=== PATIENT | female | born 1955 | race Two or more races ===

== ENCOUNTER 2020-04-17 11:26 | Outpatient (REF) | payer MEDICARE, MEDICAID, SELFPAY | END 2020-04-17 11:27 | disposition home or self-care (01) | LOC: HO.MAMMO 11:26 | PROVIDERS: Visit Provider Internal Medicine | DX: Z13.89 Encounter for screening for other disorder (principal) ==

== ENCOUNTER → 2020-05-15 08:37 | Outpatient (BNVA) | payer MEDICARE, MEDICAID, SELFPAY | PROVIDERS: PCP Internal Medicine; Referring Provider Internal Medicine; Visit Provider Surgery | DX: L73.9 Follicular disorder, unspecified (principal) | CPT/HCPCS: 99202 ==

== ENCOUNTER 2020-05-22 10:21 | Outpatient (REF) | payer MEDICARE, MEDICAID, SELFPAY ==
--- NOTE | 2020-05-22 10:26 | MM_ITS ---
EXAMINATION: BONE DENSITOMETRY CLINICAL INDICATION: Menopause. COMPARISON: Previous BD dated 04/29/2017 and baseline BD dated 04/17/2011. TECHNIQUE: Using a [employer] DXA System (software version: 13.1) manufactured by [employer], dual-energy x-ray absorptiometry was performed of the lumbar spine and left hip. The images are of good technical quality. Summary results are attached. FINDINGS: AP SPINE L1-L4: Current: BMD 1.033 g/cm2, Z-score -0.1, T-score -1.2, osteopenia, 2.9% increase from previous, 6.5% increase from baseline (<5% change is not significant). Prior: BMD 1.004 g/cm2. Baseline: BMD 0.970 g/cm2. LEFT FEMUR, NECK: Current: BMD 0.957 g/cm2, Z-score 0.7, T-score -0.6, normal. Prior: BMD 0.958 g/cm2. Baseline: BMD 0.979 g/cm2. LEFT FEMUR, TOTAL: Current: BMD 0.905 g/cm2, Z-score 0.2, T-score -0.8, normal, 1.0% decrease from previous, 0.9% increase from baseline (<5% change is not significant). Prior: BMD 0.914 g/cm2. Baseline: BMD 0.897 g/cm2. IDENTIFIED RISK FACTORS: Menopause, hysterectomy, bilateral oophorectomy. HISTORY OF FRACTURE: None listed. MEDICATIONS: Calcium, vitamin D. MM/XR DEXA axial skeleton IMPRESSION: 1. DIAGNOSIS: Osteopenia based on the lowest T-score value of -1.2 in the lumbar spine applying World Health Organization criteria. 2. 10-YEAR FRACTURE RISK PREDICTION, FRAX: Major osteoporotic fracture (clinical spine, forearm, hip or shoulder) 4.2%. Hip fracture 0.2%. 3. Treatment Recommendations: NOF guidelines recommend consideration for treatment in postmenopausal women and men age 50 and older presenting with the following: -A hip or vertebral (clinical or morphometric) fracture. -T-score less than or equal to -2.5 at the femoral neck or spine after appropriate evaluation to exclude secondary causes. -Low bone mass at the hip or spine and a 10-year fracture probability by FRAX of greater than or equal to 3% for hip fracture or greater than or equal to 20% for major osteoporotic fracture based on the [place] adapted WHO algorithm. 4. Other Recommendations: All treatment decisions require clinical judgment and consideration of individual patient factors, including patient preferences, comorbidities, previous drug use, risk factors not captured in the FRAX model (e.g. frailty, falls, vitamin D deficiency, increased bone turnover, interval significant decline in bone density) and possible under or overestimation of fracture risk by FRAX. Additional medical evaluation for secondary cause of low bone mineral density may be appropriate. FUTURE SCAN RECOMMENDATION: People with diagnosed cases of osteoporosis or at high risk for fracture should have regular bone mineral density tests. For patients eligible for Medicare, routine testing is allowed once every 2 years. The testing frequency can be increased to one year for patients who have rapidly progressing disease, those who are receiving or discontinuing medical therapy to restore bone mass, or have additional risk factors.
--- NOTE | 2020-05-22 10:49 | MM_ITS ---
EXAMINATION: MM SCREENING DIGITAL BREAST TOMOSYNTHESIS, BILATERAL CLINICAL INFORMATION: Screening. Asymptomatic. The lifetime risk of breast cancer based on the Tyrer-Cuzick Model is 6.9%. COMPARISON: Mammography: May 13, 2019 and studies dating back to April 27, 2016 TECHNIQUE: Digital breast tomosynthesis is performed in both the craniocaudal and mediolateral oblique views along with computer-aided detection (CAD). Synthesized 2D images are generated from the tomosynthesis. FINDINGS: The breasts are almost entirely fatty (ACR BI-RADS breast composition Category a). There are no significant masses, abnormal calcifications, or other abnormalities. Postsurgical changes are seen bilaterally with dystrophic calcification and fat necrosis. MM/MM tomosynthesis screening BI IMPRESSION: There are no significant changes from prior study. ASSESSMENT: BI-RADS 2: Benign RECOMMENDATION: Routine annual mammography screening. This patient's information was entered into a reminder system with a target due date for their next mammogram.
== END 2020-05-22 10:22 | disposition home or self-care (01) ==
LOC: HO.MAMMO 10:21
PROVIDERS: PCP Internal Medicine; Visit Provider Internal Medicine
DX: Z12.31 Encounter for screening mammogram for malignant neoplasm of breast (principal); Z13.820 Encounter for screening for osteoporosis; M85.89 Other specified disorders of bone density and structure, multiple sites; Z78.0 Asymptomatic menopausal state; Z90.710 Acquired absence of both cervix and uterus; Z90.722 Acquired absence of ovaries, bilateral
CPT/HCPCS: 77063; 77067; 77080

== ENCOUNTER → 2020-06-25 14:22 | Outpatient (BNVA) | payer MEDICARE, MEDICAID, SELFPAY | PROVIDERS: PCP Internal Medicine; Visit Provider Surgery | DX: L02.211 Cutaneous abscess of abdominal wall (principal); L73.9 Follicular disorder, unspecified | CPT/HCPCS: 99212 ==

== ENCOUNTER 2020-09-05 07:47 | Outpatient (REF) | payer MEDICARE, MEDICAID, SELFPAY ==
[2020-09-05 10:45] LABS: Alanine Aminotransferase 18 U/L (0-31); Albumin Level 4.1 g/dL (3.5-5.0); Alkaline Phosphatase 73 U/L (39-117); Anion Gap 15 (12-20); Aspartate Amino Transferase 19 U/L (5-31); Bilirubin Total 0.6 mg/dL (0.0-1.0); Blood Urea Nitrogen 11 mg/dL (9-16); Calcium 9.3 mg/dL (8.4-10.2); Carbon Dioxide 25 mmol/L (22-29); Chloride 105 mmol/L (96-108); Estimated Glomerular Filt Rate > 60; Glucose Random 84 mg/dL (60-115); Potassium 4.6 mmol/L (3.3-5.1); Sodium 140 mmol/L (135-145); Total Protein 6.9 g/dL (6.5-8.0)
== END 2020-09-05 07:48 | disposition home or self-care (01) ==
LOC: HO.LAB 07:47
PROVIDERS: PCP Internal Medicine; Visit Provider Student in an Organized Health Care Education/Training Program
DX: M1A.0720 Idiopathic chronic gout, left ankle and foot, without tophus (tophi) (principal); M89.49 Other hypertrophic osteoarthropathy, multiple sites; Z79.899 Other long term (current) drug therapy
CPT/HCPCS: 36415; 80053; 84550; 99212

== ENCOUNTER → 2020-09-16 12:33 | Outpatient (BNVA) | payer MEDICARE, MEDICAID, SELFPAY | PROVIDERS: PCP Internal Medicine; Visit Provider Internal Medicine Cardiovascular Disease | DX: I10 Essential (primary) hypertension (principal); R42 Dizziness and giddiness | CPT/HCPCS: 93005; 99212 ==

== ENCOUNTER 2020-10-01 13:30 | Outpatient (RCR) | payer MEDICARE, MEDICAID, SELFPAY ==
--- NOTE | 2020-09-19 15:25 | MHC.OT.OEV ---
[address] [phone] F: [phone] Occupational Therapy Evaluation Diagnosis: B/L HAND PAIN Date of Onset: 08/13/19 Attending Provider: Damian Zaman Prescribed Treatment: CHERYL LOMBARDI Follow Up Appointment: History of Current Condition: REPORTS PAIN IN L THUMB AND RIGHT ARM, INCREASE OVER THE PAST 1 YEAR. Significant Medical History: OSTEOPOROSIS, ARTHRITIS Precautions/Contraindications: UNIVERSAL Patient Goals: TO DECREASE PAIN AND INCREASE STRENGTH Hand Dominance: Right Observations: WRITHING MOVEMENTS NOTED QuickDASH Score: 70% Prior Level of Function and Occupation Self Care, Employment, Leisure: IND ADLs, IADLs HOBBIES INCLUDE: ENJOYS COOKING AND CLEANING, WATCHING TV Living Situation, Family and/or Social Support: LIVES WITH DAUGHTER Current Level of Function and Occupation Self Care, Employment, Leisure: DIFFICULTIES WITH WRINGING OUT MOP, PICKING UP OBJECTS WITH LEFT HAND; REPORTS SEVERE DIFFICULTY WITH OPENING TIGHT JAR, DOING 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 Sleep: SEVERE DIFFICULTY SLEEPING DUE TO PAIN IN LEFT THUMB Driving: DENIES DIFFICULTIES Pain Assessment Pain Score: 8 Pain Scale Used: Numeric (0 - 10) Pain Location and Description: LEFT THUMB, CMC Aggravating Factors: ACCIDENTALLY HITTING HAND ON SURFACES, GRIPPING/ HOLDING Alleviating Factors: TAKING PAIN MEDICATION; USES WARM WATER FOR COMFORT Skin and Soft Tissue Assessment Skin and Soft Tissue: Swelling Comments: ATROPHY TO THENAR REGION B/L HANDS, OA CHANGES; TENDER TO PALPATION Nerve assessment Ulnar Nerve: Median Nerve: WFL Radial Nerve: Comments: Edema Assessment Upper Extremity: Left Impaired Lower Extremity: Comments: MILD EDEMA TO LEFT HAND, DORSAL D2/D3 MCPs Dexterity Assessment Dexterity: Left Impaired Comments: FUNCTIONAL DEXTERITY TEST: LEFT 46 SECONDS (MINIMALLY FUNCTIONAL) , RIGHT 27 SECONDS Special Tests Comments: AROM(PROM) Strength Shoulder Flexion: Extension: Abduction: Internal Rotation: External Rotation: Comments: C/O R SHOULDER PAIN, CONTINUE TO ASSESS Flexion: Extension: Abduction: Internal Rotation: External Rotation: Comments: Elbow Flexion: Extension: Pronation: Supination: Comments: WFL Flexion: Extension: Pronation: Supination: Comments: Wrist Flexion: L 72, R 58 Extension: L 75, R 62 Ulnar Deviation: Radial Deviation: Comments: Flexion: Extension: Ulnar Deviation: Radial Deviation: Comments: Thumb Thumb CMC Flexion: Thumb MCP Flexion: L 52, R 60 Thumb IP Flexion: L 80, R 80 Radial Abduction: L 80, R 64 Palmar Abduction: Dorado (Kapandji 0-10): L 7/10 Comments: Digits Index MCP: PIP: DIP: Long MCP: PIP: DIP: Ring MCP: PIP: DIP: Small MCP: PIP: DIP: Comments: Gross Grasp: L 25, R 35 Lateral Pinch: L 7, R 8 Two-Point Pinch: L 4, R 5 Three-Jaw Mane: L 4, R 6 Comments: SUBMAX EFFORT ON LEFT Patient Education Primary Language: Operations Lead Required: Yes Current Knowledge: Understands information with skills for self-management Teaching Method: Demonstration Handouts Verbal Education Needs Identified on Evaluation: ADL's Disease Information Equipment Use Exercise Pain Safety How did patient/family demonstrate learning? Patient demonstrates Patient verbalizes Barriers to Learning: None Readiness for Learning: Accepting Who was educated? 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 SHE LIVES WITH HER DAUGHTER AND REQUIRES ASSIST WITH SOME IADLs YET DECLINES DIFFICULTIES WITH ADLs. SHE REPORTS A 70% LIMITATION PER THE QUICK DASH ASSESSMENT. ONGOING OT IS WARRANTED TO ADDRESS THE AREAS MENTIONED BELOW AND IMPROVE QOL. STG Duration: 4 WEEKS Short Term Goals: IND HEP IND USE OF HEAT, INCLUDING HOME PARAFFIN UNIT IND JOINT PROTECTION AND ACTIVITY MODIFICATION IND ORTHOSIS WEAR IMPROVE DEXTERITY TO L HAND TO FUNCTIONAL LEVEL PER FUNCTIONAL DEXTERITY TEST REPORT <4/10 PAIN WITH MODERATE IADLs AND WORK RELATED TASKS LTG Duration: Snf Goals: SEE ABOVE Frequency and Duration: The patient will be seen 2X/WEEK FOR 4 WEEKS Treatment Plan: Therapeutic Exercise Therapeutic Activity Home Exercise Program Splinting Neuro Re-ed Patient Education Desensitization/Sensory Re-ed Edema Control ADL Training Ultrasound NMES Iontophoresis Paraffin Fluidotherapy MHP Cold Packs Joint Mobilization Soft Tissue Mobilization Kinesiotaping Electronically Signed By: NISA SHOOK OTR/L Reviewed/agree with student documentation: N/A Therapist: Please sign and return to therapist, Thank you for your referral.
--- NOTE | 2020-10-03 14:39 | MHC.OT.DC ---
[address] [phone] F: [phone] Occupational Therapy Discharge Note Provider: Damian Zaman Diagnosis: B/L HAND PAIN Date of Evaluation: 09/19/20 Date of Discharge: 10/03/20 Treatments to Date: 5 Discharge Status: Achieved Goals Improved Function Independent with HEP Patient Elected to Stop Discharge Summary: Pt READY FOR TRANSITION TO HOME BASED PROGRAM. REPORTS GOOD UNDERSTANDING AND COMPLIANCE WITH THUMB OP SPLINT AND ACTIVITY MODIFICATION. LOW PAIN REPORTED. NO FURTHER OT WARRANTED AT THIS TIME. D/C OT SERVICES. Electronically Signed By: NISA SHOOK OTR/Liv Reviewed/agree with student documentation: N/A Therapist: Please Sign and return to therapist, thank you for your referral.
== END 2020-10-03 14:40 | disposition other institution (70) ==
LOC: HO.OT 13:30
PROVIDERS: Visit Provider Student in an Organized Health Care Education/Training Program
DX: M1A.0720 Idiopathic chronic gout, left ankle and foot, without tophus (tophi) (principal)
CPT/HCPCS: 97110; 97140; 97166; 97760

== ENCOUNTER 2020-10-16 11:06 | Emergency (ER) | payer MEDICARE, MEDICAID, SELFPAY ==
--- NOTE | ~2020-10-16 | CT_ITS ---
EXAMINATION: CT CERVICAL SPINE WITHOUT CONTRAST CLINICAL INFORMATION: Fall. COMPARISON: None TECHNIQUE: Axial images through the cervical spine without contrast. Sagittal and coronal reconstructions on the technologist workstation were performed. This CT examination was performed using dose optimization techniques as appropriate, variously including the following: *Automated exposure control *Adjustment of mA and/or kV according to patient size (this includes techniques or standardized protocols for targeted exams where dose is matched to indication/reason for exam; i.e. extremities or head) *Use of iterative reconstruction technique DLP: 381 mGy-cm FINDINGS: Bone alignment is normal. No fracture or dislocation is seen. There is multilevel degenerative disc disease and spondylosis from C3-C3-C4 to C7-T1. There are degenerative changes of the C1 dens articulation. Prevertebral soft tissues are normal. Visualized lung apices are clear. CT/CT cervical spine wo con IMPRESSION: Degenerative changes. No fracture or dislocation seen.
--- NOTE | ~2020-10-16 | XR_ITS ---
EXAMINATION: XR CHEST CLINICAL INFORMATION: Fall COMPARISON: Previous chest x-ray November 2019 TECHNIQUE: Frontal view of the chest was obtained. FINDINGS: The cardiac and mediastinal contours are stable. The lungs are clear. There is no pleural effusion or pneumothorax. Bony structures are unremarkable. XR/XR chest 1V IMPRESSION: No evidence for acute disease in the chest.
--- NOTE | ~2020-10-16 | CT_ITS ---
EXAMINATION: CT ORBIT WITHOUT CONTRAST CLINICAL INFORMATION: Left orbit injury. Evaluate for fracture. COMPARISON: None TECHNIQUE: Axial images through the orbits without contrast. Sagittal and coronal reconstructions on the technologist workstation were performed. This CT examination was performed using dose optimization techniques as appropriate, variously including the following: *Automated exposure control *Adjustment of mA and/or kV according to patient size (this includes techniques or standardized protocols for targeted exams where dose is matched to indication/reason for exam; i.e. extremities or head) *Use of iterative reconstruction technique DLP: 381 mGy-cm FINDINGS: There is preseptal soft tissue swelling overlying the left orbit. Post septal soft tissues are normal. The right orbit is normal. No fracture or dislocation is seen. Visualized paranasal sinuses, mastoid air cells and ureters are clear. The temporomandibular joints are normal. CT/CT orbit BI wo con IMPRESSION: No fracture or dislocation seen. Preseptal soft tissue swelling over the left orbit.
--- NOTE | ~2020-10-16 | CT_ITS ---
EXAMINATION: CT HEAD WITHOUT CONTRAST CLINICAL INFORMATION: Headache. Fall. COMPARISON: None TECHNIQUE: Contiguous axial imaging was performed from the skull base to vertex without intravenous administration of contrast. This CT examination was performed using dose optimization techniques as appropriate, variously including the following: *Automated exposure control *Adjustment of mA and/or kV according to patient size (this includes techniques or standardized protocols for targeted exams where dose is matched to indication/reason for exam; i.e. extremities or head) *Use of iterative reconstruction technique DLP: 623 mGy-cm FINDINGS: There is no evidence of acute intracranial hemorrhage or territorial infarction. No abnormal mass effect or midline shift is seen. Cummings to white matter differentiation is well preserved. No extra-axial fluid collections are identified. The ventricles are normal in size. There is no abnormal attenuation within the brain parenchyma. No skull fracture is seen. There is preseptal soft tissue swelling over the left orbit. There is soft tissue swelling over the left frontal bone. There is soft tissue swelling over the left posterior parietal bone near the vertex. CT/CT head/brain wo con IMPRESSION: No acute intracranial findings. Preseptal soft tissue swelling over the left orbit and left frontal bone. Post orbital soft tissues are normal. Question mild soft tissue swelling over the left posterior parietal bone near the vertex.
[2020-10-16 11:16] VITALS: BP 154/99; PULSE 90; RESP 18; TEMP 36.7; O2SAT 98; BMI 28.7
[2020-10-16 13:39] VITALS: BP 119/77; PULSE 80; RESP 16; TEMP 36.2; O2SAT 98
--- NOTE | 2020-10-16 13:55 | ED.FALL ---
HPI - Fall General Chief Complaint: Fall <ELLEN Tomas - Last Filed: 10/20/20 14:30> Stated Complaint: fall - face and chest injury <ELLEN Tomas Last Filed: 10/20/20 14:30> Time Seen by Provider: 10/16/20 12:33 <ELLEN Tomas - Last Filed: 10/20/20 14:30> History of Present Illness HPI Narrative: Patient complains of headache, left facial pain around the left orbit, neck pain and some right-sided chest wall pain after falling yesterday at home, she tripped and fell she did not faint, she has no vision changes she has no nausea or vomiting she has no retrograde amnesia, no numbness weakness or tingling no shortness of breath, no exertional pain, pain in the right side of the chest is produced when she touches it or with movement and is continuous, no palpitations no difficulty breathing no abdominal pain no nausea or vomiting <ELLEN Tomas Last Filed: 10/20/20 14:30> Related Data Home Medications: Home Medications Medication Instructions Recorded Confirmed amlodipine 5 mg tablet 5 mg PO QAM 05/15/20 09/05/20 aspirin 81 mg tablet,delayed 81 mg PO BEDTIME 05/15/20 09/05/20 release bacitracin 500 unit/gram topical TOPICAL DAILY 05/15/20 09/05/20 ointment calcium carbonate 500 mg(1,250 1 tab PO BID 05/15/20 09/05/20 mg)-vitamin D3 400 unit chewable tablet carvedilol 12.5 mg tablet 12.5 mg PO BID 05/15/20 09/05/20 lisinopril 40 mg tablet 40 mg PO DAILY 05/15/20 09/05/20 omeprazole 20 mg capsule,delayed 20 mg PO QAM 05/15/20 09/05/20 release peg [id number] 1 1 drp OPHTHALMIC (EYE) TID 05/15/20 09/05/20 %-0.2 %-0.2 % eye drops white petrolatum-mineral oil 83 OPHTHALMIC (EYE) BEDTIME 05/15/20 09/05/20 %-15 % eye ointment Previous Rx's Medication Instructions Recorded chlorhexidine gluconate 4 % 1 appl TOPICAL .3 times weekly 60 05/15/20 topical liquid Days #237 ml mupirocin 2 % topical ointment 1 appl TOPICAL BID #15 g 05/15/20 acetaminophen 650 mg 650 mg PO Q8H PRN #90 tab 09/05/20 tablet,extended release allopurinol 100 mg tablet 100 mg PO QAM #30 tab 10/09/20 acetaminophen 500 mg PO Q6H PRN #20 tab 10/16/20 oxycodone 5 mg PO Q6H PRN #10 tab 10/16/20 <ELLEN Tomas - Last Filed: 10/20/20 14:30> Allergies/Adverse Reactions: Allergies Allergy/AdvReac Type Severity Reaction Status Date / Time No Known Allergies Allergy Verified 10/16/20 11:21 <ELLEN Tomas - Last Filed: 10/20/20 14:30> Review of Systems Review of Systems: Positive for neck pain, head pain, facial pain, and right rib pain after fall Negatives are no fever no chills no dizziness no weakness no fainting no feeling faint no amnesia no confusion no vision change no numbness weakness or tingling no shortness of breath no palpitations no exertional symptoms no abdominal pain no nausea or vomiting no, no rash <ELLEN Tomas Last Filed: 10/20/20 14:30> Yes all other systems are reviewed and are negative <ELLEN Tomas - Last Filed: 10/20/20 14:30> [facility] Past Medical History Source: nursing notes reviewed <ELLEN Tomas - Last Filed: 10/20/20 14:30> Medical History: Medical History Gastritis Osteopenia Osteoporosis <ELLEN Tomas - Last Filed: 10/20/20 14:30> Surgical History: Surgical History History of delivery History of throat surgery Status post incision and drainage <ELLEN Tomas Last Filed: 10/20/20 14:30> Family History Family History: Family History Sister History of breast cancer <ELLEN Tomas Last Filed: 10/20/20 14:30> Social History Social History: Social History (Updated 09/05/20 @ 07:58 by Margarito Flaherty LPN) Alcohol intake: never <ELLEN Tomas - Last Filed: 10/20/20 14:30> Physical Exam Vital Signs: Vital Signs: Last Vital Signs Temp 97.1 F 10/16/20 13:39 Pulse 80 10/16/20 13:39 Resp 16 10/16/20 13:39 BP 119/77 10/16/20 13:39 Pulse Ox 98 10/16/20 13:39 Body Mass Index 28.7 <ELLEN Tomas - Last Filed: 10/20/20 14:30> Vital Signs: Last Vital Signs Temp 97.1 F 10/16/20 13:39 Pulse 80 10/16/20 13:39 Resp 16 10/16/20 13:39 BP 119/77 10/16/20 13:39 Pulse Ox 98 10/16/20 13:39 Body Mass Index 28.7 <Glen Reyes MD - Last Filed: 11/18/20 06:26> General appearance is no acute distress, calm comfortable and cooperative, A&O x3 There is a hematoma on the left forehead, there are some minor facial abrasions there is some tenderness to the left orbit, extraocular motions are full and intact Not there is tenderness to the back of the neck including the midline, there is tenderness to the right side lower chest wall, pain is reproduced with movement and deep breath, there is no ecchymosis or wounds on the skin The lungs are clear to auscultation with full symmetric equal breath sounds bilateral The heart no murmur auscultated The abdomen is soft nontender The extremities full range of motion x4 without tenderness swelling or deformity Neuro no focal motor or sensory deficit, gait and balance are normal, verbal interaction speech and comprehension are normal, cerebellar exam is normal, cranial nerves 2-12 intact as tested, pupils equal round reactive to light and extraocular motions are intact <ELLEN Tomas - Last Filed: 10/20/20 14:30> Course Course Course Narrative: There were no acute findings in CT exam of the head, the orbits, or the C-spine Chest x-ray was normal no pneumothorax or obvious rib fractures Patient remains comfortable throughout visit and is discharged home ambulating easily <ELLEN Tomas - Last Filed: 10/20/20 14:30> I have reviewed the chart <Glen Reyes MD - Last Filed: 11/18/20 06:26> Discharge Plan Discharge Clinical Impression: Abrasion of face, Neck strain, Multiple contusions <ELLEN Tomas - Last Filed: 10/20/20 14:30> Patient Disposition: Home, Self-Care <ELLEN Tomas - Last Filed: 10/20/20 14:30> Additional Instructions: CT scans of face neck and head did not show any dangerous or significant injury Chest x-ray did not show any injury Follow with primary doctor We gave you a tetanus shot <ELLEN Tomas - Last Filed: 10/20/20 14:30> Prescriptions: New oxycodone 5 mg tablet 5 mg PO Q6H PRN (Reason: pain) Qty: 10 RF: 0 acetaminophen 500 mg tablet 500 mg PO Q6H PRN (Reason: pain) Qty: 20 RF: 0 No Action allopurinol 100 mg tablet 100 mg PO QAM Qty: 30 RF: 3 bacitracin 500 unit/gram ointment topical DAILY RF: 0 calcium carbonate-vitamin D3 500 mg(1,250mg) -400 unit tablet,chewable 1 tab PO BID RF: 0 omeprazole 20 mg capsule,delayed release(DR/EC) 20 mg PO QAM RF: 0 carvedilol 12.5 mg tablet 12.5 mg PO BID RF: 0 amlodipine 5 mg tablet 5 mg PO QAM RF: 0 lisinopril 40 mg tablet 40 mg PO DAILY RF: 0 aspirin 81 mg tablet,delayed release (DR/EC) 81 mg PO BEDTIME RF: 0 Artificial Tears([id number]) 1-0.2-0.2 % drops 1 drp ophthalmic (eye) TID RF: 0 Artificial Tears (hemant/min) 83-15 % ointment ophthalmic (eye) BEDTIME RF: 0 mupirocin 2 % ointment 1 appl topical BID Qty: 15 RF: 0 chlorhexidine gluconate [Hibiclens] 4 % liquid 1 appl topical .3 times weekly 60 Days Qty: 237 RF: 1 acetaminophen [Tylenol Arthritis Pain] 650 mg tablet extended release 650 mg PO Q8H PRN (Reason: pain) Qty: 90 RF: 3 <ELLEN Tomas - Last Filed: 10/20/20 14:30> Interventions: ED Discharge Assessment Last Done: 10/16/20 14:08 <ELLEN Tomas - Last Filed: 10/20/20 14:30> Discharge Date/Time: 10/16/20 14:10 <ELLEN Tomas - Last Filed: 10/20/20 14:30>
[2020-10-16] MEDS: Diphth,Pertus(ACell),Tet Adult 0.5 ML SYRINGE IM (14:04)
== END 2020-10-16 14:10 | disposition home or self-care (01) ==
PROVIDERS: Emergency Provider Emergency Medicine; PCP Internal Medicine
DX: S00.81XA Abrasion of other part of head, initial encounter (principal); S16.1XXA Strain of muscle, fascia and tendon at neck level, initial encounter; S00.83XA Contusion of other part of head, initial encounter; W01.10XA Fall on same level from slipping, tripping and stumbling with subsequent striking against unspecified object, initial encounter; R07.89 Other chest pain; Y93.9 Activity, unspecified; Y92.019 Unspecified place in single-family (private) house as the place of occurrence of the external cause; Y99.9 Unspecified external cause status
CPT/HCPCS: 70450; 70480; 71045; 72125; 90471; 90715; 99284

== ENCOUNTER 2020-11-21 12:29 | Outpatient (REF) | payer MEDICARE, MEDICAID, SELFPAY ==
--- NOTE | ~2020-11-21 | US_ITS ---
EXAMINATION: US THYROID CLINICAL INFORMATION: 2 cm nodule found on CT 10/30/2020. COMPARISON: None TECHNIQUE: Linear transducer grayscale and color Doppler examination with attention to the region of the thyroid. FINDINGS: SIZE: Measurements of the thyroid lobes and nodules are given in sagittal, anteroposterior and transverse dimensions respectively. Right Thyroid Lobe: 3.6 x 1.3 x 1.41 cm, volume 3.4 mL. Parenchyma: The gland echotexture is homogeneous. Thyroid vascularity is increased. Left Thyroid Lobe: 4.3 x 1.8 x 2.0 cm, volume 8.2 mL. Parenchyma: The gland echotexture is homogeneous. Thyroid vascularity is normal. Isthmus: 0.14 cm in maximum AP dimension. Estimated total number of nodules greater than or equal to 1 cm: 1. Meter Inspector nodules are described as follows: 1. Location: Left lower. Size: 2.9 x 1.8 x 2.5 cm, volume 6.7 mL. Nodule characteristics: Composition: Solid/almost completely solid (2). Echogenicity: Isoechoic (1). Shape: Not taller than wide (0). Margins: Smooth (0). Echogenic Foci: None (0). None (0).None (0). ACR TI-RADS total points: 3 ACR TI-RADS category: 3 NODES: No lymphadenopathy is seen in the tissue surrounding the thyroid gland. US/US thyroid IMPRESSION: A large lower pole nodule seen based on ACR TI-RADS reference a short-term follow up in one year can be performed. ACR TI-RADS RECOMMENDATION REFERENCE: Ultrasound-guided fine-needle aspiration, followup ultrasound, no further follow up. * TR1 (0 point) and TR 2 (2 points): No FNA or follow up * TR3 (3 points): FNA if more than or equal to 2.5 cm in maximum dimension, follow up ultrasound in 1, 3 and 5 years if 1.5 to 2.4 cm in maximum dimension. * TR4 (4-6 points): FNA if more than or equal to 1.5 cm in maximum dimension, follow up ultrasound in 1, 2, 3 and 5 years if 1 to 1.4 cm in maximum dimension. * TR5 (more than or equal to 7 points): FNA if more than or equal to 1 cm in maximum dimension, follow up ultrasound every year for 5 years if 0.5 to 0.9 cm in maximum dimension. * TR3, TR4 or TR5 nodules that are below the size threshold for follow up receive no follow up.
== END 2020-11-21 12:30 | disposition home or self-care (01) ==
LOC: HO.US 12:29
PROVIDERS: Visit Provider Nurse Practitioner Family
DX: E04.1 Nontoxic single thyroid nodule (principal)
CPT/HCPCS: 76536

== ENCOUNTER → 2021-01-08 12:19 | Outpatient (BNVA) | payer MEDICARE, MEDICAID, SELFPAY | PROVIDERS: PCP Internal Medicine; Visit Provider Internal Medicine | DX: E04.1 Nontoxic single thyroid nodule (principal); E55.9 Vitamin D deficiency, unspecified | CPT/HCPCS: 99202 ==

== ENCOUNTER 2021-01-13 07:22 | Outpatient (REF) | payer MEDICARE, MEDICAID, SELFPAY ==
[2021-01-13 08:57] LABS: Alanine Aminotransferase 24 U/L (0-31); Alkaline Phosphatase 87 U/L (39-117); Anion Gap 15 (12-20); Aspartate Amino Transferase 21 U/L (5-31); Bilirubin Total 0.5 mg/dL (0.0-1.0); Blood Urea Nitrogen 16 mg/dL (9-16); Calcium 9.8 mg/dL (8.4-10.2); Carbon Dioxide 22 mmol/L (22-29); Chloride 108 mmol/L (96-108); Estimated Glomerular Filt Rate > 60; Glucose Random 93 mg/dL (60-115); Potassium 4.5 mmol/L (3.3-5.1); Sodium 140 mmol/L (135-145); Total Protein 6.9 g/dL (6.5-8.0)
[2021-01-13 09:21] LABS: Free T4 (Free Thyroxine) 0.93 ng/dL (0.71-1.85); Thyroid Stimulating Hormone 1.65 uIU/mL (0.32-4.0); Vitamin D 25-OH Total 19.1 ng/mL (>30)
[2021-01-15 11:32] LABS: Calcium (PTHI) 9.7 mg/dL (8.6-10.4); PTHI 60 pg/mL (14-64)
== END 2021-01-13 07:23 | disposition home or self-care (01) ==
LOC: HO.LAB 07:22
PROVIDERS: PCP Internal Medicine; Visit Provider Internal Medicine
DX: E55.9 Vitamin D deficiency, unspecified (principal); E04.1 Nontoxic single thyroid nodule
CPT/HCPCS: 36415; 80053; 82306; 83970; 84100; 84439; 84443

== ENCOUNTER 2021-01-24 08:28 | Outpatient (REF) | payer MEDICARE, MEDICAID, SELFPAY ==
--- NOTE | ~2021-01-24 | XR_ITS ---
EXAMINATION: XR KNEE STANDING, BILATERAL XR KNEE, RIGHT XR KNEE, LEFT CLINICAL INFORMATION: Pain. COMPARISON: Left knee radiographs dated 01/11/2020. TECHNIQUE: AP standing view of the right and left knee. Lateral and sunrise views of the right and left knee. FINDINGS: Right Knee: Mild medial compartment joint space narrowing. Tiny tricompartmental marginal osteophytes. No osseous erosion. No fracture or dislocation. No significant joint effusion. Ossified loose bodies at the lateral patellofemoral joint measuring up to 0.5 cm. Ossified loose body adjacent to the posterior femur measuring up to 0.8 cm. Left Knee: [id number] tricompartmental joint space narrowing with small tract compartmental marginal osteophytes. Ossified loose body in the lateral patellofemoral joint measuring 0.5 cm. No acute fracture or dislocation. No osseous erosion. No significant joint effusion. 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 LEFT KNEE: Tricompartmental osteoarthritis with a patellofemoral compartment as well as body. Findings are slightly progressed when compared to the prior examination.
--- NOTE | ~2021-01-24 | XR_ITS ---
EXAMINATION: XR KNEE STANDING, BILATERAL XR KNEE, RIGHT XR KNEE, LEFT CLINICAL INFORMATION: Pain. COMPARISON: Left knee radiographs dated 01/11/2020. TECHNIQUE: AP standing view of the right and left knee. Lateral and sunrise views of the right and left knee. FINDINGS: Right Knee: Mild medial compartment joint space narrowing. Tiny tricompartmental marginal osteophytes. No osseous erosion. No fracture or dislocation. No significant joint effusion. Ossified loose bodies at the lateral patellofemoral joint measuring up to 0.5 cm. Ossified loose body adjacent to the posterior femur measuring up to 0.8 cm. Left Knee: [id number] tricompartmental joint space narrowing with small tract compartmental marginal osteophytes. Ossified loose body in the lateral patellofemoral joint measuring 0.5 cm. No acute fracture or dislocation. No osseous erosion. No significant joint effusion. 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 LEFT KNEE: Tricompartmental osteoarthritis with a patellofemoral compartment as well as body. Findings are slightly progressed when compared to the prior examination.
--- NOTE | ~2021-01-24 | XR_ITS ---
EXAMINATION: XR KNEE STANDING, BILATERAL XR KNEE, RIGHT XR KNEE, LEFT CLINICAL INFORMATION: Pain. COMPARISON: Left knee radiographs dated 01/11/2020. TECHNIQUE: AP standing view of the right and left knee. Lateral and sunrise views of the right and left knee. FINDINGS: Right Knee: Mild medial compartment joint space narrowing. Tiny tricompartmental marginal osteophytes. No osseous erosion. No fracture or dislocation. No significant joint effusion. Ossified loose bodies at the lateral patellofemoral joint measuring up to 0.5 cm. Ossified loose body adjacent to the posterior femur measuring up to 0.8 cm. Left Knee: Fntk-go-gcbrpfwo tricompartmental joint space narrowing with small tract compartmental marginal osteophytes. Ossified loose body in the lateral patellofemoral joint measuring 0.5 cm. No acute fracture or dislocation. No osseous erosion. No significant joint effusion. 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 LEFT KNEE: Tricompartmental osteoarthritis with a patellofemoral compartment as well as body. Findings are slightly progressed when compared to the prior examination.
== END 2021-01-24 08:29 | disposition home or self-care (01) ==
LOC: HO.HOSX 08:28
PROVIDERS: PCP Internal Medicine; Visit Provider Physician Assistant
DX: M25.562 Pain in left knee (principal); M25.561 Pain in right knee; M17.0 Bilateral primary osteoarthritis of knee; M81.0 Age-related osteoporosis without current pathological fracture; E55.9 Vitamin D deficiency, unspecified; Z87.891 Personal history of nicotine dependence
CPT/HCPCS: 20610; 73560; 73565; 99202; J1040

== ENCOUNTER → 2021-02-12 12:58 | Outpatient (BNVA) | payer MEDICARE, MEDICAID, SELFPAY | PROVIDERS: Visit Provider Nurse Practitioner Family | DX: M1A.0720 Idiopathic chronic gout, left ankle and foot, without tophus (tophi) (principal); M89.49 Other hypertrophic osteoarthropathy, multiple sites | CPT/HCPCS: 99212 ==

== ENCOUNTER → 2021-02-19 13:13 | Outpatient (BNVA) | payer MEDICARE, MEDICAID, SELFPAY | PROVIDERS: PCP Internal Medicine; Visit Provider Nurse Practitioner Family | DX: I10 Essential (primary) hypertension (principal); R42 Dizziness and giddiness | CPT/HCPCS: 99212 ==

== ENCOUNTER 2021-02-27 08:35 | Outpatient (REF) | payer MEDICARE, MEDICAID, SELFPAY ==
--- NOTE | 2021-02-27 09:24 | PM.OP ---
Brief Operative Note Date of Service: 02/27/21 Pre-op diagnosis: Multinodular Thyroid Procedure: This is doctor Melony Schuster. This is an ultrasound-guided fine-needle aspiration report. Date of Examination: 02/27/2021 Indication: Multinodular Thyroid Porcedure: Procedure was explained to the patient. Alternatives, the risk and benefits were discussed. Written consent was obtained. A time-out was also obtained. After sterile preparation, fine-needle aspiration of a 2.9 cm left lower pole thyroid nodule was performed using direct ultrasound guidance to confirm accurate needle placement. Three aspirations were made using 27 gauge needles. Samples were submitted for cytology. 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 The patient tolerated the procedure well. Aftercare instructions were provided. Impression: Uncomplicated fine needle aspiration biopsy of a 2.9 cm left lower pole thyroid nodule under ultrasound guidance. Surgeon: Melony Schuster, DO Was an [employer] Developer used for this Procedure?: No Estimated blood loss (mL): 0
== END 2021-02-27 08:36 | disposition home or self-care (01) ==
LOC: HO.US 08:35
PROVIDERS: Visit Provider Internal Medicine
DX: E04.1 Nontoxic single thyroid nodule (principal)
CPT/HCPCS: 10005; 88172; 88173

== ENCOUNTER → 2021-03-13 10:08 | Outpatient (BNVA) | payer MEDICARE, MEDICAID, SELFPAY | PROVIDERS: PCP Internal Medicine; Visit Provider Internal Medicine | DX: Z13.89 Encounter for screening for other disorder (principal) | CPT/HCPCS: Q3014 ==

== ENCOUNTER 2021-05-23 14:28 | Outpatient (REF) | payer MEDICARE, MEDICAID, SELFPAY ==
--- NOTE | ~2021-05-23 | MM_ITS ---
EXAMINATION: MM SCREENING DIGITAL BREAST TOMOSYNTHESIS, BILATERAL CLINICAL INFORMATION: Screening. Asymptomatic. Remote history reduction mammoplasty, 2008. The lifetime risk of breast cancer based on the Tyrer-Cuzick Model is 7%. COMPARISON: Mammography: 02/21/2020, 05/13/2019, 05/11/2018, 04/29/2017 TECHNIQUE: Digital breast tomosynthesis is performed in both the craniocaudal and mediolateral oblique views along with computer-aided detection (CAD). Synthesized 2D images are generated from the tomosynthesis. FINDINGS: There are scattered areas of fibroglandular density (ACR BI-RADS breast composition Category b). There is old stable scarring, scattered oil cysts, and scattered benign isolated and grouped coarse calcifications consistent with the prior reduction mammoplasty. Left breast shows no interval changes from prior study. Right breast has 4 x 5 mm focal asymmetric density upper outer quadrant, or approximately 6 cm from nipple. Tiny benign oil cyst near this area noted is no longer demonstrated. Patient will be recalled to further characterize. MM/MM tomosynthesis screening BI IMPRESSION: 1. Right: Small focal asymmetric density upper outer quadrant, or approximately 5 x 4 mm. Left: No significant changes from prior exams. ASSESSMENT: BI-RADS 0: Incomplete - Need Additional Imaging Evaluation RECOMMENDATION: 1. Additional views of the right breast (spot CC, spot ML). 2. Targeted ultrasound if warranted after review of the additional views. 3. Radiology department staff will contact the patient for additional imaging. This patient's information was entered into a reminder system with a target due date for their next mammogram.
== END 2021-05-23 14:29 | disposition home or self-care (01) ==
LOC: HO.MAMMO 14:28
PROVIDERS: Visit Provider Internal Medicine
DX: Z12.31 Encounter for screening mammogram for malignant neoplasm of breast (principal)
CPT/HCPCS: 77063; 77067

== ENCOUNTER 2021-05-28 10:07 | Outpatient (REF) | payer MEDICARE, MEDICAID, SELFPAY ==
--- NOTE | ~2021-05-28 | MM_ITS ---
EXAMINATION: MM DIAGNOSTIC DIGITAL BREAST TOMOSYNTHESIS, RIGHT US DIAGNOSTIC ULTRASOUND BREAST, RIGHT CLINICAL INFORMATION: Recall from screening for focal asymmetric density upper outer right breast, possibly related to sequela from remote reduction mammoplasty. COMPARISON: Mammography: 05/23/2021, 02/21/2020, 05/13/2019, 05/11/2018, 04/29/2017, 04/27/1960 TECHNIQUE: Digital breast tomosynthesis is performed. 2D images are generated from the tomosynthesis. The following views are obtained: Spot CC, spot MLO, spot ML x2. Ultrasound right breast is targeted to the outer breast. Grayscale imaging and color Doppler are performed without and with harmonics. FINDINGS: There are scattered areas of fibroglandular density (ACR BI-RADS breast composition Category b). Additional views show small asymmetric density mid outer breast on the spot CC view. Finding is poorly visualized on the MLO or ML views. There are scattered oil cysts and stable stromal markings. In retrospect, the finding for recall resides at the site of a small oil cyst of similar size on prior mammograms dating back to 2016. The oil cyst is no longer demonstrated, apparently replaced by the recently noted finding. Ultrasound right breast shows of focal fat necrosis mid outer breast 9:00 position 7 cm from nipple. This appears as an oval hyperechoic area measuring 7 x 4 mm with an internal small circumscribed hypoechoic focus measuring under 3 mm. There is no architectural abnormality or suspicious finding on ultrasound. Results are discussed with the patient at time of visit. Finding on recent mammography is suspected to represent fat necrosis at site of an oil cyst. Ultrasound also confirms small focus fat necrosis. Management options discussed with patient including short interval follow-up as well as stereotactic sampling. Patient is in agreement to follow-up right breast in 6 months. MM/MM tomosynthesis added views R IMPRESSION: Finding on recent mammography is suspected to represent fat necrosis at site of a prior oil cyst of similar size. ASSESSMENT: BI-RADS 3: Probably Benign RECOMMENDATION: Diagnostic right mammography in 6 months. This patient's information was entered into a reminder system with a target due date for their next mammogram.
== END 2021-05-28 10:08 | disposition home or self-care (01) ==
LOC: HO.MAMMO 10:07
PROVIDERS: Visit Provider Internal Medicine
DX: R92.2 Inconclusive mammogram (principal)
CPT/HCPCS: 76642; 77061; 77065

== ENCOUNTER 2021-06-11 10:21 | Outpatient (REF) | payer MEDICARE, MEDICAID, SELFPAY | END 2021-06-11 10:22 | disposition home or self-care (01) | LOC: HO.LAB 10:21 | PROVIDERS: Visit Provider Internal Medicine | DX: Z20.822 Contact with and (suspected) exposure to COVID-19 (principal) | CPT/HCPCS: C9803; U0003; U0005 ==

== ENCOUNTER 2021-06-25 13:02 | Outpatient (REF) | payer MEDICARE, MEDICAID, SELFPAY ==
[2021-06-25 15:22] LABS: Binax Internal Control QC Valid; Binax Now Covid-19 Ag Negative (Negative)
== END 2021-06-25 13:03 | disposition home or self-care (01) ==
LOC: HO.LAB 13:02
PROVIDERS: Visit Provider Internal Medicine
DX: Z20.822 Contact with and (suspected) exposure to COVID-19 (principal)
CPT/HCPCS: C9803

== ENCOUNTER 2021-07-17 09:34 | Outpatient (REF) | payer MEDICARE, MEDICAID, SELFPAY ==
[2021-07-17 11:55] LABS: Alanine Aminotransferase 22 U/L (0-31); Albumin Level 3.9 g/dL (3.5-5.0); Alkaline Phosphatase 81 U/L (39-117); Anion Gap 12 (12-20); Aspartate Amino Transferase 20 U/L (5-31); Bilirubin Total 0.5 mg/dL (0.0-1.0); Blood Urea Nitrogen 11 mg/dL (9-16); Calcium 9.9 mg/dL (8.4-10.2); Carbon Dioxide 26 mmol/L (22-29); Chloride 108 mmol/L (96-108); Estimated Glomerular Filt Rate > 60; Glucose Random 93 mg/dL (60-115); Potassium 4.6 mmol/L (3.3-5.1); Sodium 141 mmol/L (135-145); Total Protein 6.9 g/dL (6.5-8.0)
== END 2021-07-17 09:35 | disposition home or self-care (01) ==
LOC: HO.LAB 09:34
PROVIDERS: Visit Provider Nurse Practitioner Family
DX: M10.9 Gout, unspecified (principal)
CPT/HCPCS: 36415; 80053; 84550

== ENCOUNTER 2021-08-20 05:43 | Emergency (ER) | payer MEDICARE, MEDICAID, SELFPAY ==
[2021-08-20 05:51] VITALS: BP 168/103; PULSE 78; RESP 16; TEMP 37; O2SAT 97; BMI 28.8
--- NOTE | 2021-08-20 06:24 | ECG_ITS ---
Test Reason : HYPERTENSION Blood Pressure : / mmHG Vent. Rate : 070 BPM Atrial Rate : 070 BPM P-R Int : 186 ms QRS Dur : 074 ms QT Int : 390 ms P-R-T Axes : 000 -21 -04 degrees QTc Int : 421 ms Normal sinus rhythm Normal ECG When compared with ECG of 22-NOV-2019 12:25, Inverted T waves have replaced nonspecific T wave abnormality in Inferior leads Referred By: Briana Souza Electronically Signed By:SUSIE DONG MD
--- NOTE | 2021-08-20 06:51 | ED.GENADULT ---
HPI - General Adult General Chief complaint: General Medical Stated complaint: diarrhea/nausea? Time Seen by Provider: 08/20/21 06:24 Source: patient Mode of arrival: ambulatory Limitations: no limitations History of Present Illness HPI narrative: Patient comes to the emergency room complaining of high blood pressure. Patient states that she feels that the front of her head feels very hot. Patient takes her blood pressure at home, states it has been approximately 190 systolic for approximately 2-3 days. Patient states that on August 11, patient had a thyroidectomy done. Patient states that her fine-needle biopsy was suspicious for papillary thyroid cancer. However, patient states that approximately 3 days ago, she received news, her pathology report is back, patient did not have cancer. Patient states that she is very upset that she had a thyroidectomy done , and since she received dose news, patient states that her blood pressure has been elevated. Related Data Home Medications Medication Instructions Recorded Confirmed amlodipine 5 mg tablet 5 mg PO QAM 05/15/20 03/13/21 aspirin 81 mg tablet,delayed 81 mg PO BEDTIME 05/15/20 03/13/21 release calcium carbonate 500 mg-vitamin 1 tab PO BID 05/15/20 03/13/21 D3 10 mcg (400 unit) chewable tablet carvedilol 12.5 mg tablet 12.5 mg PO BID 05/15/20 03/13/21 lisinopril 40 mg tablet 40 mg PO DAILY 05/15/20 03/13/21 omeprazole 20 mg capsule,delayed 20 mg PO QAM 05/15/20 03/13/21 release peg [id number] 1 1 drp OPHTHALMIC (EYE) TID 05/15/20 03/13/21 %-0.2 %-0.2 % eye drops white petrolatum-mineral oil 83 OPHTHALMIC (EYE) BEDTIME 05/15/20 03/13/21 %-15 % eye ointment Previous Rx's Medication Instructions Recorded chlorhexidine gluconate 4 % 1 appl TOPICAL .3 times weekly 60 05/15/20 topical liquid (Hibiclens) Days #237 ml mupirocin 2 % topical ointment 1 appl TOPICAL BID #15 g 05/15/20 acetaminophen 650 mg 650 mg PO Q8H PRN #90 tab 09/05/20 tablet,extended release (Tylenol Arthritis Pain) acetaminophen 500 mg tablet 500 mg PO Q6H PRN #20 tab 10/16/20 cholecalciferol (vitamin D3) 1,250 1,250 mcg PO QWEEK 56 Days #8 cap 03/13/21 mcg (50,000 unit) capsule cholecalciferol (vitamin D3) 50 50 mcg PO DAILY 30 Days #30 cap 03/13/21 mcg (2,000 unit) capsule allopurinol 100 mg tablet 100 mg PO QAM #30 tab 08/15/21 amlodipine 5 mg tablet 5 mg PO DAILY #30 tab 08/20/21 Allergies Allergy/AdvReac Type Severity Reaction Status Date / Time No Known Allergies Allergy Verified 03/13/21 13:09 Review of Systems Review of Systems: Constitutional : No Weight loss, No Fever, No Chills, No Night Sweats, No Fatigue, No Malaise ENT/Mouth : No Hearing loss, No Ear Pain, No Nasal Congestion, No Sinus Pain, No Hoarseness, No sore throat, No Rhinorrhea, No Swallowing Difficulty Eyes: No Eye Pain, No Swelling, No Redness, No Foreign Body, No Discharge, No Vision Changes Cardiovascular : No Chest Pain, No SOB, No Dyspnea on Exertion, No Orthopnea, No Edema, No Palpitations, complaining of high blood pressure of 190 systolic Respiratory : No Cough, No Sputum, No Wheezing, No Smoke Exposure, No Dyspnea Gastrointestinal : No Nausea, No Vomiting, No Diarrhea, No Constipation, No abdominal Pain, No Hematochezia, No Melena Genitourinary : no irregular bleeding, No Dysuria, No Urinary Frequency, No Hematuria, No Urinary Incontinence, No Urgency, No Flank Pain, No Urinary Flow Changes, No Hesitancy Musculoskeletal : No joint pain, No Myalgias, No Joint Swelling Skin : No Skin Lesions, No rash Neuro : No Weakness, No Numbness, No Paresthesias, No Loss of Consciousness, No Dizziness, complaining of head pressure, sensation of head warmth in the forehead Psych : No Anxiety/Panic, No Depression, No SI/HI/AH/VH, No Social Issues, Heme/Lymph: No Bruising, No Bleeding,No Lymphadenopathy Endocrine : No Polyuria, No Polydipsia, No Temperature Intolerance PMFSH Past Medical History Medical History Essential hypertension Gastritis Osteopenia Osteoporosis Thyroid nodule Vitamin D deficiency Surgical History History of delivery History of throat surgery Status post incision and drainage Family History Family History Sister History of breast cancer Father Automobile collision Mother Heart attack Social History Social History Alcohol intake: never Patient Tobacco Use Status: Former Tobacco user Tobacco use type: Cigarette Cigarettes Per Day: 5 Years Smoked: 10 Use of substances other than those prescribed or required for medical reasons: No Advance Directives: No Advance Directives Information Provided: Yes Current occupational status: employed 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 Oriented X3. No acute distress. Eyes: Pupils equal, round and reactive to light. ENT: Pharynx normal. Neck: Healing horizontal incision in the neck, no signs of infection CVS: Normal heart rate and rhythm. Pulses normal. Normal S1 and S2 Respiratory: No respiratory distress. Breath sounds normal. No Wheezing. No rales Abdomen: Soft and nontender. No rigidity. No distention. Skin: Skin warm and dry. Normal skin color. Normal skin turgor. Extremities: No lower extremity edema. No Lacerations. No Rash Neuro: Oriented X 3. No motor deficit. No sensory deficit. Moving all extermities. No slurred speech. Course Course Course Narrative: Labs pending, the TSH and EKG. Patient was Haven her home medications lisinopril 40 mg, carvedilol 12.5 mg, and her amlodipine instead of 5 mg, she was given 10 mg. Patient's TSH is slightly decreased, free T4 within normal limits. At this time, patient has been only on her medication for a week. Patient instructed to continue taking the current dose. Patient's blood pressure improved to 131/81 after taking her home medications +5 additional mg of amlodipine. Patient asymptomatic. Medical Decision Making Lab Data Result diagrams: 08/20/21 07:15 08/20/21 07:02 Labs: Lab Results 08/20/21 08/20/21 08/20/21 Range/Units 07:02 07:15 07:15 WBC 6.6 (4.8-10.8) X10*3/uL RBC 4.42 (4.20-5.50) X10*6/uL Hgb 12.8 (12.0-16.0) g/dl Hct 39.6 (37.0-47.0) % MCV 89.6 (80.0-98.0) fL MCH 29.0 (27.0-33.0) pg MCHC 32.3 (31.0-35.0) g/dl RDW 13.3 (11.0-16.0) % Plt Count 303 (160-400) X10*3/uL MPV 10.3 (9.4-12.3) fL Immature Gran % (Auto) 0.3 (0.0-0.4) % Neut % (Auto) 45.4 (45-73) % Lymph % (Auto) 38.2 (20-40) % [place] % (Auto) 11.7 H (2-11) % Eos % (Auto) 3.2 (0-4) % Baso % (Auto) 1.2 (0-2) % Lymph # (Auto) 2.5 (1.2-4.9) X10*3/uL [place] # (Auto) 0.8 (0.1-1.2) X10*3/uL Eos # (Auto) 0.2 (0.0-0.4) X10*3/uL Baso # (Auto) 0.1 (0.0-0.2) X10*3/uL Abs Immat Gran (auto) 0.02 (0.00-0.03) X10*3/uL Absolute Neuts (auto) 3.0 (2.0-8.3) x10*3/uL Absolute Nucleated RBC 0.000 (0.0-0.012) X10*3/uL Nucleated RBC % (auto) 0.0 (0.0-0.2) /100WBC Sodium 140 (135-145) mmol/L Potassium 4.6 (3.3-5.1) mmol/L Chloride 107 (96-108) mmol/L Carbon Dioxide 25 (22-29) mmol/L Anion Gap 13 (12-20) BUN 13 (9-16) mg/dL Creatinine 0.75 (0.5-1.4) mg/dL Estim Creat Clear Calc 77.1 Estimated GFR > 60 Random Glucose 95 (60-115) mg/dL Calcium 9.7 (8.4-10.2) mg/dL Total Bilirubin 0.6 (0.0-1.0) mg/dL Direct Bilirubin 0.2 (0.0-0.5) mg/dL AST 19 (5-31) U/L ALT 24 (0-31) U/L Alkaline Phosphatase 76 (39-117) U/L Troponin I High Sens < 3.5 (<3.5-17.0) ng/L B-Natriuretic Peptide 42 (<100) pg/mL Total Protein 6.8 (6.5-8.0) g/dL Albumin 3.8 (3.5-5.0) g/dL TSH 0.21 L (0.32-4.0) uIU/mL Free T4 1.55 (0.71-1.85) ng/dL Discharge Plan Discharge Clinical Impression: Hypertension Patient Disposition: Home, Self-Care Instructions: Hypertension (ED) Additional Instructions: Please follow-up with your primary care physician tomorrow. If you have any worsening or new symptoms, please return to the emergency room or call 911 Prescriptions: New amlodipine 5 mg tablet 5 mg PO DAILY Qty: 30 0RF Rx Instructions: Add this tablet of amlodipine 5 mg to your current medication regimen. Take 10 mg of amlodipine per day No Action allopurinol 100 mg tablet 100 mg PO QAM Qty: 30 4RF acetaminophen 500 mg tablet 500 mg PO Q6H PRN (Reason: pain) Qty: 20 0RF calcium carbonate-vitamin D3 500 mg(1,250mg) -400 unit tablet,chewable 1 tab PO BID 0RF omeprazole 20 mg capsule,delayed release(DR/EC) 20 mg PO QAM 0RF carvedilol 12.5 mg tablet 12.5 mg PO BID 0RF amlodipine 5 mg tablet 5 mg PO QAM 0RF lisinopril 40 mg tablet 40 mg PO DAILY 0RF aspirin 81 mg tablet,delayed release (DR/EC) 81 mg PO BEDTIME 0RF Artificial Tears([id number]) 1-0.2-0.2 % drops 1 drp ophthalmic (eye) TID 0RF Artificial Tears (hemant/min) 83-15 % ointment ophthalmic (eye) BEDTIME 0RF mupirocin 2 % ointment 1 appl topical BID Qty: 15 0RF chlorhexidine gluconate [Hibiclens] 4 % liquid 1 appl topical .3 times weekly 60 Days Qty: 237 1RF acetaminophen [Tylenol Arthritis Pain] 650 mg tablet extended release 650 mg PO Q8H PRN (Reason: pain) Qty: 90 3RF cholecalciferol (vitamin D3) 50 mcg (2,000 unit) capsule 50 mcg PO DAILY 30 Days Qty: 30 11RF cholecalciferol (vitamin D3) 1,250 mcg (50,000 unit) capsule 1,250 mcg PO QWEEK 56 Days Qty: 8 0RF
[2021-08-20 07:06] VITALS: BP 129/82; PULSE 67; RESP 18; O2SAT 95
[2021-08-20 07:19] LABS: MANUAL DIFF FLAG NO
[2021-08-20 07:22] LABS: Basophils Absolute Auto 0.1 X10*3/uL (0.0-0.2); Basophils Percent Auto 1.2 % (0-2); Eosinophils Absolute Auto 0.2 X10*3/uL (0.0-0.4); Eosinophils Percent Auto 3.2 % (0-4); Hematocrit 39.6 % (37.0-47.0); Hemoglobin 12.8 g/dl (12.0-16.0); Imm Gran Abs Auto 0.02 X10*3/uL (0.00-0.03); Imm Gran Pct Auto 0.3 % (0.0-0.4); Lymphocytes Absolute Auto 2.5 X10*3/uL (1.2-4.9); Lymphocytes Percent Auto 38.2 % (20-40); Mean Corpuscular HGB Conc 32.3 g/dl (31.0-35.0); Mean Corpuscular Volume 89.6 fL (80.0-98.0); Mean Platelet Volume 10.3 fL (9.4-12.3); Monocytes Absolute Auto 0.8 X10*3/uL (0.1-1.2); Monocytes Percent Auto 11.7 % (2-11); Neutrophils Percent Auto 45.4 % (45-73); Platelet Count 303 X10*3/uL (160-400); Red Blood Count 4.42 X10*6/uL (4.20-5.50); Red Cell Distribution Width 13.3 % (11.0-16.0); White Blood Count 6.6 X10*3/uL (4.8-10.8)
[2021-08-20 07:28] LABS: Alanine Aminotransferase 24 U/L (0-31); Albumin Level 3.8 g/dL (3.5-5.0); Alkaline Phosphatase 76 U/L (39-117); Anion Gap 13 (12-20); Aspartate Amino Transferase 19 U/L (5-31); Bilirubin Direct 0.2 mg/dL (0.0-0.5); Bilirubin Total 0.6 mg/dL (0.0-1.0); Blood Urea Nitrogen 13 mg/dL (9-16); Calcium 9.7 mg/dL (8.4-10.2); Carbon Dioxide 25 mmol/L (22-29); Chloride 107 mmol/L (96-108); Creatinine Clr Calc Pharmacy 77.1; Estimated Glomerular Filt Rate > 60; Glucose Random 95 mg/dL (60-115); Potassium 4.6 mmol/L (3.3-5.1); Sodium 140 mmol/L (135-145); Total Protein 6.8 g/dL (6.5-8.0)
[2021-08-20] MEDS: lisinopriL 40 MG TABLET PO (07:31)
[2021-08-20] MEDS: amLODIPine Besylate 10 MG TABLET PO (07:31)
[2021-08-20] MEDS: carvediloL 12.5 MG TABLET PO (07:32)
[2021-08-20 07:43] LABS: B Type Natriuretic Peptide 42 pg/mL (<100); Troponin-I High Sensitivity < 3.5 ng/L (<3.5-17.0)
[2021-08-20 08:32] VITALS: BP 131/81; PULSE 66; RESP 18; O2SAT 98
[2021-08-20 08:44] LABS: TSH reflex Free T4 0.21 uIU/mL (0.32-4.0)
[2021-08-20 09:42] LABS: Free T4 (Free Thyroxine) 1.55 ng/dL (0.71-1.85)
[2021-08-20 10:21] VITALS: BP 105/77; PULSE 74; RESP 18; O2SAT 98
== END 2021-08-20 10:31 | disposition home or self-care (01) ==
PROVIDERS: Emergency Provider Emergency Medicine
DX: I10 Essential (primary) hypertension (principal); R06.02 Shortness of breath; Z79.899 Other long term (current) drug therapy; Z79.82 Long term (current) use of aspirin; Z87.891 Personal history of nicotine dependence
CPT/HCPCS: 36415; 80048; 80076; 83880; 84439; 84443; 84484; 85025; 93005; 99283; 99284

== ENCOUNTER → 2021-08-28 14:34 | Outpatient (BNVA) | payer MEDICARE, MEDICAID, SELFPAY | PROVIDERS: Referring Provider Internal Medicine; Visit Provider Nurse Practitioner | DX: Z13.89 Encounter for screening for other disorder (principal) ==

== ENCOUNTER 2021-09-15 11:19 | Outpatient (REF) | payer MEDICARE, MEDICAID, SELFPAY ==
[2021-09-15 12:41] LABS: Alanine Aminotransferase 31 U/L (0-31); Albumin Level 3.7 g/dL (3.5-5.0); Alkaline Phosphatase 75 U/L (39-117); Anion Gap 11 (12-20); Aspartate Amino Transferase 22 U/L (5-31); Bilirubin Total 0.4 mg/dL (0.0-1.0); Blood Urea Nitrogen 11 mg/dL (9-16); Calcium 9.5 mg/dL (8.4-10.2); Carbon Dioxide 22 mmol/L (22-29); Chloride 109 mmol/L (96-108); Estimated Glomerular Filt Rate > 60; Glucose Random 102 mg/dL (60-115); Phosphorus 3.7 mg/dL (2.7-4.5); Potassium 4.5 mmol/L (3.3-5.1); Sodium 137 mmol/L (135-145); Total Protein 6.5 g/dL (6.5-8.0)
[2021-09-15 12:47] LABS: Free T4 (Free Thyroxine) 1.73 ng/dL (0.71-1.85); Thyroid Stimulating Hormone 0.03 uIU/mL (0.32-4.0); Vitamin D 25-OH Total 41.9 ng/mL (>30)
[2021-09-16 13:27] LABS: Calcium (PTHI) 9.3 mg/dL (8.6-10.4); PTHI 95 pg/mL (16-77)
== END 2021-09-15 11:20 | disposition home or self-care (01) ==
LOC: HO.LAB 11:19
PROVIDERS: PCP Internal Medicine; Visit Provider Internal Medicine
DX: M1A.0720 Idiopathic chronic gout, left ankle and foot, without tophus (tophi) (principal); E04.1 Nontoxic single thyroid nodule; E55.9 Vitamin D deficiency, unspecified
CPT/HCPCS: 36415; 80053; 82306; 83970; 84100; 84439; 84443

== ENCOUNTER → 2021-09-16 13:47 | Outpatient (BNVA) | payer MEDICARE, MEDICAID, SELFPAY | PROVIDERS: PCP Internal Medicine; Referring Provider Internal Medicine; Visit Provider Nurse Practitioner Family | DX: I10 Essential (primary) hypertension (principal) | CPT/HCPCS: 99212 ==

== ENCOUNTER 2021-10-27 10:48 | Outpatient (REF) | payer MEDICARE, MEDICAID, SELFPAY ==
[2021-10-27 12:34] LABS: Free T4 (Free Thyroxine) 1.44 ng/dL (0.71-1.85); Thyroid Stimulating Hormone 0.27 uIU/mL (0.32-4.0)
== END 2021-10-27 10:49 | disposition home or self-care (01) ==
LOC: HO.LAB 10:48
PROVIDERS: Nurse Practitioner Gerontology; PCP Internal Medicine; Visit Provider Internal Medicine
DX: E03.9 Hypothyroidism, unspecified (principal)
CPT/HCPCS: 36415; 84439; 84443

== ENCOUNTER → 2021-11-06 09:21 | Outpatient (BNVA) | payer MEDICARE, MEDICAID, SELFPAY | PROVIDERS: PCP Internal Medicine; Visit Provider Internal Medicine | DX: E55.9 Vitamin D deficiency, unspecified (principal); E89.0 Postprocedural hypothyroidism | CPT/HCPCS: Q3014 ==

== ENCOUNTER 2021-11-21 13:08 | Outpatient (REF) | payer MEDICARE, MEDICAID, SELFPAY ==
--- NOTE | ~2021-11-21 | MM_ITS ---
EXAMINATION: MM DIAGNOSTIC DIGITAL BREAST TOMOSYNTHESIS, RIGHT CLINICAL INFORMATION: Six-month follow up density. Previous breast reduction surgery. The lifetime risk of breast cancer based on the Tyrer-Cuzick Model is 6.5%. COMPARISON: Mammography: 05/28/2021 and studies dating back to 03/30/2012. TECHNIQUE: Digital breast tomosynthesis is performed in both the craniocaudal and mediolateral oblique views along with computer-aided detection (CAD). Synthesized 2D images are generated from the tomosynthesis. FINDINGS: The breasts are almost entirely fatty (ACR BI-RADS breast composition Category a). There are no new significant masses, abnormal calcifications, or other abnormalities. Previously noted density about the upper outer aspect of the right breast is not identified on today's study. Results are provided to the patient at time of visit by the technologist. MM/MM tomosynthesis diagnostic RT IMPRESSION: Previously noted right breast density no longer evident. No new suspicious right breast findings. ASSESSMENT: BI-RADS 1: Negative RECOMMENDATION: Routine annual mammography screening, due in 6 months. This patient's information was entered into a reminder system with a target due date for their next mammogram.
== END 2021-11-21 13:09 | disposition home or self-care (01) ==
LOC: HO.MAMMO 13:08
PROVIDERS: Visit Provider Internal Medicine
DX: R92.2 Inconclusive mammogram (principal)
CPT/HCPCS: 77061; 77065

== ENCOUNTER 2022-01-02 10:24 | Outpatient (REF) | payer MEDICARE, MEDICAID, SELFPAY ==
[2022-01-02 11:40] LABS: Free T4 (Free Thyroxine) 1.29 ng/dL (0.71-1.85)
== END 2022-01-02 10:25 | disposition home or self-care (01) ==
LOC: HO.LAB 10:24
PROVIDERS: PCP Internal Medicine; Visit Provider Internal Medicine
DX: E03.9 Hypothyroidism, unspecified (principal)
CPT/HCPCS: 36415; 84439; 84443

== ENCOUNTER → 2022-01-06 10:29 | Outpatient (BNVA) | payer MEDICARE, MEDICAID, SELFPAY | PROVIDERS: PCP Internal Medicine; Visit Provider Nurse Practitioner Family | DX: M1A.0720 Idiopathic chronic gout, left ankle and foot, without tophus (tophi) (principal); M17.0 Bilateral primary osteoarthritis of knee | CPT/HCPCS: Q3014 ==

== ENCOUNTER → 2022-01-07 07:57 | Outpatient (BNVA) | payer MEDICARE, MEDICAID, SELFPAY | PROVIDERS: PCP Internal Medicine; Visit Provider Internal Medicine | DX: E89.0 Postprocedural hypothyroidism (principal); E55.9 Vitamin D deficiency, unspecified; Z79.899 Other long term (current) drug therapy | CPT/HCPCS: 99212 ==

== ENCOUNTER → 2022-02-23 12:33 | Outpatient (BNVA) | payer MEDICARE, MEDICAID, SELFPAY | PROVIDERS: PCP Internal Medicine; Referring Provider Internal Medicine; Visit Provider Internal Medicine Cardiovascular Disease | DX: I10 Essential (primary) hypertension (principal); R42 Dizziness and giddiness; Z79.899 Other long term (current) drug therapy | CPT/HCPCS: 93005; 99212 ==

== ENCOUNTER 2022-05-26 13:11 | Outpatient (REF) | payer MEDICARE, MEDICAID, SELFPAY ==
--- NOTE | ~2022-05-26 | MM_ITS ---
EXAMINATION: MM SCREENING DIGITAL BREAST TOMOSYNTHESIS, BILATERAL CLINICAL INFORMATION: Screening. Asymptomatic. The lifetime risk of breast cancer based on the Tyrer-Cuzick Model is 7%. COMPARISON: Mammography: November 21, 2021 and studies dating back to April 27, 2016 TECHNIQUE: Digital breast tomosynthesis is performed in both the craniocaudal and mediolateral oblique views along with computer-aided detection (CAD). Synthesized 2D images are generated from the tomosynthesis. FINDINGS: The breasts are almost entirely fatty (ACR BI-RADS breast composition Category a). There are no new significant masses, abnormal calcifications, or other abnormalities. MM/MM tomosynthesis screening BI IMPRESSION: No significant changes from prior exam. ASSESSMENT: BI-RADS 1: Negative RECOMMENDATION: Routine annual mammography screening. This patient's information was entered into a reminder system with a target due date for their next mammogram.
[2022-05-26 16:46] LABS: Albumin Level 3.9 g/dL (3.5-5.0); Free T4 (Free Thyroxine) 1.32 ng/dL (0.71-1.85); Phosphorus 4.4 mg/dL (2.7-4.5); Vitamin D 25-OH Total 46.4 ng/mL (>30)
[2022-05-27 11:52] LABS: Calcium (PTHI) 9.9 mg/dL (8.6-10.4); PTHI 47 pg/mL (16-77)
== END 2022-05-26 13:12 | disposition home or self-care (01) ==
LOC: HO.MAMMO 13:11
PROVIDERS: Absent Provider Internal Medicine; PCP Internal Medicine; Visit Provider Internal Medicine
DX: Z12.31 Encounter for screening mammogram for malignant neoplasm of breast (principal); E89.0 Postprocedural hypothyroidism; E55.9 Vitamin D deficiency, unspecified
CPT/HCPCS: 36415; 77063; 77067; 82040; 82306; 83970; 84100; 84439; 84443

== ENCOUNTER 2022-06-13 01:17 | Emergency (ER) | payer MEDICARE, MEDICAID, SELFPAY ==
--- NOTE | 2022-06-13 | ECG_ITS ---
Test Reason : fall Blood Pressure : / mmHG Vent. Rate : 076 BPM Atrial Rate : 076 BPM P-R Int : 166 ms QRS Dur : 072 ms QT Int : 418 ms P-R-T Axes : -02 -18 -18 degrees QTc Int : 470 ms Normal sinus rhythm Minimal voltage criteria for LVH, may be normal variant ( R in aVL ) Nonspecific ST and T wave abnormality Borderline ECG When compared with ECG of 20-AUG-2021 06:57, QT has lengthened Referred By: Generic ED Physician Electronically Signed By:EV GIRON
--- NOTE | ~2022-06-13 | XR_ITS ---
EXAMINATION: XR CHEST CLINICAL INFORMATION: Status post fall COMPARISON: 10/16/2020 and 11/22/2019 TECHNIQUE: Frontal view of the chest was obtained. FINDINGS: Left basilar subsegmental atelectasis. Nodular opacity objects over the right midlung, not evident previously. No pleural effusion or pneumothorax. Normal heart size. Aorta is tortuous and atherosclerotic. No acute osseous abnormalities. XR/XR chest 1V IMPRESSION: * No acute findings. * Nodular opacity projecting over the right midlung, not evident previously. This could represent a pulmonary nodule. Recommend nonemergent CT chest.
[2022-06-13 01:38] VITALS: BP 110/76; PULSE 81; RESP 18; TEMP 36.9; O2SAT 98; BMI 27.4
[2022-06-13 02:53] LABS: MANUAL DIFF FLAG NO
[2022-06-13 02:54] LABS: Basophils Percent Auto 0.5 % (0-2); Eosinophils Percent Auto 0.2 % (0-4); Hematocrit 40.4 % (37.0-47.0); Hemoglobin 13.8 g/dl (12.0-16.0); Imm Gran Abs Auto 0.02 X10*3/uL (0.00-0.03); Imm Gran Pct Auto 0.3 % (0.0-0.4); Lymphocytes Absolute Auto 1.8 X10*3/uL (1.2-4.9); Lymphocytes Percent Auto 29.3 % (20-40); Mean Corpuscular HGB Conc 34.2 g/dl (31.0-35.0); Mean Corpuscular Hemoglobin 29.4 pg (27.0-33.0); Mean Corpuscular Volume 86.1 fL (80.0-98.0); Mean Platelet Volume 10.3 fL (9.4-12.3); Monocytes Absolute Auto 0.7 X10*3/uL (0.1-1.2); Monocytes Percent Auto 10.9 % (2-11); Neutrophils Absolute Auto 3.5 x10*3/uL (2.0-8.3); Neutrophils Percent Auto 58.8 % (45-73); Platelet Count 261 X10*3/uL (160-400); Red Blood Count 4.69 X10*6/uL (4.20-5.50); Red Cell Distribution Width 14.6 % (11.0-16.0)
[2022-06-13 03:00] LABS: COVID-19 Test Positive (Negative); IDNOW Serial# 16C4AD1C
[2022-06-13 03:10] LABS: IDNOW Serial# BCCEAD1C; Influenza A Negative (Negative); Influenza B2 Negative (Negative)
[2022-06-13 03:14] LABS: Anion Gap 12 (12-20); Blood Urea Nitrogen 12 mg/dL (9-16); Calcium 8.9 mg/dL (8.4-10.2); Carbon Dioxide 22 mmol/L (22-29); Chloride 104 mmol/L (96-108); Creatinine Clr Calc Pharmacy 67.8; Estimated Glomerular Filt Rate > 60; Glucose Random 135 mg/dL (60-115); Potassium 4.1 mmol/L (3.3-5.1); Sodium 134 mmol/L (135-145)
[2022-06-13 03:50] VITALS: BP 144/99; PULSE 65; RESP 16; TEMP 36.8; O2SAT 98
--- NOTE | 2022-06-13 03:50 | MHC.EDTECH ---
this pct assumed care of pt at this time ,vitals sign taken and warm blanket given .
--- OUTSIDE RECORDS SUMMARY | 2022-06-13 04:15 | XMS_ITS | Continuity of Care Document ---
:1955 Author Organization [facility] Address [address] [place] [address]- Care Team Providers Name Role Phone Tj Strong MD Primary Care Physician Encounter [facility] Date(s): 12/31/21 - 01/30/22 [facility] [address], [place] [address] Attending Physician: Karissa Howard Admitting Physician: Admtr, Karissa Referring Physician: Admtr, Ar8 Allergies, Adverse Reactions, Alerts No Known Medication Allergies Immunizations Given and Recorded Vaccine Date Status Refusal Reason influenza virus vaccine, inactivated 04/17/21 Recorded influenza virus vaccine, inactivated 03/11/20 Recorded influenza virus vaccine, inactivated 06/19/19 Recorded influenza virus vaccine, inactivated 04/14/18 Recorded SARS-CoV-2 (COVID-19) mRNA BNT-162b2 vac 03/18/21 Recorde d SARS-CoV-2 (COVID-19) mRNA BNT-162b2 vac 08/20/20 Recorde d SARS-CoV-2 (COVID-19) mRNA BNT-162b2 vac 07/30/20 Recorde d tetanus/diphtheria/pertussis, acel(Tdap) 10/16/20 Recorde d tetanus/diphtheria/pertussis, acel(Tdap) 11/22/12 Recorde d pneumococcal 23-valent vaccine 06/19/19 Recorded Zoster Vaccine Live 04/14/18 Recorded pneumococcal 13-valent vaccine 04/14/18 Recorded hepatitis B adult vaccine 09/11/13 Recorded hepatitis B adult vaccine 06/27/13 Recorded hepatitis B adult vaccine 02/10/13 Recorded hepatitis B adult vaccine 12/20/12 Recorded Measles/Mumps/Rubella Virus Vaccine 03/08/09 Recorded Hepatitis A Adult Vaccine 03/05/09 Recorded tetanus-diphtheria toxoids (Td) 06/14/07 Recorded Medications allopurinol 100 mg oral tablet 100 mg, 1, tablet, By Mouth, Daily, # 30 tablet, Refills 0, Maintenance, 04/23/21 11:12:00 EST, Partial fill upon patient request if the prescription is for a schedule II opioid drug. Start Date: 04/23/21 Status: OrderedAmlodipine = 10 mg, By Mouth, Daily, 0 Refills, Maintenance, 03/20/21 12:26:00 EDT, Partial fill upon patient request if the prescription is for a schedule II opioid drug. Start Date: 03/20/21 Status: Orderedaspirin 81 mg oral capsule 4 capsule = 324 mg, By Mouth, Every 4 hours, 0 Refills, Maintenance, 04/23/21 11:13:00 EST, Partial fill upon patient request if the prescription is for a schedule II opioid drug. Start Date: 04/23/21 Status: Orderedcarvedilol 12.5 mg oral tablet 12.5 mg, 1, tablet, By Mouth, 2 times a day, # 180 tablet, Refills 0, Maintenance, 04/23/21 11:12:00EST, Partial fill upon patient request if the prescription is for a schedule II opioid drug. Start Date: 04/23/21 Status: Orderedlevothyroxine 125 mcg (0.125 mg) oral tablet 1 tablet = 125 mcg, By Mouth, Daily, # 30 tablet, 2 Refills, Maintenance, 08/11/21 15:33:00 EST, Tablet, [facility], Partial fill upon patient request if the prescription is for a schedule II opioid drug., 168, cm, 08/11/21 13:13:0... Start Date: 08/11/21 Status: OrderedLisinopril = 40 mg, By Mouth, Daily, 0 Refills, Maintenance, 03/20/21 12:26:00 EDT, Partial fill upon patient request if the prescription is for a schedule II opioid drug. Start Date: 03/20/21 Status: Orderedomeprazole 20 mg oral delayed release tablet 1 tablet = 20 mg, By Mouth, Daily, 0 Refills, Maintenance, 07/28/21 9:49:00 EST, Partial fill upon patient request if the prescription is for a schedule II opioid drug. Start Date: 07/28/21 Status: OrderedoxyCODONE 5 mg oral tablet 5 mg, 1, tablet, By Mouth, Every 4 hours, PRN, # 8 tablet, Refills 0, Tot. Refills 0, Maintenance, Pain , Moderate, 01/14/22 14:55:00 EDT, Route to Pharmacy Electronically, [facility], Partial fill upon patient request if the prescriptio... Start Date: 01/14/22 Status: OrderedTylenol 8 Hour 650 mg oral tablet, extended release 2 tablet = 1,300 mg, By Mouth, Every 8 hours, PRN as needed for fever, # 50 tablet, 0 Refills, Maintenance, 01/12/22 11:03:00 EDT, ER Tablet, Partial fill upon patient request if the prescription is for a schedule II opioid drug. Start Date: 01/12/22 Status: OrderedVitamin D3 1000 intl units oral tablet 1 tablet = 25 mcg, By Mouth, Daily, 0 Refills, Maintenance, 07/28/21 9:48:00 EST, Partial fill upon patient request if the prescription is for a schedule II opioid drug. Start Date: 07/28/21 Status: Ordered Problem List Condition Effective Dates Status Health Status Informant HTN (hypertension)(Confirmed) Active Hypothyroid(Confirmed) Active Social History Social History Type Response Smoking Status Former smoker, quit more manjinder n 30 days ago entered on: 09/08/21 Sex
--- OUTSIDE RECORDS SUMMARY | 2022-06-13 04:15 | XMS_ITS | Continuity of Care Document ---
:1955 Author Organization [facility] Address [address] [place] [address]- Care Team Providers Name Role Phone Tj Strong MD Primary Care Phys[id number] Date(s): 08/11/21 - 08/12/[address] [address]- Discharge Disposition: A-D/C Home Attending Physician: Carlos Vallejo MD Admitting Physician: Carlos Vallejo MD Referring Physician: Carlos Vallejo MD Allergies, Adverse Reactions, Alerts No Known Medication Allergies Medications allopurinol 100 mg oral tablet 100 mg, 1, tablet, By Mouth, Daily, # 30 tablet, Refills 0, Maintenance, 04/23/21 11:12:00 EST, Partial fill upon patient request if the prescription is for a schedule II opioid drug. Start Date: 04/23/21 Status: OrderedAmlodipine = 5 mg, By Mouth, Daily, 0 Refills, Maintenance, [...] 2 Refills, Maintenance, 08/11/21 15:33:00 EST, Tablet, [facility], Partial fill upon patient request [...] OrderedoxyCODONE 5 mg oral tablet 5 mg, Tablet, By Mouth, Every 6 hours, PRN for Pain , Severe, Routine, 08/11/21 16:01:00 EST Start Date: 08/11/21 Stop Date: 08/12/21 Status: DiscontinuedoxyCODONE 5 mg oral tablet 5 mg, 1, tablet, By Mouth, Every 6 hours, PRN, # 12 tablet, Refills 0, Tot. Refills 0, Maintenance, Pain , Severe, 08/11/21 15:51:00 EST, Route to Pharmacy Electronically, [facility], Partial fill upon patient request if the prescription... Start Date: 08/11/21 Status: OrderedVitamin D3 1000 intl units oral tablet 1 tablet = 25 mcg, By Mouth, Daily, 0 Refills, Maintenance, 07/28/21 9:48:00 EST, Partial fill upon patient request if the prescription is for a schedule II opioid drug. Start Date: 07/28/21 Status: Ordered Procedures Procedure Date Related Diagnosis Body Site Status Total Thyroidectomy 08/11/21 Complete d Vital Signs Most recent to oldest 1 2 3 [Reference Range]: Height 168 cm 168 cm (08/11/21 12:37 PM) (07/28/21 10:21 AM) Weight 81 kg 81 kg (08/11/21 12:37 PM) (07/28/21 10:21 AM) Oxygen Saturation [94-100 %] 99 % 99 % 96 % (08/12/21 12:00 PM) (08/12/21 8:00 AM) (08/12/21 3:00 AM) Pulse Rate [55-90 bpm] 71 bpm 73 bpm 66 bpm (08/12/21 12:00 PM) (08/12/21 8:00 AM) (08/12/21 3:00 AM) Body Mass Index [18.5-24.99] 28.7 28.7 *H* *H* (08/11/21 12:37 PM) (07/28/21 10:21 AM) Blood Pressure [90-138/55-84 120/74 mm Hg 122/80 mm Hg 132 /73 mm Hg mm Hg] (08/12/21 12:00 PM) (08/12/21 8:00 AM) (08/12/21 3:00 AM) Respiratory Rate [16-30 18 br/min 18 br/min 18 br/mi n br/min] (08/12/21 12:16 PM) (08/12/21 8:00 AM) (08/12/21 5:45 AM) Temperature [96.8-100.4 DegF] 98.3 DegF 98.1 DegF 97 .3 DegF (08/12/21 12:00 PM) (08/12/21 8:00 AM) (08/12/21 3:00 AM) Liters per Minute 3 L/min 3 L/min 7 L/min (08/11/21 5:45 PM) (08/11/21 4:45 PM) (08/11/21 3:4 5 PM) Mode of Delivery (Oxygen) Room air Room air Room a ir (08/12/21 12:00 PM) (08/12/21 8:00 AM) (08/12/21 3:00 AM) Blood pressure sites Arm, right Arm, right Arm, right (08/12/21 12:00 PM) (08/12/21 8:00 AM) (08/12/21 3:00 AM) Temperature Route Oral Oral Oral (08/12/21 12:00 PM) (08/12/21 8:00 AM) (08/12/21 3:00 AM) Dry Weight 81.6 kg 81 kg (08/11/21 12:37 PM) (07/28/21 10:21 AM) Dry Weight Obtained Via Standing scale (08/11/21 12:37 PM)
--- OUTSIDE RECORDS SUMMARY | 2022-06-13 04:15 | XMS_ITS | Continuity of Care Document ---
:1955 Author Organization [facility] Address Unavailable , Care Team Providers Name Role Phone Tae LOMBARDI, Tj Primary Care Physician [place] [facility] [place] Date(s): 09/19/21 - 10/19/21 [facility] Allergies, Adverse Reactions, Alerts No Known Medication [...] 2 Refills, Maintenance, 08/11/21 15:33:00 EST, Tablet, [facility], Partial fill upon patient request [...] 08/11/21 15:51:00 EST, Route to Pharmacy Electronically, [facility], Partial fill upon patient request if the prescription... Start Date: 08/11/21 Status: OrderedVitamin D3 1000 intl units oral tablet 1 tablet = 25 mcg, By Mouth, Daily, 0 Refills, Maintenance, 07/28/21 9:48:00 EST, Partial fill upon patient request if the prescription is for a schedule II opioid drug. Start Date: 07/28/21 Status: Ordered Social History Social History Type Response Smoking Status Former smoker, quit more manjinder n 30 days ago entered on: 09/08/21 Sex
--- OUTSIDE RECORDS SUMMARY | 2022-06-13 04:15 | XMS_ITS | Continuity of Care Document ---
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, Partial fill upon patient request if the prescription... Start Date: 08/11/21 Status: OrderedVitamin D3 1000 intl units oral tablet 1 tablet = 25 mcg, By Mouth, Daily, 0 Refills, Maintenance, 07/28/21 9:48:00 EST, Partial fill upon patient request if the prescription is for a schedule II opioid drug. Start Date: 07/28/21 Status: Ordered Problem List Diagnosis Diagnosis Type Effective Dates [facility] Clinical Infor mant Status Service Noninvasive Discharge 08/27/21 follicular Diagnosis neoplasm of thyroid with papillary-like nuclear features Postop check Discharge 08/27/21 Diagnosis Vital Signs Most recent to oldest [Reference Range]: 1 Height 168 cm (08/26/21 2:07 PM) Weight 82.5 kg (08/26/21 2:07 PM) Pulse Rate [55-90 bpm] 78 bpm (08/26/21 2:07 PM) Body Mass Index [18.5-24.99] 29.23 *H* (08/26/21 2:07 PM) Blood Pressure [90-138/55-84 mm Hg] 127/84 mm Hg (08/26/21 2:07 PM) Temperature [96.8-100.4 DegF] 97.0 DegF (08/26/21 2:07 PM) Blood pressure sites Arm, left (08/26/21 2:07 PM) Temperature Route Temporal (08/26/21 2:07 PM) Weight Obtained Via Standing scale (08/26/21 2:07 PM)
--- OUTSIDE RECORDS SUMMARY | 2022-06-13 04:15 | XMS_ITS | Continuity of Care Document ---
:1955 Author Organization [facility] Address Unavailable , Care Team Providers Name Role Phone Tj Strong MD Primary [id number] Date(s): 03/18/21 - 06/19/21 [facility] Attending Physician: Yoni LOMBARDI, Carlos Referring Physician: Melony Schuster DO Allergies, Adverse Reactions, Alerts No Known Medication [...] II opioid drug. Start Date: 04/23/21 Status: OrderedLisinopril By Mouth, Daily, 0 Refills, Maintenance, 03/20/21 12:26:00 EDT, Partial fill upon patient request ifthe prescription is for a schedule II opioid drug. Start Date: 03/20/21 Status: Ordered
--- OUTSIDE RECORDS SUMMARY | 2022-06-13 04:15 | XMS_ITS | Continuity of Care Document ---
:1955 Author Organization [facility] Address [address] [place] [address]- Care Team Providers Name Role Phone Tj Strong MD Primary Care Physician Encounter [facility] [place] Date(s): 01/13/22 - 01/14/[address] [address] Discharge Disposition: A-D/C Home Attending Physician: Wicho Martinez MD Admitting Physician: Wicho Martinez MD Referring Physician: Wicho Martinez MD Allergies, Adverse Reactions, Alerts No Known [...] II opioid drug. Start Date: 03/20/21 Status: OrderedamLODIPine 10 mg oral tablet 10 mg, Tablet, By Mouth, 01/14/22 9:00:00 EDT Start Date: 01/14/22 Stop Date: 01/14/22 Status: Completedaspirin 81 mg oral capsule 4 capsule = [...] Orderedcarvedilol 12.5 mg oral tablet 12.5 mg, Tablet, By Mouth, 01/14/22 9:00:00 EDT Start Date: 01/14/22 Stop Date: 01/14/22 Status: CompletedColace sodium 100 mg oral capsule 100 mg, 1, capsule, By Mouth, 2 times a day, with plenty of water, # 20 capsule, Refills 0, Tot. Refills 0, Maintenance, 01/14/22 14:55:00 EDT, Route to Pharmacy Electronically, [facility], Partial fill upon patient request if the prescr... Start Date: 01/14/22 Status: Orderedlevothyroxine 125 mcg (0.125 mg) oral tablet 1 tablet = 125 mcg, By Mouth, Daily, # 30 tablet, 2 Refills, Maintenance, 08/11/21 15:33:00 EST, Tablet, [facility], Partial fill upon patient request [...] 01/14/22 14:55:00 EDT, Route to Pharmacy Electronically, [facility], Partial fill upon patient request if the prescriptio... Start Date: 01/14/22 Status: OrderedToradol Inj 15 mg, Injection, IV Push Slowly, 01/14/22 9:00:00 EDT, Stop date 01/14/22 9:00:00 EDT Start Date: 01/14/22 Stop Date: 01/14/22 Status: CompletedTylenol 325 mg oral tablet 650 mg, Tablet, By Mouth, 01/14/22 7:00:00 EDT Start Date: 01/14/22 Stop Date: 01/14/22 Status: CompletedTylenol 8 Hour 650 mg oral tablet, extended [...] Status Informant HTN (hypertension)(Confirmed) Active Hypothyroid(Confirmed) Active Procedures Procedure Date Related Diagnosis Body Site Status Laparoscopy, surgical, repair of Completed paraesophageal hernia, includes fundoplasty, when performed; without implantation of mesh Results Radiology Reports Exam Date Time Procedure Performing Provider Status 01/13/22 12:42 PM Chest Portable Luana Harkins; Dara (Renetta munoz) Notes:(Chest Portable) Reason For Exam: PostopRESULT: Chest Portable Chest Portable Reason: Postop; Clinical Question(s): Other: COMPARISON: None. FINDINGS: LINES AND TUBES: None. LUNGS AND PLEURA: Low lung volumes. Lungs are clear with normal vascularity. No pleural effusion. No pneumothorax. HEART, MEDIASTINUM AND AMANDO: Heart is normal in size. Normal upper mediastinal and hilar contour. BONES AND SOFT TISSUES: No acute abnormality. IMPRESSION: No acute abnormality. WSN: [id number] Ordering Physician: Tye Couch Dictated By: Carlos Manuel Galarza MD Dictated Date/Time: 01/13/22 4:36 pm Reviewed By: Carlos Manuel Galarza MD Signed By: Carlos Manuel Galarza MD Signed Date/Time: 01/13/22 4:36 pm Transcribed By: JORGE Transcribed Date/Time: 01/13/22 4:35 pm Vital Signs Most recent to oldest 1 2 3 [Reference Range]: Height 168 cm 168 cm 168 cm (01/14/22 5:25 AM) (01/14/22 12:41 AM) (01/13/22 8:44 PM) Weight 82 kg 82 kg (01/13/22 7:05 AM) (01/12/22 11:00 AM) Oxygen Saturation [94-100 94 % 95 % 93 % %] (01/14/22 11:00 AM) (01/14/22 7:00 AM) *L* (01/14/22 5:25 AM) Pulse Rate [55-90 bpm] 58 bpm 57 bpm 57 bpm (01/14/22 11:00 AM) (01/14/22 8:12 AM) (01/14/22 7:00 AM) Body Mass Index 29.05 29.05 [18.5-24.99] *H* *H* (01/13/22 7:05 AM) (01/12/22 11:00 AM) Blood Pressure 112/67 mm Hg 120/70 mm Hg 120/70 mm Hg [90-138/55-84 mm Hg] (01/14/22 11:00 AM) (01/14/22 8:12 AM) (01/14/22 8:12 AM) Respiratory Rate [16-30 17 br/min 18 br/min 18 br/mi n br/min] (01/14/22 11:00 AM) (01/14/22 9:12 AM) (01/14/22 8:43 AM) Temperature [96.8-100.4 97.8 DegF 98.4 DegF 98.6 Deg F DegF] (01/14/22 11:00 AM) (01/14/22 7:00 AM) (01/14/22 5:25 AM) Liters per Minute 3 L/min 3 L/min 3 L/min (01/14/22 7:00 AM) (01/14/22 5:25 AM) (01/14/22 12:41 AM) Mode of Delivery (Oxygen) Room air Nasal cannula Nasal cannula (01/14/22 11:00 AM) (01/14/22 7:00 AM) (01/14/22 5:25 AM) Blood pressure sites Arm, left Arm, left Arm, left (01/14/22 11:00 AM) (01/14/22 7:00 AM) (01/14/22 5:25 AM) Temperature Route Oral Oral Oral (01/14/22 11:00 AM) (01/14/22 7:00 AM) (01/14/22 5:25 AM) Dry Weight 82 kg (01/12/22 11:00 AM) Weight Obtained Via Patient/family stated (01/12/22 11:00 AM) Dry Weight Obtained Via Patient/family stated (01/12/22 11:00 AM) Social History Social History Type Response Smoking Status Former smoker, quit more manjinder n 30 days ago entered on: 09/08/21 Sex
--- OUTSIDE RECORDS SUMMARY | 2022-06-13 04:15 | XMS_ITS | Continuity of Care Document ---
:1955 Author Organization [facility] Address [address] [place] [address]- Care Team Providers Name Role Phone Tj Strong MD Primary Care Physician [place] [facility] [place] 01/29/22 [facility] [address] [place] [address]- Attending Physician: Karissa Howard Admitting Physician: Karissa Howard Referring Physician: Karissa Howard Allergies, Adverse Reactions, Alerts No Known Medication [...] 2 Refills, Maintenance, 08/11/21 15:33:00 EST, Tablet, [facility], Partial fill upon patient request if [...] 01/14/22 14:55:00 EDT, Route to Pharmacy Electronically, [facility], Partial fill upon patient [...]
--- OUTSIDE RECORDS SUMMARY | 2022-06-13 04:15 | XMS_ITS | Continuity of Care Document ---
:1955 Author Organization [address] [place] [address]- Care Team Providers Name Role Phone Tj Strong MD Primary Care Physician [place] [facility] [place] - 03/09/[address] [place] [id number] Encounter Diagnosis Constipation (Discharge Diagnosis) - 03/02/22 Fatigue (Discharge Diagnosis) - 03/02/22 Attending Physician: Wicho Martinez MD Referring Physician: Tj Strong MD Allergies, Adverse [...] 2 Refills, Maintenance, 08/11/21 15:33:00 EST, Tablet, [facility], Partial fill upon patient request if the prescription is for a schedule II opioid drug., 168, cm, 08/11/21 13:13:0... Start Date: 08/11/21 Status: OrderedLisinopril = 40 mg, By Mouth, Daily, 0 Refills, Maintenance, 03/20/21 12:26:00 EDT, Partial fill upon patient request if the prescription is for a schedule II opioid drug. Start Date: 03/20/21 Status: OrderedoxyCODONE 5 mg oral tablet 5 mg, 1, tablet, By Mouth, Every 4 hours, PRN, # 8 tablet, Refills 0, Tot. Refills 0, Maintenance, Pain , Moderate, 01/14/22 14:55:00 EDT, Route to Pharmacy Electronically, [facility], Partial fill upon patient request [...] Status Informant HTN (hypertension)(Confirmed) Active Hypothyroid(Confirmed) Active Diagnosis Diagnosis Type Effective Dates Health Status Clinical In formant Service Constipation Discharge 03/02/22 Diagnosis Fatigue Discharge 03/02/22 Diagnosis Vital Signs Most recent to oldest [Reference Range]: 1 Height 168 cm (03/02/22 4:28 PM) Weight 78 kg (03/02/22 4:28 PM) Pulse Rate [55-90 bpm] 71 bpm (03/02/22 4:28 PM) Body Mass Index [18.5-24.99] 27.64 *H* (03/02/22 4:28 PM) Blood Pressure [90-138/55-84 mm Hg] 144/85 mm Hg *H* (03/02/22 4:28 PM) Respiratory Rate [16-30 br/min] 16 br/min (03/02/22 4:28 PM) Temperature [96.8-100.4 DegF] 97 DegF (03/02/22 4:28 PM) Blood pressure sites Arm, right (03/02/22 4:28 PM) Temperature Route Temporal (03/02/22 4:28 PM) Weight Obtained Via Standing scale (03/02/22 4:28 PM) Social History Social History Type Response Smoking Status Former smoker, quit more manjinder n 30 days ago entered on: 09/08/21 Sex Care Team PersonnelName: Tae LOMBARDI, Tj Address: [address] [place] [id number]
--- OUTSIDE RECORDS SUMMARY | 2022-06-13 04:15 | XMS_ITS | Continuity of Care Document ---
:1955 Author Organization [address] [place] [address]- Care Team Providers Name Role Phone Tj Strong MD Primary Care Physician Encounter [facility] Date(s): 03/02/22 - 04/01/[address] [place], [place] [address] Attending Physician: AdmKarissa fletcher Admitting Physician: AdmtrKarissa Referring Physician: Admtr, Ar8 Allergies, Adverse Reactions, [...] 2 Refills, Maintenance, 08/11/21 15:33:00 EST, Tablet, [facility], Partial fill upon patient request [...] 01/14/22 14:55:00 EDT, Route to Pharmacy Electronically, [facility], Partial fill upon patient [...] Date: 07/28/21 Status: Ordered Problem List Condition Confirmation Course Effective Dates Status Health Stat us Informant HTN (hypertension) Confirmed Active Hypothyroid Confirmed Active Social History Social History Type Response Smoking Status Former smoker, quit more manjinder n 30 days ago entered on: 09/08/21 Sex Patient Care team information PersonnelName: Tj Strong MD Address: Address: [address], [place] [address]
--- OUTSIDE RECORDS SUMMARY | 2022-06-13 04:16 | XMS_ITS | Continuity of Care Document ---
:1955 Author Organization [facility] Address Unavailable , Care Team Providers Name Role Phone Tj Strong MD Primary Care Physician En[facility] [place] Date(s): 09/08/21 - 09/15/21 [facility] Encounter Diagnosis Paraesophageal hernia (Discharge Diagnosis) - 09/08/21 Attending Physician: Wicho Martinez MD Referring Physician: [...] 2 Refills, Maintenance, 08/11/21 15:33:00 EST, Tablet, [facility], Partial fill upon patient [...] 08/11/21 15:51:00 EST, Route to Pharmacy Electronically, [facility], Partial fill upon patient request if the prescription... Start Date: 08/11/21 Status: OrderedVitamin D3 1000 intl units oral tablet 1 tablet = 25 mcg, By Mouth, Daily, 0 Refills, Maintenance, 07/28/21 9:48:00 EST, Partial fill upon patient request if the prescription is for a schedule II opioid drug. Start Date: 07/28/21 Status: Ordered Problem List Diagnosis Diagnosis Type Effective Dates Health Clinical Infor [facility] Status Service Paraesophageal Discharge 09/08/21 hernia Diagnosis Vital Signs Most recent to oldest [Reference Range]: 1 Height 168 cm (09/08/21 12:49 PM) Weight 81.5 kg (09/08/21 12:49 PM) Pulse Rate [55-90 bpm] 72 bpm (09/08/21 12:49 PM) Body Mass Index [18.5-24.99] 28.88 *H* (09/08/21 12:49 PM) Blood Pressure [90-138/55-84 mm Hg] 112/76 mm Hg (09/08/21 12:49 PM) Respiratory Rate [16-30 br/min] 16 br/min (09/08/21 12:49 PM) Temperature [96.8-100.4 DegF] 97.3 DegF (09/08/21 12:49 PM) Blood pressure sites Arm, right (09/08/21 12:49 PM) Temperature Route Temporal (09/08/21 12:49 PM) Weight Obtained Via Standing scale (09/08/21 12:49 PM) Social History Social History Type Response Smoking Status Former smoker, quit more manjinder n 30 days ago entered on: 09/08/21 Sex
--- OUTSIDE RECORDS SUMMARY | 2022-06-13 04:16 | XMS_ITS | Continuity of Care Document ---
:1955 Author Organization [facility] Address Unavailable , Care Team Providers Name Role Phone Tj Strong MD Primary Care Physician Encounter [facility] Date(s): 01/26/22 - 02/02/22 [facility] Attending Physician: Wicho Martinez MD Referring Physician: [...] 2 Refills, Maintenance, 08/11/21 15:33:00 EST, Tablet, [facility], Partial fill upon patient request [...] 01/14/22 14:55:00 EDT, Route to Pharmacy Electronically, [facility], Partial fill upon patient [...] Status Informant HTN (hypertension)(Confirmed) Active Hypothyroid(Confirmed) Active Vital Signs Most recent to oldest [Reference Range]: 1 Height 168 cm (01/26/22 9:33 AM) Weight 79.3 kg (01/26/22 9:33 AM) Pulse Rate [55-90 bpm] 69 bpm (01/26/22 9:33 AM) Body Mass Index [18.5-24.99] 28.1 *H* (01/26/22 9:33 AM) Blood Pressure [90-138/55-84 mm Hg] 113/74 mm Hg (01/26/22 9:33 AM) Respiratory Rate [16-30 br/min] 16 br/min (01/26/22 9:33 AM) Temperature [96.8-100.4 DegF] 97.6 DegF (01/26/22 9:33 AM) Blood pressure sites Arm, left (01/26/22 9:33 AM) Temperature Route Temporal (01/26/22 9:33 AM) Weight Obtained Via Standing scale (01/26/22 9:33 AM) Social History Social History Type Response Smoking Status Former smoker, quit more manjinder n 30 days ago entered on: 09/08/21 Sex
--- OUTSIDE RECORDS SUMMARY | 2022-06-13 04:16 | XMS_ITS | Continuity of Care Document ---
:1955 Author Organization [facility] Address Unavailable , Care Team Providers Name Role Phone Tj Strong MD Primary Care Phys[id number] Date(s): 04/21/21 - 05/21/21 [facility] Allergies, Adverse Reactions, Alerts No Known Medication [...]
--- OUTSIDE RECORDS SUMMARY | 2022-06-13 04:16 | XMS_ITS | Continuity of Care Document ---
:1955 Author Organization [facility] Address Unavailable , Care Team Providers Name Role Phone Tj Strong MD Primary Care Physician [id number] Date(s): 09/22/21 - 10/22/21 [facility] Allergies, Adverse Reactions, Alerts No Known [...] Refills, Maintenance, 08/11/21 15:33:00 EST, Tablet, [facility], Partial fill upon patient [...] 08/11/21 15:51:00 EST, Route to Pharmacy Electronically, [facility], Partial fill upon patient request [...]
--- OUTSIDE RECORDS SUMMARY | 2022-06-13 04:16 | XMS_ITS | Continuity of Care Document ---
:1955 Author Organization [facility] Address [address] [place] [address]- Care Team Providers Name Role Phone Not on Staff, PCP Primary Care Physician Unavailable Encounter [facility] Date(s): 07/01/20 - 07/02/[address] [address]- Encounter Diagnosis Chest pain (Final) - 07/01/20 Chest pain (Final) - 07/02/20 Discharge Disposition: A-D/C Home Attending Physician: Monica Craft DO Admitting Physician: Monica Craft DO Referring Physician: Not on Staff, Referring MD Allergies, Adverse Reactions, Alerts Substance Reaction Severity Status NKA Active Results Radiology Reports Exam Date Time Procedure Performing Provider Status 07/01/20 6:28 PM Chest 2 Views Frontal and Lat Steven, Nelta; Au th (Verified) Notes:(Chest 2 Views Frontal and Lat) Reason For Exam: AnginaRESULT: Chest 2 Views Frontal and Lat Chest 2 Views Frontal and Lat Hx of Present Illness: Chest pain. COMPARISON: None. FINDINGS: LINES AND TUBES: None. LUNGS AND PLEURA: Clear lungs. Normal pulmonary vascularity. No pleural effusion. No pneumothorax. HEART, MEDIASTINUM AND AMANDO: Heart is normal in size. Normal upper mediastinal and hilar contour. BONES AND SOFT TISSUES: No acute abnormality. IMPRESSION: No acute abnormality. WSN: [id number] Ordering Physician: Shiv Dodson Dictated By: George Matta MD Dictated Date/Time: 07/01/20 6:31 pm Reviewed By: George Matta MD Signed By: George Matta MD Signed Date/Time: 07/01/20 6:31 pm Transcribed By: JORGE Transcribed Date/Time: 07/01/20 6:30 pm Vital Signs Most recent to oldest 1 2 3 [Reference Range]: Height 159 cm 159 cm 159 cm (07/01/20 11:51 PM) (07/01/20 10:06 PM) (07/01/20 5 :52 PM) Weight 77.2 kg 77.2 kg 77.2 kg (07/01/20 11:51 PM) (07/01/20 10:06 PM) (07/01/20 5 :52 PM) Oxygen Saturation [94-100 100 % 97 % 100 % %] (07/01/20 11:51 PM) (07/01/20 10:06 PM) (07/01/20 5 :12 PM) Pulse Rate [55-90 bpm] 72 bpm 74 bpm 89 bpm (07/01/20 11:51 PM) (07/01/20 10:06 PM) (07/01/20 5 :12 PM) Body Mass Index 30.54 30.54 30.54 [18.5-24.99] *>HHI* *>HHI* *>HHI* (07/01/20 11:51 PM) (07/01/20 10:06 PM) (07/01/20 5 :12 PM) Blood Pressure 139/81 mm Hg 144/81 mm Hg 126/86 mm Hg [90-138/55-84 mm Hg] *H* *H* (07/01/20 5: 12 PM) (07/01/20 11:51 PM) (07/01/20 10:06 PM) Respiratory Rate [16-30 14 br/min 20 br/min 16 br/mi n br/min] *L* (07/01/20 10:06 PM) (07/01/20 5:12 PM) (07/01/20 11:51 PM) Temperature [96.8-100.4 97.9 DegF 98.5 DegF 98.5 Deg F DegF] (07/01/20 11:51 PM) (07/01/20 10:06 PM) (07/01/20 5 :12 PM) Mode of Delivery (Oxygen) Room air Room air Room a ir (07/01/20 11:51 PM) (07/01/20 10:06 PM) (07/01/20 5 :12 PM) Blood pressure sites Arm, right Arm, right Arm, right (07/01/20 11:51 PM) (07/01/20 10:06 PM) (07/01/20 5 :12 PM) Temperature Route Oral Oral Oral (07/01/20 11:51 PM) (07/01/20 10:06 PM) (07/01/20 5 :12 PM) Dry Weight 77.2 kg 77.2 kg 77.2 kg (07/01/20 11:51 PM) (07/01/20 10:06 PM) (07/01/20 5 :52 PM) Weight Obtained Via Patient/family stated (07/01/20 5:12 PM) Dry Weight Obtained Via Patient/family stated (07/01/20 5:12 PM)
--- OUTSIDE RECORDS SUMMARY | 2022-06-13 04:16 | XMS_ITS | Continuity of Care Document ---
:1955 Author Organization [facility] Address Unavailable , Care Team Providers Name Role Phone Tj Strong MD Primary Care Physician [facility] [id number] Date(s): 05/19/21 - 05/26/21 [facility] Encounter Diagnosis Paraesophageal hernia (Discharge Diagnosis) - 05/19/21 GERD (gastroesophageal reflux disease) (Discharge Diagnosis) - 05/19/21 Gastric ulcer (Discharge Diagnosis) - 05/19/21 Attending Physician: Wicho Martinez MD Referring Physician: [...] opioid drug. Start Date: 03/20/21 Status: Ordered Problem List Diagnosis Diagnosis Type Effective Dates Health Clinical Infor [facility] Status Service Paraesophageal Discharge 05/19/21 hernia Diagnosis GERD Discharge 05/19/21 (gastroesophageal Diagnosis reflux disease) Gastric ulcer Discharge 05/19/21 Diagnosis Vital Signs Most recent to oldest [Reference Range]: 1 Height 167 cm (05/19/21 8:44 AM) Weight 81.3 kg (05/19/21 8:44 AM) Pulse Rate [55-90 bpm] 82 bpm (05/19/21 8:44 AM) Body Mass Index [18.5-24.99] 29.15 *H* (05/19/21 8:44 AM) Blood Pressure [90-138/55-84 mm Hg] 136/95 mm Hg (05/19/21 8:44 AM) Respiratory Rate [16-30 br/min] 16 br/min (05/19/21 8:44 AM) Temperature [96.8-100.4 DegF] 97.9 DegF (05/19/21 8:44 AM) Blood pressure sites Arm, right (05/19/21 8:44 AM) Temperature Route Temporal (05/19/21 8:44 AM) Weight Obtained Via Standing scale (05/19/21 8:44 AM)
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
--- OUTSIDE RECORDS SUMMARY | 2022-06-13 04:16 | XMS_ITS | Continuity of Care Document ---
:1955 Author Organization [facility] Address Unavailable , Care Team Providers Name Role Phone Tj Strong MD Primary [id number] Date(s): 03/20/21 - 03/27/21 [facility] Attending Physician: Yoni LOMBARDI, Carlos Referring Physician: Melony Schuster DO Allergies, Adverse Reactions, Alerts No Known Medication Allergies Medications Amlodipine By Mouth, Daily, 0 Refills, Maintenance, 03/20/21 12:26:00 EDT, Partial fill upon patient request ifthe prescription is for a schedule II opioid drug. Start Date: 03/20/21 Status: OrderedLisinopril By Mouth, Daily, 0 Refills, Maintenance, 03/20/21 12:26:00 EDT, Partial fill upon patient request ifthe prescription is for a schedule II opioid drug. Start Date: 03/20/21 Status: Ordered Vital Signs Most recent to oldest [Reference Range]: 1 Height 168 cm (03/20/21 12:22 PM) Weight 81.1 kg (03/20/21 12:22 PM) Pulse Rate [55-90 bpm] 73 bpm (03/20/21 12:22 PM) Body Mass Index [18.5-24.99] 28.73 *H* (03/20/21 12:22 PM) Blood Pressure [90-138/55-84 mm Hg] 133/88 mm Hg (03/20/21 12:22 PM) Respiratory Rate [16-30 br/min] 20 br/min (03/20/21 12:22 PM) Temperature [96.8-100.4 DegF] 97.1 DegF (03/20/21 12:22 PM) Blood pressure sites Arm, left (03/20/21 12:22 PM) Temperature Route Temporal (03/20/21 12:22 PM) Weight Obtained Via Standing scale (03/20/21 12:22 PM)
--- NOTE | 2022-06-13 05:04 | ED_ITS ---
HPI - General Adult General Chief complaint: Weakness Stated complaint: fall, covid + Time Seen by Provider: 06/13/22 05:04 Source: patient Mode of arrival: ambulatory Limitations: no limitations History of Present Illness HPI narrative: Patient feeling weak for last 3 -4 days did a COVID test yesterday at home which was positive patient is not eating much or drinking much no shortness of breath no significant cough today patient felt lightheaded lost her balance and fell down on the right breast complaining of pain in the right breast area with no ecchymosis Related Data Home Medications Medication Instructions Recorded Confirmed aspirin 81 mg tablet,delayed 81 mg PO BEDTIME 05/15/20 02/23/22 release calcium carbonate 500 mg-vitamin 1 tab PO BID 05/15/20 02/23/22 D3 10 mcg (400 unit) chewable tablet carvedilol 12.5 mg tablet 12.5 mg PO BID 05/15/20 02/23/22 lisinopril 40 mg tablet 40 mg PO DAILY 05/15/20 02/23/22 peg [id number] 1 1 drp ophthalmic (eye) TID 05/15/20 02/23/22 %-0.2 %-0.2 % eye drops white petrolatum-mineral oil 83 ophthalmic (eye) BEDTIME 05/15/20 02/23/22 %-15 % eye ointment amlodipine 5 mg tablet 5 mg PO DAILY 02/23/22 02/23/22 Previous Rx's Medication Instructions Recorded acetaminophen 650 mg 650 mg PO Q8H PRN pain #90 tabs 01/06/22 tablet,extended release (Tylenol Arthritis Pain) cholecalciferol (vitamin D3) 50 50 mcg PO DAILY 30 days #30 caps 01/08/22 mcg (2,000 unit) capsule allopurinol 100 mg tablet 100 mg PO QAM #30 tabs 01/21/22 levothyroxine 88 mcg tablet 88 mcg PO DAILY 30 days #30 tabs 05/28/22 tramadol 50 mg tablet 50 mg PO Q6H PRN pain #20 tabs 06/13/22 Allergies Allergy/AdvReac Type Severity Reaction Status Date / Time No Known Allergies Allergy Verified 02/23/22 12:40 Review of Systems Review of Systems: Yes all other systems are reviewed and are negative [facility] Past Medical History Medical History Essential hypertension Gastritis Hiatal hernia Hypothyroidism Osteopenia Osteoporosis Postoperative hypothyroidism Thyroid nodule Vitamin D deficiency Surgical History History of delivery History of endoscopy History of partial hysterectomy History of throat surgery Hx of thyroidectomy Hx of tonsillectomy Status post incision and drainage Status post removal of thyroid nodule Family History Family History Sister History of breast cancer Father Automobile collision Mother Heart attack Social History Social History Alcohol intake: never Patient Tobacco Use Status: Former Tobacco user Quit Date: 1997 Tobacco use type: Cigarette Cigarettes Per Day: 5 Years Smoked: 10 Advance Directives: No Advance Directives Information Provided: Yes Current occupational status: employed 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 Oriented X3. No acute distress. Eyes: PERRLA, No Nystagmus ENT: Pharynx normal. Oral Mucosa moist Neck: Normal inspection. Neck supple. CVS: Normal heart rate and rhythm. Pulses normal. Respiratory: No respiratory distress. Right chest wall tenderness Equal air entry bilateral, no wheezing/rales/rhonchi Abdomen: Soft and nontender. Bowel sounds are present, no mass palpable, no CVA tenderness Skin: Skin warm and dry. Normal skin color. Normal skin turgor. Extremities: No lower extremity edema. No calf tenderness Neuro: Oriented X 3. No motor deficit. Medications Administered Discontinued Medications Generic Name Dose Route Start Last Admin Trade Name Freq PRN Reason Stop Dose Admin Oxycodone HCl 10 mg 06/13/22 05:11 06/13/22 05:29 Oxycodone Hcl Immed Release 5 Mg Tablet PO 06/13/22 05:12 10 mg ONCE ONE Administration Medical Decision Making Medical Decision Making [facility] Narrative: Patient was COVID positive chest x-ray negative her symptoms are likely from poor oral intake. Will give normal saline, patient is saturating more than 98% patient ambulated to the bathroom Lab Data [facility] Lab Attestation statement: I reviewed the patient's lab results. Result Diagrams: 06/13/22 02:36 06/13/22 02:36 Labs: Lab Results 06/13/22 06/13/22 06/13/22 Range/Units 02:36 02:36 02:36 WBC 6.0 (4.8-10.8) X10*3/uL RBC 4.69 (4.20-5.50) X10*6/uL Hgb 13.8 (12.0-16.0) g/dl Hct 40.4 (37.0-47.0) % MCV 86.1 (80.0-98.0) fL MCH 29.4 (27.0-33.0) pg MCHC 34.2 (31.0-35.0) g/dl RDW 14.6 (11.0-16.0) % Plt Count 261 (160-400) X10*3/uL MPV 10.3 (9.4-12.3) fL Immature Gran % (Auto) 0.3 (0.0-0.4) % Neut % (Auto) 58.8 (45-73) % Lymph % (Auto) 29.3 (20-40) % [place] % (Auto) 10.9 (2-11) % Eos % (Auto) 0.2 (0-4) % Baso % (Auto) 0.5 (0-2) % Lymph # (Auto) 1.8 (1.2-4.9) X10*3/uL [place] # (Auto) 0.7 (0.1-1.2) X10*3/uL Eos # (Auto) 0.0 (0.0-0.4) X10*3/uL Baso # (Auto) 0.0 (0.0-0.2) X10*3/uL Abs Immat Gran (auto) 0.02 (0.00-0.03) X10*3/uL Absolute Neuts (auto) 3.5 (2.0-8.3) x10*3/uL Absolute Nucleated RBC 0.000 (0.0-0.012) X10*3/uL Nucleated RBC % (auto) 0.0 (0.0-0.2) /100WBC Sodium (135-145) mmol/L Potassium (3.3-5.1) mmol/L Chloride (96-108) mmol/L Carbon Dioxide (22-29) mmol/L Anion Gap (12-20) BUN (9-16) mg/dL Creatinine (0.5-1.4) mg/dL Estim Creat Clear Calc Estimated GFR Random Glucose (60-115) mg/dL Calcium (8.4-10.2) mg/dL COVID-19 (REY) Positive A (Negative) COVID-19 Clin Com See Note Influenza Type A (ANDRES) Negative (Negative) Influenza Type B (ANDRES) Negative (Negative) Influenza A & B Note See Note 06/13/22 Range/Units 02:36 WBC (4.8-10.8) X10*3/uL RBC (4.20-5.50) X10*6/uL Hgb (12.0-16.0) g/dl Hct (37.0-47.0) % MCV (80.0-98.0) fL MCH (27.0-33.0) pg MCHC (31.0-35.0) g/dl RDW (11.0-16.0) % Plt Count (160-400) X10*3/uL MPV (9.4-12.3) fL Immature Gran % (Auto) (0.0-0.4) % Neut % (Auto) (45-73) % Lymph % (Auto) (20-40) % [place] % (Auto) (2-11) % Eos % (Auto) (0-4) % Baso % (Auto) (0-2) % Lymph # (Auto) (1.2-4.9) X10*3/uL [place] # (Auto) (0.1-1.2) X10*3/uL Eos # (Auto) (0.0-0.4) X10*3/uL Baso # (Auto) (0.0-0.2) X10*3/uL Abs Immat Gran (auto) (0.00-0.03) X10*3/uL Absolute Neuts (auto) (2.0-8.3) x10*3/uL Absolute Nucleated RBC (0.0-0.012) X10*3/uL Nucleated RBC % (auto) (0.0-0.2) /100WBC Sodium 134 L (135-145) mmol/L Potassium 4.1 (3.3-5.1) mmol/L Chloride 104 (96-108) mmol/L Carbon Dioxide 22 (22-29) mmol/L Anion Gap 12 (12-20) BUN 12 (9-16) mg/dL Creatinine 0.82 (0.5-1.4) mg/dL Estim Creat Clear Calc 67.8 Estimated GFR > 60 Random Glucose 135 H (60-115) mg/dL Calcium 8.9 D (8.4-10.2) mg/dL COVID-19 (REY) (Negative) COVID-19 Clin Com Influenza Type A (ANDRES) (Negative) Influenza Type B (ANDRES) (Negative) Influenza A & B Note Discharge Plan Discharge Clinical Impression: COVID-19 Patient Disposition: Home, Self-Care Instructions: Contusion in Adults (ED), COVID-19 (Coronavirus Disease 2019) (ED) Additional Instructions: Drink plenty of fluids Pain medication as prescribed Report to the ER if increased shortness of breath Follow with PCP Bealbaro mucho l?quido [facility] para el dolor seg?n lo prescrito Informe a la noam de emergencias si aumenta la dificultad para respirar Seguir con PCP Prescriptions: New tramadol 50 mg tablet 50 mg PO Q6H PRN (Reason: pain) Qty: 20 0RF No Action cholecalciferol (vitamin D3) 50 mcg (2,000 unit) capsule 50 mcg PO DAILY 30 Days Qty: 30 11RF allopurinol 100 mg tablet 100 mg PO QAM Qty: 30 8RF levothyroxine 88 mcg tablet 88 mcg PO DAILY 30 Days Qty: 30 3RF calcium carbonate-vitamin D3 500 mg(1,250mg) -400 unit tablet,chewable 1 tab PO BID carvedilol 12.5 mg tablet 12.5 mg PO BID lisinopril 40 mg tablet 40 mg PO DAILY aspirin 81 mg tablet,delayed release (DR/EC) 81 mg PO BEDTIME Artificial Tears(iz-dnhx-hisd) 1-0.2-0.2 % drops 1 drp ophthalmic (eye) TID Artificial Tears (hemant/min) 83-15 % ointment ophthalmic (eye) BEDTIME acetaminophen [Tylenol Arthritis Pain] 650 mg tablet extended release 650 mg PO Q8H PRN (Reason: pain) Qty: 90 3RF amlodipine 5 mg tablet 5 mg PO DAILY Print Language: Chinese
[2022-06-13] MEDS: oxyCODONE HCl Immed Release 5 MG TABLET 10 MG PO (05:29)
[2022-06-13 06:00] VITALS: BP 137/95; PULSE 69; RESP 16; TEMP 36.7; O2SAT 97
== END 2022-06-13 07:02 | disposition home or self-care (01) ==
PROVIDERS: Emergency Provider Internal Medicine; PCP Internal Medicine Geriatric Medicine
DX: U07.1 COVID-19 (principal); I10 Essential (primary) hypertension; Z79.899 Other long term (current) drug therapy
CPT/HCPCS: 36415; 71045; 80048; 85025; 87502; 87635; 93005; 99283; 99284

== ENCOUNTER 2022-07-06 08:29 | Outpatient (REF) | payer MEDICARE, MEDICAID, SELFPAY | END 2022-07-06 08:30 | disposition home or self-care (01) | LOC: HO.LAB 08:29 | PROVIDERS: PCP Internal Medicine Geriatric Medicine; Visit Provider Internal Medicine | DX: E89.0 Postprocedural hypothyroidism (principal); Z79.899 Other long term (current) drug therapy | CPT/HCPCS: 36415; 84439; 84443; 99212 ==

== ENCOUNTER 2022-08-03 07:57 | Outpatient (REF) | payer MEDICARE, MEDICAID, SELFPAY ==
[2022-08-03 08:07] LABS: MANUAL DIFF FLAG NO
[2022-08-03 08:25] LABS: Basophils Absolute Auto 0.1 X10*3/uL (0.0-0.2); Eosinophils Absolute Auto 0.3 X10*3/uL (0.0-0.4); Eosinophils Percent Auto 3.8 % (0-4); Hematocrit 40.7 % (37.0-47.0); Hemoglobin 13.7 g/dl (12.0-16.0); Imm Gran Abs Auto 0.01 X10*3/uL (0.00-0.03); Imm Gran Pct Auto 0.1 % (0.0-0.4); Lymphocytes Absolute Auto 2.4 X10*3/uL (1.2-4.9); Lymphocytes Percent Auto 34.7 % (20-40); Mean Corpuscular HGB Conc 33.7 g/dl (31.0-35.0); Mean Corpuscular Hemoglobin 30.3 pg (27.0-33.0); Mean Platelet Volume 10.6 fL (9.4-12.3); Monocytes Absolute Auto 0.8 X10*3/uL (0.1-1.2); Monocytes Percent Auto 11.8 % (2-11); Neutrophils Absolute Auto 3.3 x10*3/uL (2.0-8.3); Neutrophils Percent Auto 48.6 % (45-73); Platelet Count 265 X10*3/uL (160-400); Red Blood Count 4.52 X10*6/uL (4.20-5.50); Red Cell Distribution Width 14.6 % (11.0-16.0); White Blood Count 6.9 X10*3/uL (4.8-10.8)
[2022-08-03 08:55] LABS: Alanine Aminotransferase 19 U/L (0-31); Albumin Level 3.8 g/dL (3.5-5.0); Alkaline Phosphatase 91 U/L (39-117); Anion Gap 13 (12-20); Aspartate Amino Transferase 18 U/L (5-31); Bilirubin Total 0.6 mg/dL (0.0-1.0); Blood Urea Nitrogen 14 mg/dL (9-16); Calcium 9.3 mg/dL (8.4-10.2); Carbon Dioxide 25 mmol/L (22-29); Chloride 106 mmol/L (96-108); Cholesterol 165 mg/dL; Estimated Glomerular Filt Rate > 60; Glucose Random 86 mg/dL (60-115); HDL Cholesterol 37 mg/dL; LDL Cholesterol Calculated 109 mg/dl; Potassium 4.4 mmol/L (3.3-5.1); Sodium 140 mmol/L (135-145); Total Protein 6.6 g/dL (6.5-8.0); Triglycerides 99 mg/dL; Uric Acid 5.2 mg/dL (2.4-5.7)
[2022-08-03 09:11] LABS: Thyroid Stimulating Hormone 0.69 uIU/mL (0.32-4.0)
== END 2022-08-03 07:58 | disposition home or self-care (01) ==
LOC: HO.LAB 07:57
PROVIDERS: PCP Internal Medicine; Visit Provider Internal Medicine
DX: E89.0 Postprocedural hypothyroidism (principal); F32.2 Major depressive disorder, single episode, severe without psychotic features; I10 Essential (primary) hypertension; M10.9 Gout, unspecified
CPT/HCPCS: 36415; 80053; 80061; 84443; 84550; 85025

== ENCOUNTER 2022-08-10 11:55 | Outpatient (REF) | payer MEDICARE, MEDICAID, SELFPAY ==
--- NOTE | ~2022-08-10 | XR_ITS ---
EXAMINATION: XR HIP, RIGHT CLINICAL INFORMATION: Osteoarthritis. COMPARISON: None TECHNIQUE: AP and frog-leg lateral views of the right hip. FINDINGS: Bony alignment and mineralization are normal. No fracture or dislocation is seen. Alignment is anatomic. Hip joint space is maintained. The right sacroiliac joint and the pubic symphysis. There are calcified buttock granulomas noted. XR/XR hip RT min 2V IMPRESSION: Unremarkable right hip. EXAMINATION: XR KNEE, RIGHT CLINICAL INFORMATION: Osteoarthritis. COMPARISON: None TECHNIQUE: AP, lateral, tunnel, and sunrise views of the right knee. FINDINGS: Bony alignment and mineralization are normal. The lateral joint space is well-maintained. There is mild asymmetric narrowing of the medial joint space compartment, with peripheral osteophyte formation. There is moderate to marked narrowing of the patellofemoral compartment, with peripheral osteophyte formation. No fracture, dislocation or significant joint effusion is seen. There is no foreign body. IMPRESSION: 1. There is moderately severe osteoarthritic change of the right patellofemoral compartment, and mild narrowing is seen of the medial joint space compartment of the right knee. 2. No fracture, dislocation or joint effusion is seen.
--- NOTE | ~2022-08-10 | XR_ITS ---
EXAMINATION: XR HIP, RIGHT CLINICAL INFORMATION: Osteoarthritis. COMPARISON: None TECHNIQUE: AP and frog-leg lateral views of the right hip. FINDINGS: Bony alignment and mineralization are normal. No fracture or dislocation is seen. Alignment is anatomic. Hip joint space is maintained. The right sacroiliac joint and the pubic symphysis. There are calcified buttock granulomas noted. XR/XR knee RT 4V IMPRESSION: Unremarkable right hip. EXAMINATION: XR KNEE, RIGHT CLINICAL INFORMATION: Osteoarthritis. COMPARISON: None TECHNIQUE: AP, lateral, tunnel, and sunrise views of the right knee. FINDINGS: Bony alignment and mineralization are normal. The lateral joint space is well-maintained. There is mild asymmetric narrowing of the medial joint space compartment, with peripheral osteophyte formation. There is moderate to marked narrowing of the patellofemoral compartment, with peripheral osteophyte formation. No fracture, dislocation or significant joint effusion is seen. There is no foreign body. IMPRESSION: 1. There is moderately severe osteoarthritic change of the right patellofemoral compartment, and mild narrowing is seen of the medial joint space compartment of the right knee. 2. No fracture, dislocation or joint effusion is seen.
== END 2022-08-10 11:56 | disposition home or self-care (01) ==
LOC: HO.XRAY 11:55
PROVIDERS: PCP Internal Medicine; Visit Provider Internal Medicine
DX: M17.11 Unilateral primary osteoarthritis, right knee (principal); M16.11 Unilateral primary osteoarthritis, right hip
CPT/HCPCS: 73502; 73564

== ENCOUNTER → 2022-08-13 10:36 | Outpatient (BNVA) | payer MEDICARE, MEDICAID, SELFPAY | PROVIDERS: PCP Internal Medicine; Visit Provider Surgery | DX: Z12.11 Encounter for screening for malignant neoplasm of colon (principal) | CPT/HCPCS: 99202 ==

== ENCOUNTER → 2022-09-14 10:56 | Outpatient (BNVA) | payer MEDICARE, MEDICAID, SELFPAY | PROVIDERS: PCP Internal Medicine; Visit Provider Physician Assistant | DX: M17.11 Unilateral primary osteoarthritis, right knee (principal); M17.12 Unilateral primary osteoarthritis, left knee | CPT/HCPCS: 20610; 99212; J1040 ==

== ENCOUNTER 2022-09-25 05:50 | Day surgery (SDC) | payer MEDICARE, MEDICAID, SELFPAY ==
[2022-09-22 14:44] VITALS: BMI 26.4
--- NOTE | 2022-09-24 11:43 | P.CONAN_ITS ---
Documented by User: Zuri Thompson NP 09/24/22 11:44 HPI - Anesthesia Eval Consult details Narrative: 67yo F for Colonoscopy PMFSH Active Problems Active Problems: All Active Problems (Updated 09/22/22 @ 14:04 by Debby Pinto, RN) Abdominal wall abscess (Acute) Folliculitis (Acute) Gout (Acute) Primary osteoarthritis involving multiple joints (Acute) Dizziness (Acute) Bilateral primary osteoarthritis of knee (Acute) Hx MRSA infection (Acute) GERD (gastroesophageal reflux disease) (Acute) Constipation (Acute) COVID-19 (Acute) Osteoarthritis of right knee (Acute) Osteoarthritis of left knee (Acute) Colon cancer screening (Acute) Postoperative hypothyroidism (Acute) Hypothyroidism (Acute) Essential hypertension (Acute) Vitamin D deficiency (Acute) Thyroid nodule (Acute) Past Medical History Medical History (Updated 09/22/22 @ 14:04 by Debby Pinto, RN) Colon cancer screening Essential hypertension Gastritis GERD (gastroesophageal reflux disease) Hiatal hernia Hypothyroidism Osteopenia Osteoporosis Postoperative hypothyroidism Thyroid nodule Vitamin D deficiency Family History Family History Sister History of breast cancer Father Automobile collision Mother Heart attack Surgical History Surgical History (Updated 09/22/22 @ 14:04 by Debby Pinto RN) History of delivery History of endoscopy History of partial hysterectomy History of throat surgery Hx of colonoscopy Hx of esophageal hernia repair Hx of thyroidectomy Hx of tonsillectomy Status post incision and drainage Status post removal of thyroid nodule Social History Social History Alcohol intake: never Patient Tobacco Use Status: Former Tobacco user Quit Date: 1997 Tobacco use type: Cigarette Cigarettes Per Day: 5 Years Smoked: 10 Current occupational status: employed 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 Meds Allergies Allergy/AdvReac Type Severity Reaction Status Date / Time No Known Allergies Allergy Verified 09/14/22 11:25 Home Medications Medication Instructions Recorded Confirmed Last Taken Type aspirin 81 mg tablet,delayed 81 mg PO BEDTIME 05/15/20 09/22/22 Unknown History release calcium carbonate 500 mg-vitamin 1 tab PO BID 05/15/20 09/22/22 Unknown History D3 10 mcg (400 unit) chewable tablet carvedilol 12.5 mg tablet 12.5 mg PO BID 05/15/20 09/22/22 Unknown History lisinopril 40 mg tablet 40 mg PO DAILY 05/15/20 09/22/22 Unknown History peg [id number] 1 1 drp ophthalmic (eye) TID 05/15/20 08/13/22 Unknown History %-0.2 %-0.2 % eye drops white petrolatum-mineral oil 83 ophthalmic (eye) BEDTIME 05/15/20 08/13/22 Unknown History %-15 % eye ointment amlodipine 5 mg tablet 5 mg PO DAILY 02/23/22 09/22/22 Unknown History Exam Exam Date and Time: September 24, 2022 1143 Height,Weight and Vital Signs: Height 5 ft 6 in Weight 74.389 kg Pertinent Lab Results Pertinent Lab Results: Laboratory Tests 08/03/22 08/03/22 08:06 08:06 WBC 6.9 Hgb 13.7 Hct 40.7 Plt Count 265 Sodium 140 Potassium 4.4 Chloride 106 Carbon Dioxide 25 BUN 14 Creatinine 0.75 Narrative Narrative: EKG 05/2022 Vent. Rate : 076 BPM ? ? Atrial Rate : 076 BPM ?? P-R Int : 166 ms? QRS Dur : 072 ms ? ? QT Int : 418 ms ? ? ? P-R-T Axes : -02 -18 -18 degrees ?? QTc Int : 470 ms ? Normal sinus rhythm Minimal voltage criteria for LVH, may be normal variant ( R in aVL ) Nonspecific ST and T wave abnormality Borderline ECG When compared with ECG of 20-AUG-2021 06:57, QT has lengthened Assessment and Plan Assessment Anesthesia Assessment: Chart Reviewed Documented by User: Paul Garcia MD 09/25/22 05:51 [facility] Past Medical History Medical History (Updated 09/22/22 @ 14:04 by Debby Pinto RN) Colon cancer screening Essential hypertension Gastritis GERD (gastroesophageal reflux disease) Hiatal hernia Hypothyroidism Osteopenia Osteoporosis Postoperative hypothyroidism Thyroid nodule Vitamin D deficiency Family History Family History Sister History of breast cancer Father Automobile collision Mother Heart attack Family history of problems with anesthesia: No Surgical History Surgical History (Updated 09/22/22 @ 14:04 by Debby Pinto RN) History of delivery History of endoscopy History of partial hysterectomy History of throat surgery Hx of colonoscopy Hx of esophageal hernia repair Hx of thyroidectomy Hx of tonsillectomy Status post incision and drainage Status post removal of thyroid nodule History of Problems with Anesthesia: No Social History Social History Alcohol intake: never Patient Tobacco Use Status: Former Tobacco user Quit Date: 1997 Tobacco use type: Cigarette Cigarettes Per Day: 5 Years Smoked: 10 Current occupational status: employed 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 Meds Allergies Allergy/AdvReac Type Severity Reaction Status Date / Time No Known Allergies Allergy Verified 09/14/22 11:25 Home Medications Medication Instructions Recorded Confirmed Last Taken Type aspirin 81 mg tablet,delayed 81 mg PO BEDTIME 05/15/20 09/22/22 Unknown History release calcium carbonate 500 mg-vitamin 1 tab PO BID 05/15/20 09/22/22 Unknown History D3 10 mcg (400 unit) chewable tablet carvedilol 12.5 mg tablet 12.5 mg PO BID 05/15/20 09/22/22 Unknown History lisinopril 40 mg tablet 40 mg PO DAILY 05/15/20 09/22/22 Unknown History peg [id number] 1 1 drp ophthalmic (eye) TID 05/15/20 08/13/22 Unknown History %-0.2 %-0.2 % eye drops white petrolatum-mineral oil 83 ophthalmic (eye) BEDTIME 05/15/20 08/13/22 Unknown History %-15 % eye ointment amlodipine 5 mg tablet 5 mg PO DAILY 02/23/22 09/22/22 Unknown History Exam Airway Mallampati Class: II TM Dist: >3cm Neck ROM: Limited Heart: rrr Lungs: cta Assessment and Plan Assessment Anesthesia Assessment: Anesthesia Plan Discussed Final Anesthetic Review Family History of Problems with Anesthesia: No History of Problems with Anesthesia: No NPO: Yes ASA Class: III Final Preanesthetic Review: No Changes in Pt Med Stat, Meds/Allgs Chart Reviewed, Consent Obtained/Reviewed and Anes Risks/Benef Reviewed Patient Risk: Intermediate Procedure Risk: Low Anesthetic Plan Anesthetic Plan: MAC: Disposition: Standard PACU
[2022-09-25 06:24] VITALS: BP 170/112; PULSE 83; RESP 16; TEMP 36.6; O2SAT 98
[2022-09-25 06:31] VITALS: BMI 26.1
[2022-09-25] MEDS: Lactated Ringers 1,000 ML 100 ML IVCONT (06:45)
[2022-09-25 07:00] VITALS: BP 147/102
--- NOTE | 2022-09-25 07:39 | P.HPSUR_ITS ---
Pre-Procedural Eval Section A Date of Service: 09/25/22 Section B Chief Complaint: screening Details of Present Illness: for colon ca screen Relevant Family History (Specify if Yes): No Relevant Social History: None Present Medications: see Short Stay Collaborative assessment Medical History: Significant History (gout, GERD, HTN) History of Previous Operations: Relevant previous surgery/procedure and date(s) Allergies: Allergies Allergy/AdvReac Type Severity Reaction Status Date / Time No Known Allergies Allergy Verified 09/25/22 06:39 Review of Systems Sugical H&P ROS: Negative: Constitution, Cardiovascular, Respiratory, Neuro logical, Psychiatric, Hem-Onc, Allergic/Immunologic, Gastrointestinal, Genitourinary, Musculoskeletal, Integumentary, Endocrine and Eyes/Ears/Nose/Throat Exam Surgical H&P Exam: Normal: HEENT, Normal: Heart, Normal: Lungs, Normal: Extremities, Normal: Abdomen, Normal: Skin and Normal: Neurological Plan Diagnosis/Plan: Unchanged I have reviewed the history and physical and performed a pertinent physical examination on my patient. No changes have occurred unless specified. Time Spent With Patient Time: Total time managing care of this patient today ____ minutes.
--- NOTE | 2022-09-25 08:03 | W.PM.OPN ---
Operative Note Operative Note Date of Service: 09/25/22 Narrative: Preop diagnosis: Colon cancer screening Postop diagnosis: Normal colonoscopy findings Procedure: Colonoscopy Surgeon: Alfonso Flanagan MD The patient is a 67-year-old female referred for a colon cancer screening. She understood the technique of colonoscopy and was aware of the risks, benefits, and alternatives. She was brought to the operating room and placed in left lateral decubitus position under monitored anesthesia care. A surgical time-out was done. A full digital rectal exam was done and this did not reveal any significant anal lesions. The tip of the Olympus colonoscope was gently introduced through the anal orifice advanced with insufflation all the way to the cecum. The cecum was intubated. The cecum was identified by visualization of the ileocecal valve as well as the appendiceal orifice. The cecal mucosa was unremarkable. The scope was gradually withdrawn with careful examination of the entire colonic mucosa being done with scope withdrawal. The patient had adequate bowel prep so it was unlikely that any lesion may have been missed. The rectum was reached and there were no lesions seen. The anal canal was unremarkable. The scope was then withdrawn completely with desufflation. The patient tolerated Theprocedure well. There were no immediate complications. She seems to be at average risk for colon cancer. Her next colonoscopy for screening may be in the next [10] years.
[2022-09-25 08:17] VITALS: BP 115/77; PULSE 65; RESP 16; TEMP 36.1; O2SAT 100
[2022-09-25 08:24] VITALS: BP 107/75; PULSE 66; RESP 18; O2SAT 97
[2022-09-25 08:37] VITALS: BP 114/77; PULSE 67; RESP 18; TEMP 36.4; O2SAT 98
== END 2022-09-25 09:00 | disposition home or self-care (01) ==
PROVIDERS: PCP Internal Medicine; Visit Provider Surgery
PROC: 0DJD8ZZ Inspection of Lower Intestinal Tract, Via Natural or Artificial Opening Endoscopic (ICD-10-PCS; CPT 45378; principal; 2022-09-25 07:30)
DX: Z12.11 Encounter for screening for malignant neoplasm of colon (principal); I10 Essential (primary) hypertension; K21.9 Gastro-esophageal reflux disease without esophagitis; M10.9 Gout, unspecified; M81.0 Age-related osteoporosis without current pathological fracture; K59.00 Constipation, unspecified; E89.0 Postprocedural hypothyroidism; E55.9 Vitamin D deficiency, unspecified; Z80.3 Family history of malignant neoplasm of breast; Z79.82 Long term (current) use of aspirin; Z79.899 Other long term (current) drug therapy; Z87.891 Personal history of nicotine dependence
CPT/HCPCS: G0121

== ENCOUNTER 2023-02-01 13:18 | Outpatient (REF) | payer MEDICARE, MEDICAID, SELFPAY ==
[2023-02-01 14:41] LABS: Alanine Aminotransferase 21 U/L (0-31); Alkaline Phosphatase 82 U/L (39-117); Anion Gap 11 (12-20); Aspartate Amino Transferase 22 U/L (5-31); Bilirubin Total 0.5 mg/dL (0.0-1.0); Blood Urea Nitrogen 14 mg/dL (9-16); Calcium 10.1 mg/dL (8.4-10.2); Carbon Dioxide 26 mmol/L (22-29); Chloride 108 mmol/L (96-108); Estimated Glomerular Filt Rate > 60; Glucose Random 106 mg/dL (60-115); Potassium 4.2 mmol/L (3.3-5.1); Sodium 141 mmol/L (135-145); Total Protein 7.3 g/dL (6.5-8.0)
[2023-02-01 14:59] LABS: Thyroid Stimulating Hormone 0.29 uIU/mL (0.32-4.0)
== END 2023-02-01 13:19 | disposition home or self-care (01) ==
LOC: HO.LAB 13:18
PROVIDERS: PCP Internal Medicine; Visit Provider Internal Medicine
DX: E89.0 Postprocedural hypothyroidism (principal); F32.2 Major depressive disorder, single episode, severe without psychotic features; I10 Essential (primary) hypertension; M25.562 Pain in left knee
CPT/HCPCS: 36415; 80053; 84443

== ENCOUNTER 2023-02-24 12:25 | Outpatient (AMB) | payer MEDICARE, MEDICAID, SELFPAY ==
[2023-02-24 12:36] VITALS: BP 120/72; PULSE 55; BMI 12.4
--- NOTE | 2023-02-24 12:36 | A.OFFVIS_ITS ---
Intake Vital Signs 02/24/23 12:36 Height 5 ft 6 in Weight 77 lb BMI 12.4 BP 120/72 Pulse 55 Intake Visit Reasons: 1 year follow up Intake Note: 1 year f/u Crisis Clinician Required: Yes Crisis Clinician Name: yareli [id number] Allergies No Known Allergies Allergy (Verified 02/24/23 12:58) Medication List - Last Reconciled 02/24/23 by Leon Rocha MD acetaminophen ER (Tylenol Arthritis Pain) 650 mg PO Q8H PRN allopurinol 100 mg PO QAM amlodipine 5 mg PO DAILY aspirin 81 mg PO BEDTIME calcium carbonate-vitamin D3 500 mg-10 mcg (400 unit) 1 tab PO BID carvedilol 12.5 mg PO BID cholecalciferol (vitamin D3) 50 mcg PO DAILY 30 days levothyroxine 88 mcg PO DAILY 30 days lisinopril 40 mg PO DAILY peg [id number] 1-0.2-0.2 % 1 drp ophthalmic (eye) TID white petrolatum-mineral oil 83-15 % 1 ea ophthalmic (eye) BEDTIME HPI HPI Comments History of Present Illness Details Pleasant 68-year-old female here for follow-up. She was seen primarily in the past for hypertension and chest pain. Chest pain was pleuritic in nature. This was thought to be noncardiac in origin. She returns for follow-up and has no more chest pains. Her blood pressure control is good. She is compliant with medications. 02/24/23: She returns for follow-up. Theo yanez is saying that she has been getting dizzy when she gets up in the morning after taking her blood pressure medications. She is describing lightheadedness. No vertigo. Otherwise stable and denying any other symptoms. [facility] Medical History (Updated 09/22/22 @ 14:04 by Debby Pinto RN) GERD (gastroesophageal reflux disease) Colon cancer screening Hiatal hernia Postoperative hypothyroidism Hypothyroidism Vitamin D deficiency Thyroid nodule Essential hypertension Gastritis Osteoporosis Osteopenia Surgical History Hx of colonoscopy Hx of esophageal hernia repair Hx of thyroidectomy History of endoscopy Status post removal of thyroid nodule Hx of tonsillectomy History of partial hysterectomy History of throat surgery History of delivery Status post incision and drainage Family History Sister History of breast cancer Father Automobile collision Mother Heart attack Social History Alcohol intake: never Patient Tobacco Use Status: Former Tobacco user Quit Date: 1997 Tobacco use type: Cigarette Cigarettes Per Day: 5 Years Smoked: 10 Current occupational status: employed 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 Review of Systems ENT Reports dizziness Card Denies chest pain, Denies chest pain at rest, Denies chest pain with activity, Denies rapid heart rate, Denies pedal edema, Denies edema, Denies leg edema, Denies lightheadedness, Denies palpitations, Denies dyspnea, Denies dyspnea on exertion and Denies orthopnea Resp Denies cough, Denies dyspnea and Denies dyspnea on exertion GI Denies hematochezia and Denies change in stool character Musc Denies abnormal gait, Reports limited range of motion, Reports muscle cramps, Denies muscle weakness, Denies numbness, Denies radiating pain into limb, Denies stiffness and Denies tingling Neuro Denies abnormal gait, Reports dizziness, Denies numbness and Denies tingling Endo Denies palpitations Physical Exam Vital Signs: Last Vital Signs Pulse 55 02/24/23 12:36 BP 120/72 02/24/23 12:36 BMI result Body Mass Index 12.4 GENERAL APPEARANCE: in no acute distress, well developed, well nourished. NECK/THYROID: no carotid bruit, no jugular venous distention. SKIN: no suspicious lesions, warm and dry. HEART: no murmurs, regular rate and rhythm, S1, S2 normal. LUNGS: clear to auscultation bilaterally. ABDOMEN: normal, bowel sounds present, soft, nontender, nondistended. EXTREMITIES: no clubbing, cyanosis, or edema. PERIPHERAL PULSES: equal. NEUROLOGIC: nonfocal, alert and oriented. PSYCH: mood/affect full range. Office Procedures EKG Details: Sinus bradycardia 55 beats per minute, normal axis, nonspecific T-wave changes, QTC 424 milliseconds. [id number], Complete Assessment & Plan Assessment & Plan (1) Essential hypertension: Code(s): I10 - Essential (primary) hypertension (2) Dizziness: Code(s): R42 - Dizziness and giddiness Plan Pleasant 68-year-old female who is here for follow-up. She has background history of hypertension. She is currently taking lisinopril 40 mg, carvedilol 12.5 mg twice a day amlodipine 5 mg daily. Blood pressure readings are good. She is complaining of lightheadedness specially when she stands up in the morning. She is saying this is a consistent symptom and happens after taking medications. I think we should decrease her lisinopril to 20 mg daily. She will see us back in few months. Thank you for allowing me to participate in the care of your patient. Please feel free to contact me if you have any questions. Medications: New lisinopril 20 mg PO DAILY 60 tabs 3RF I10 - Essential (primary) hypertension Coding Level of Care Code Est Pt Level 3 (80204) Diagnoses Essential hypertension I10 Dizziness R42 CPT Codes EKG - CPT: 58917-[id number], Complete ([id number])
== END 2023-02-24 13:20 | disposition home or self-care (01) ==
PROVIDERS: PCP Internal Medicine; Referring Provider Internal Medicine; Visit Provider Internal Medicine Cardiovascular Disease
DX: I10 Essential (primary) hypertension (principal); R42 Dizziness and giddiness
CPT/HCPCS: 93010; 99213

== ENCOUNTER → 2023-02-24 12:25 | Outpatient (BNVA) | payer MEDICARE, MEDICAID, SELFPAY | PROVIDERS: PCP Internal Medicine; Referring Provider Internal Medicine; Visit Provider Internal Medicine Cardiovascular Disease | DX: I10 Essential (primary) hypertension (principal); R42 Dizziness and giddiness | CPT/HCPCS: 93005; 99212 ==

== ENCOUNTER 2023-03-03 07:58 | Outpatient (REF) | payer MEDICARE, MEDICAID, SELFPAY | END 2023-03-03 07:59 | disposition home or self-care (01) | LOC: HO.LAB 07:58 | PROVIDERS: PCP Internal Medicine; Visit Provider Internal Medicine Rheumatology | DX: M17.0 Bilateral primary osteoarthritis of knee (principal); M19.041 Primary osteoarthritis, right hand; M19.042 Primary osteoarthritis, left hand; M1A.0720 Idiopathic chronic gout, left ankle and foot, without tophus (tophi) | CPT/HCPCS: 36415; 82565; 84550; 99212 ==

== ENCOUNTER 2023-03-03 07:58 | Outpatient (AMB) | payer MEDICARE, MEDICAID, SELFPAY ==
--- NOTE | 2023-03-03 08:02 | MHC.OFFVIS ---
Intake Vital Signs 03/03/23 08:12 Height 5 ft 6 in Weight 171 lb 11.841 oz BMI 27.7 BP 142/70 H Blood Pressure Location Lt brachial Position Sitting Pulse 64 Pulse Source Pulse Oximeter Temp 97.5 F Temp Source Skin Pulse Oximetry (%) 98 Oxygen Delivery Method Room Air Intake Visit Reasons: OA Intake Note: Patient here to follow up on OA. Solar Hot Water Installer Required: Yes Solar Hot Water Installer Language: Knockdown Worker Name: Angelina [id number] Accompanied by: Self / Same As Patient Allergies No Known Allergies Allergy (Verified 03/03/23 08:02) Medication List - Last Reconciled 03/03/23 by Luciano Romero MD acetaminophen ER (Tylenol Arthritis Pain) 650 mg PO Q8H PRN allopurinol 100 mg PO QAM amlodipine 5 mg PO DAILY aspirin 81 mg PO BEDTIME calcium carbonate-vitamin D3 500 mg-10 mcg (400 unit) (Oyster Shell Calcium-Vitamin D3) 1 tab PO carvedilol 12.5 mg PO BID cholecalciferol (vitamin D3) 50 mcg PO DAILY 30 days levothyroxine 75 mcg PO DAILY lisinopril 20 mg PO DAILY white petrolatum-mineral oil 57.3-42.5 % (Lubricant Eye) ophthalmic (eye) BEDTIME HPI HPI Comments History of Present Illness Details The patient returns for evaluation of her gout and osteoarthritis. We used the [employer] translating service to facilitate the visit. She remains on allopurinol 100 mg daily but wants to stop it. She says she is worried about potential side effects with the allopurinol and thinks it could damage her kidneys. She has some osteoarthritis in the hands, knees and LS spine and those areas are more painful with more physical activity. [facility] Medical History (Updated 03/03/23 @ 16:20 by Luciano Romero MD) GERD (gastroesophageal reflux disease) Colon cancer screening Hiatal hernia Postoperative hypothyroidism Hypothyroidism Vitamin D deficiency Thyroid nodule Essential hypertension Gastritis Osteoporosis Osteopenia Surgical History Hx of colonoscopy Hx of esophageal hernia repair Hx of thyroidectomy History of endoscopy Status post removal of thyroid nodule Hx of tonsillectomy History of partial hysterectomy History of throat surgery History of delivery Status post incision and drainage Family History Sister History of breast cancer Father Automobile collision Mother Heart attack Social History Alcohol intake: never Patient Tobacco Use Status: Former Tobacco user Quit Date: 1997 Tobacco use type: Cigarette Cigarettes Per Day: 5 Years Smoked: 10 Current occupational status: employed 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 Skin/Breast Details: Negative for itching, rash, hives, Raynaud's symptoms, sun sensitivity, and skin cancer Joe/Lymph Details: Negative for excessive bruising or bleeding. Physical Exam Vital Signs: Last Vital Signs Temp 97.5 F 03/03/23 08:12 Pulse 64 03/03/23 08:12 BP 142/70 H 03/03/23 08:12 Pulse Ox 98 03/03/23 08:12 Oxygen Delivery Method Room Air 03/03/23 08:12 BMI result Body Mass Index 27.7 APPEARANCE: Patient in no acute distress EXTREMITIES: No edema, no calf tenderness, normal peripheral pulses. NEURO: Oriented and alert x3. No focal weakness. Reflexes symmetric. Gait normal. SKIN: No inflammatory or neoplastic lesions. Normal color and turgor JOINT EXAM:.?? Cervical Spine:.? Full range of motion without pain; no tenderness. Thoracic Spine:.? No scoliosis.? No tenderness on palpation. Lumbar Spine:.? Alignment normal.? Mild pain with flexion at 60 degrees. Mild paraspinal muscle tenderness Chest Wall:.? No tenderness, swelling, increased warmth or erythema. Hands:.? Normal pain-free range of motion with mild tenderness and slight katy prominence at the thumb CMC joints in both hands. Elsewhere no tenderness, swelling, increased warmth or erythema. No thenar atrophy or sensory loss Wrists:.? Normal pain-free range of motion without tenderness, swelling, increased warmth or erythema. Elbows:. Normal pain-free range of motion without tenderness, swelling, increased warmth or erythema. Shoulders:.?? Full range of motion without pain. No tenderness, weakness, swelling, increased warmth or erythema. Hips:.? Full range of motion with mild lumbar pains at the extremes of external rotation or abduction. No groin pain with motion. Hip bursa:.? No tenderness. Knees: Right slight pain with the extremes of flexion. Mild patellofemoral crepitus and medial tendernss. No effusion, swelling, increased warmth or erythema.? Left:pain free range of motion and mild patellofermoral crepitus. There is slight medial tenderness but no effusion, swelling, redness or warmth. Ankles:.? Normal pain-free range of motion without tenderness, swelling, increased warmth or erythema. Feet:.? Normal pain-free range of motion without tenderness, swelling, increased warmth or erythema. Tender points:.? No tenderness to digital palpation at the occiput, trapezius, second rib, lateral epicondyle, knees, greater trochanter and gluteal area bilaterally. ? Results Reviewed Results Reviewed: Laboratory Tests 08/03/22 02/01/23 08:06 13:39 Creatinine 0.76 Uric Acid 5.2 Assessment & Plan Assessment & Plan (1) Bilateral primary osteoarthritis of knee: Code(s): M17.0 - Bilateral primary osteoarthritis of knee (2) Osteoarthritis of hands, bilateral: Code(s): M19.041 - Primary osteoarthritis, right hand; M19.042 - Primary osteoarthritis, left hand (3) Gout: Code(s): M10.9 - Gout, unspecified Qualifiers: Chronicity: chronic Gout etiology: idiopathic Gout site: foot Laterality: left Presence of tophus: without tophus Qualified Code(s): M1A.0720 - Idiopathic chronic gout, left ankle and foot, without tophus (tophi) Plan: Gout symptoms have been well controlled with this dose of allopurinol. We will recheck the uric acid level today. She is having no side effects with the allopurinol so it can be continured as above. The drug is not nephrotoxic. She has OA in the thumbs, knees and lower back. Symptomatic treatment is reviewed. She would not be a candidate for regular use of NSAID's due to her age and hypertension. A follow-up in a year would be reasonable. 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
[2023-03-03 08:12] VITALS: BP 142/70; PULSE 64; TEMP 36.4; O2SAT 98; BMI 27.7
== END 2023-03-03 08:41 | disposition home or self-care (01) ==
PROVIDERS: PCP Internal Medicine; Visit Provider Internal Medicine Rheumatology
DX: M17.0 Bilateral primary osteoarthritis of knee (principal); M19.041 Primary osteoarthritis, right hand; M19.042 Primary osteoarthritis, left hand; M1A.0720 Idiopathic chronic gout, left ankle and foot, without tophus (tophi)
CPT/HCPCS: 99213

== ENCOUNTER 2023-04-06 13:07 | Outpatient (REF) | payer MEDICARE, MEDICAID, SELFPAY ==
[2023-04-06 15:04] LABS: Thyroid Stimulating Hormone 1.64 uIU/mL (0.32-4.0)
== END 2023-04-06 13:08 | disposition home or self-care (01) ==
LOC: HO.LAB 13:07
PROVIDERS: PCP Internal Medicine; Visit Provider Internal Medicine
DX: E89.0 Postprocedural hypothyroidism (principal); I10 Essential (primary) hypertension; R42 Dizziness and giddiness
CPT/HCPCS: 36415; 84443

== ENCOUNTER 2023-05-27 12:41 | Outpatient (AMB) | payer MEDICARE, MEDICAID, SELFPAY ==
[2023-05-27 13:10] VITALS: BP 132/84; PULSE 83; BMI 28.3
--- NOTE | 2023-05-27 13:10 | A.OFFVIS_ITS ---
Intake Vital Signs 05/27/23 13:10 Height 5 ft 6 in Weight 175 lb 0.752 oz BMI 28.3 BP 132/84 Blood Pressure Location Rt brachial Position Sitting Pulse 83 Pulse Source Pulse Oximeter Intake Visit Reasons: 3 month fu (KM) Cutter Down Required: Yes Cutter Down Language: Cement Mason Helper Name: yareli gastelum [id number] Allergies No Known Allergies Allergy (Verified 05/27/23 13:12) Medication List - Last Reconciled 05/27/23 by Monserrat Maldonado SALES REPRESENTATIVE EDUCATION COURSES-C acetaminophen ER (Tylenol Arthritis Pain) 650 mg PO Q8H PRN allopurinol 100 mg PO QAM amlodipine 5 mg PO DAILY aspirin 81 mg PO BEDTIME blood pressure test kit-medium As directed calcium carbonate-vitamin D3 500 mg-10 mcg (400 unit) (Oyster Shell Calcium- Vitamin D3) 1 tab PO carvedilol 12.5 mg PO BID cholecalciferol (vitamin D3) (Vitamin D3) 50 mcg PO QAM levothyroxine 75 mcg PO DAILY lisinopril 20 mg PO DAILY white petrolatum-mineral oil 57.3-42.5 % (Lubricant Eye) ophthalmic (eye) BEDTIME HPI 3 month fu (KM) HPI Details Kirsten is a 68-year-old female past medical history of hypertension, atypical chest pain who had reported dizziness and lisinopril dose was decreased last visit. She now presents for follow-up Today she reports that she is no longer having symptoms of dizziness. No presyncope, syncope, falls. No recent chest discomfort. No shortness of breath, palpitations, PND, orthopnea or edema. Taking all meds as directed. 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 [facility] Medical History (Reviewed 05/27/23 @ 16:06 by Monserrat Maldonado, SALES REPRESENTATIVE EDUCATION COURSES-C) GERD (gastroesophageal reflux disease) Colon cancer screening Hiatal hernia Postoperative hypothyroidism Hypothyroidism Vitamin D deficiency Thyroid nodule Essential hypertension Gastritis Osteoporosis Osteopenia Surgical History Hx of colonoscopy Hx of esophageal hernia repair Hx of thyroidectomy History of endoscopy Status post removal of thyroid nodule Hx of tonsillectomy History of partial hysterectomy History of throat surgery History of delivery Status post incision and drainage Family History Sister History of breast cancer Father Automobile collision Mother Heart attack Social History Alcohol intake: never Patient Tobacco Use Status: Former Tobacco user Quit Date: 1997 Tobacco use type: Cigarette Cigarettes Per Day: 5 Years Smoked: 10 Current occupational status: employed 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 Review of Systems Const All systems reviewed & are unremarkable except as noted in HPI and below ENT Denies dizziness Card Denies chest pain, Denies chest pain at rest, Denies chest pain with activity, Denies rapid heart rate, Denies pedal edema, Denies edema, Denies leg edema, Denies lightheadedness, Denies palpitations, Denies dyspnea, Denies dyspnea on exertion and Denies orthopnea Resp Denies cough, Denies dyspnea and Denies dyspnea on exertion GI Denies hematochezia and Denies change in stool character Musc Denies abnormal gait, Denies limited range of motion, Denies muscle cramps, Denies muscle weakness, Denies numbness, Denies radiating pain into limb, Denies stiffness and Denies tingling Neuro Denies abnormal gait, Denies dizziness, Denies numbness and Denies tingling Endo Denies palpitations Physical Exam Vital Signs: Last Vital Signs Pulse 83 05/27/23 13:10 BP 132/84 05/27/23 13:10 BMI result Body Mass Index 28.3 Const General: cooperative, healthy appearing, comfortable and no acute distress Orientation/consciousness: patient oriented x3 Neck Neck: Yes normal visual inspection Resp Effort & Inspection: normal respiratory effort Auscultation: clear to auscultation bilaterally, no crackles, no rales, no rhonchi and no wheezes Cardio Jugular venous distension: no JVD Rate: regular rate Rhythm: regular rhythm Heart sounds: S1 normal heart sound present, S2 normal heart sound present, no murmurs and no rubs Neuro General: patient oriented x3 Extrem General: Yes normal to inspection Psych Appearance: grossly normal Mental Status: mental status grossly normal Speech and movement: Normal speech and movement present Assessment & Plan Assessment & Plan (1) Essential hypertension: Code(s): I10 - Essential (primary) hypertension Plan: History of hypertension. On last visit reported dizziness. Blood pressure readings were normal range however lisinopril dose reduced from 40 mg daily down to 20 mg daily. She was continued on amlodipine and carvedilol. Labs done 02/01/2023 showed potassium 4.2, creatinine 0.76. Today she reports feeling well with no dizziness. She has been taking all meds as directed. Blood pressure 132/84. Will continue current meds without change. She is requesting home blood pressure monitor as hers broke. Script given. Cardiology follow-up 1 year, sooner if needed. (2) Dizziness: Code(s): R42 - Dizziness and giddiness Plan: Resolved as above Plan Time spent with chart review, documentation, interview and assessment Medications: New blood pressure test kit-medium As directed 1 ea 0RF HTN I10 - Essential (primary) hypertension Coding Level of Care Code Est Pt Level 3 (23183) Diagnoses Essential hypertension I10 Dizziness R42 Time Spent (min) 22
== END 2023-05-27 13:38 | disposition home or self-care (01) ==
PROVIDERS: PCP Internal Medicine; Visit Provider Nurse Practitioner Family
DX: I10 Essential (primary) hypertension (principal); R42 Dizziness and giddiness
CPT/HCPCS: 99213

== ENCOUNTER → 2023-05-27 12:41 | Outpatient (BNVA) | payer MEDICARE, MEDICAID, SELFPAY | PROVIDERS: PCP Internal Medicine; Visit Provider Nurse Practitioner Family | DX: I10 Essential (primary) hypertension (principal); R42 Dizziness and giddiness | CPT/HCPCS: 99212 ==

== ENCOUNTER 2023-05-31 14:32 | Outpatient (REF) | payer MEDICARE, MEDICAID, SELFPAY ==
--- NOTE | ~2023-05-31 | MM_ITS ---
EXAMINATION: MM SCREENING DIGITAL BREAST TOMOSYNTHESIS, BILATERAL CLINICAL INFORMATION: Screening. Asymptomatic. The patient is status post bilateral breast reduction. COMPARISON: Mammography: This study is compared with prior exams dating back to 2017. TECHNIQUE: Digital breast tomosynthesis is performed in both the craniocaudal and mediolateral oblique views along with computer-aided detection (CAD). Synthesized 2D images are generated from the tomosynthesis. FINDINGS: There are scattered areas of fibroglandular density (ACR BI-RADS breast composition Category b). There are no significant masses, abnormal calcifications, or other abnormalities. There are post reduction changes present. There are a few, benign calcifications in each breast. MM/MM tomosynthesis screening BI IMPRESSION: No mammographic evidence of malignancy. ASSESSMENT: BI-RADS BI-RADS 2 - Benign Findings RECOMMENDATION: Routine annual mammography screening. 1 year F/U This examination should not preclude the clinical evaluation of a suspicious palpable abnormality. This patient's information was entered into a reminder system with a target due date for their next mammogram.
== END 2023-05-31 14:33 | disposition home or self-care (01) ==
LOC: HO.MAMMO 14:32
PROVIDERS: PCP Internal Medicine; Visit Provider Internal Medicine
DX: Z12.31 Encounter for screening mammogram for malignant neoplasm of breast (principal)
CPT/HCPCS: 77063; 77067

== ENCOUNTER → 2023-05-31 15:15 | Outpatient (BNV) | payer MEDICARE, MEDICAID, SELFPAY | PROVIDERS: PCP Internal Medicine; Visit Provider Radiology Diagnostic Radiology | DX: Z12.31 Encounter for screening mammogram for malignant neoplasm of breast (principal) | CPT/HCPCS: 77063; 77067 ==

== ENCOUNTER 2023-08-03 09:31 | Outpatient (REF) | payer MEDICARE, MEDICAID, SELFPAY ==
[2023-08-03 09:47] LABS: MANUAL DIFF FLAG NO
[2023-08-03 10:15] LABS: Basophils Absolute Auto 0.1 X10*3/uL (0.0-0.2); Basophils Percent Auto 1.3 % (0-2); Eosinophils Absolute Auto 0.2 X10*3/uL (0.0-0.4); Eosinophils Percent Auto 4.1 % (0-4); Hematocrit 43.9 % (37.0-47.0); Hemoglobin 14.5 g/dl (12.0-16.0); Imm Gran Abs Auto 0.01 X10*3/uL (0.00-0.03); Imm Gran Pct Auto 0.2 % (0.0-0.4); Lymphocytes Absolute Auto 2.2 X10*3/uL (1.2-4.9); Lymphocytes Percent Auto 40.8 % (20-40); Mean Corpuscular Hemoglobin 30.9 pg (27.0-33.0); Mean Corpuscular Volume 93.6 fL (80.0-98.0); Mean Platelet Volume 10.5 fL (9.4-12.3); Monocytes Absolute Auto 0.5 X10*3/uL (0.1-1.2); Monocytes Percent Auto 9.8 % (2-11); Neutrophils Absolute Auto 2.3 x10*3/uL (2.0-8.3); Neutrophils Percent Auto 43.8 % (45-73); Platelet Count 276 X10*3/uL (160-400); Red Blood Count 4.69 X10*6/uL (4.20-5.50); Red Cell Distribution Width 13.6 % (11.0-16.0); White Blood Count 5.3 X10*3/uL (4.8-10.8)
[2023-08-03 10:52] LABS: Alanine Aminotransferase 21 U/L (0-31); Albumin Level 3.9 g/dL (3.5-5.0); Alkaline Phosphatase 78 U/L (39-117); Anion Gap 12 (12-20); Aspartate Amino Transferase 19 U/L (5-31); Bilirubin Total 0.4 mg/dL (0.0-1.0); Blood Urea Nitrogen 10 mg/dL (9-16); Calcium 9.1 mg/dL (8.4-10.2); Carbon Dioxide 26 mmol/L (22-29); Chloride 107 mmol/L (96-108); Cholesterol 170 mg/dL (<200); Estimated Glomerular Filt Rate > 60; Glucose Random 85 mg/dL (60-115); HDL Cholesterol 38 mg/dL (>40); LDL Cholesterol Calculated 116 mg/dL (<100); Potassium 4.2 mmol/L (3.3-5.1); Sodium 141 mmol/L (135-145); Total Protein 7.1 g/dL (6.5-8.0); Triglycerides 83 mg/dL (<150)
[2023-08-03 11:09] LABS: Thyroid Stimulating Hormone 1.34 uIU/mL (0.32-4.0)
== END 2023-08-03 09:32 | disposition home or self-care (01) ==
LOC: HO.LAB 09:31
PROVIDERS: PCP Internal Medicine; Referring Provider Internal Medicine Endocrinology, Diabetes & Metabolism; Visit Provider Internal Medicine
DX: E89.0 Postprocedural hypothyroidism (principal); F32.5 Major depressive disorder, single episode, in full remission; I10 Essential (primary) hypertension; K59.00 Constipation, unspecified
CPT/HCPCS: 36415; 80053; 80061; 84443; 85025

== ENCOUNTER 2023-08-05 10:32 | Outpatient (AMB) | payer MEDICARE, MEDICAID, SELFPAY ==
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
[2023-08-05 11:05] VITALS: BP 98/76; PULSE 58; BMI 27.9
== END 2023-08-05 11:23 | disposition home or self-care (01) ==
PROVIDERS: PCP Internal Medicine; Visit Provider Internal Medicine Endocrinology, Diabetes & Metabolism
DX: E89.0 Postprocedural hypothyroidism (principal)
CPT/HCPCS: 99213

== ENCOUNTER → 2023-08-05 10:32 | Outpatient (BNVA) | payer MEDICARE, MEDICAID, SELFPAY | PROVIDERS: PCP Internal Medicine; Visit Provider Internal Medicine Endocrinology, Diabetes & Metabolism | DX: E89.0 Postprocedural hypothyroidism (principal) | CPT/HCPCS: 99212 ==

== ENCOUNTER 2023-09-20 09:18 | Emergency (ER) | payer MEDICARE, MEDICAID, SELFPAY ==
--- NOTE | ~2023-09-20 | XR_ITS ---
EXAMINATION: XR CHEST CLINICAL INFORMATION: Cough and shortness of breath. COMPARISON: 06/13/2022 TECHNIQUE: 2 views of the chest were obtained. FINDINGS: The lungs are well expanded. No focal consolidation. Linear atelectasis versus scarring in the right midlung. No pleural effusion. Cardiac silhouette is unchanged. XR/XR chest 2V IMPRESSION: No acute abnormality.
[2023-09-20 09:22] VITALS: BP 151/100; PULSE 108; RESP 20; TEMP 38.1; O2SAT 97; BMI 26.1
[2023-09-20] MEDS: Acetaminophen 325 MG TABLET 650 MG PO (09:27)
[2023-09-20 09:47] LABS: IDNOW Serial# 58CA691E; Strep A Nucleic Acid Negative (Negative)
--- NOTE | 2023-09-20 10:09 | ED.GENADULT ---
HPI - General Adult General Chief complaint: Upper Respiratory Symptoms Stated complaint: diff breathing cough body aches Time Seen by Provider: 09/20/23 10:07 Source: patient, family (patient's daughter) and cushion cover inspector (all interactions with this patient were facilitated with an [facility] Export Clerk) Mode of arrival: ambulatory Limitations: no limitations and language barrier (all interactions with this patient were facilitated with an [facility] Export Clerk) History of Present Illness HPI narrative: Patient is a 68 year old assigned female at with a history of HTN presenting to the emergency department today with body aches, cough, headache, fever, and a sore throat. Patient states that over the last 3 days she has had a cough, headache, fevers, sore throat, and body aches. Patient denies any dizziness, lightheadedness, abdominal pain, nausea, vomiting, chills, blurry vision, double vision, loss of vision, chest pain, difficulty breathing, shortness of breath, back pain, night sweats, pain with urination, increased urinary frequency, increased urinary urgency, blood in her urine or stool, syncope or a near syncopal episode, recent trauma or falls, bowel incontinence, bladder incontinence, bowel retention, bladder retention, or any other complaints at this time. Onset (ago): day(s) (3) Severity: mild Relieving factors: none Exacerbating factors: none Associated symptoms: cough, fever/chills and headaches Treatments prior to arrival: none Related Data Home Medications ?Medication ?Instructions ?Recorded ?Confirmed aspirin 81 mg tablet,delayed 81 mg PO BEDTIME 05/15/20 05/27/23 release carvedilol 12.5 mg tablet 12.5 mg PO BID 05/15/20 05/27/23 amlodipine 5 mg tablet 5 mg PO DAILY 02/23/22 05/27/23 calcium carbonate 500 mg-vitamin 1 tab PO 03/02/23 05/27/23 D3 10 mcg (400 unit) tablet (Oyster Shell Calcium-Vitamin D3) levothyroxine 75 mcg tablet 75 mcg PO DAILY 03/02/23 05/27/23 white petrolatum-mineral oil 57.3 ophthalmic (eye) BEDTIME 03/02/23 05/27/23 %-42.5 % eye ointment (Lubricant Eye) sertraline 100 mg tablet 100 mg PO DAILY 08/05/23 Previous Rx's ?Medication ?Instructions ?Recorded acetaminophen 650 mg 650 mg PO Q8H PRN pain #90 tabs 01/06/22 tablet,extended release (Tylenol Arthritis Pain) lisinopril 20 mg tablet 20 mg PO DAILY #60 tabs 02/24/23 allopurinol 100 mg tablet 100 mg PO QAM #90 tabs 03/02/23 cholecalciferol (vitamin D3) 50 50 mcg PO QAM #30 caps 03/04/23 mcg (2,000 unit) capsule (Vitamin D3) blood pressure test kit-medium #1 ea 05/27/23 oseltamivir 75 mg capsule (Tamiflu) 75 mg PO DAILY 5 days #5 caps 09/20/23 Allergies Allergy/AdvReac Type Severity Reaction Status Date / Time No Known Allergies Allergy Verified 09/20/23 09:23 Review of Systems Constitutional: Constitutional: Reports no additional constitutional complaints, Reports body ache(s), Denies chills, Reports fever(s), Reports headache(s) and Denies night sweats Eyes: Eyes: Reports no additional eye complaints, Denies blurry vision, Denies change in vision, Denies diplopia, Denies eye discharge, Denies loss of vision and Denies eye pain ENT: Denies dizziness and Reports headache(s) Cardiovascular: Cardiovascular: Reports no additional cardiovascular complaints, Denies chest pain, Denies lightheadedness, Denies Loss of Consciousness and Denies dyspnea Respiratory: Respiratory: Reports no additional respiratory complaints, Reports cough and Denies dyspnea Gastrointestinal: Gastrointestinal: Reports no additional gastrointestinal complaints, Denies abdominal pain, Denies melena, Denies hematochezia, Denies change in bowel habits and Denies change in stool character Genitourinary: Genitourinary: Denies hematuria, Denies urinary frequency, Denies dysuria, Denies urinary incontinence, Denies urinary hesitancy and Denies urinary urgency Musculoskeletal: Musculoskeletal: Reports no additional musculoskeletal complaints, Denies numbness and Denies tingling Neurologic: Denies dizziness, Reports headache(s), Denies loss of vision, Denies numbness and Denies tingling Psychiatric: Psychiatric: Reports no additional psychiatric complaints Endocrine: Endocrine: Reports no additional endocrine complaints Hematologic/Lymphatic: Hematologic/Lymphatic: Reports no additional hematologic/lymphatic complaints Allergic/Immunologic: Allergic/Immunologic: Reports no additional allergic/immunologic complaints PMFSH Past Medical History Attestation statement: The following information was validated with the patient. Source: old records reviewed and nursing notes reviewed Medical History GERD (gastroesophageal reflux disease) Colon cancer screening Hiatal hernia Postoperative hypothyroidism Hypothyroidism Vitamin D deficiency Thyroid nodule Essential hypertension Gastritis Osteoporosis Osteopenia Surgical History Hx of colonoscopy Hx of esophageal hernia repair Hx of thyroidectomy History of endoscopy Status post removal of thyroid nodule Hx of tonsillectomy History of partial hysterectomy History of throat surgery History of delivery Status post incision and drainage Family History Family History Sister History of breast cancer Father Automobile collision Mother Heart attack Social History Social History Alcohol intake: never Patient Tobacco Use Status: Former Tobacco user Quit Date: 1997 Tobacco use type: Cigarette Cigarettes Per Day: 5 Years Smoked: 10 Advance Directives: No Advance Directives Information Provided: No Current occupational status: employed 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 Physical Exam ED Vital Signs: Vital Signs - 24 hr 09/20/23 09:22 09/20/23 11:24 Temperature 100.6 F H 100.1 F Pulse Rate 108 H 102 H Respiratory Rate 20 18 Blood Pressure 151/100 H 150/98 H Pulse Oximetry 97 97 Oxygen Delivery Method Room Air Room Air BMI result Body Mass Index 26.1 Const General: cooperative, no acute distress, alert and awake Nutritional Appearance: well nourished Orientation/consciousness: patient oriented x3 Limitations: no limitations HENMT Head: Yes normal to inspection and Yes atraumatic Ears: hearing grossly normal bilaterally and external ears normal General nose exam: Normal external nose present, no nasal discharge noted and no epistaxis Face and sinus: Yes normal facial exam, No abrasion and No laceration Mouth: Normal oral and palatal mucosa present, no drooling and no muffled voice Eyes General: appearance normal, both eyes and all related structures Periorbital: periorbital findings normal Eyelids: Yes eyelids normal Conjunctivae: conjunctivae normal Pupils: Equal, round and reactive pupils present EOM: EOMs intact bilaterally Neck Neck: Yes normal visual inspection, Yes full ROM and Yes no lymphadenopathy Chest Chest palpation & inspection: normal inspection of the chest Resp Effort & Inspection: normal respiratory effort and able to speak in complete sentences GI Inspection: Yes normal to inspection Neuro General: patient oriented x3 and moves all extremities Cranial nerves: Yes Equal, round and reactive pupils present Cognition (Neuro): normal cognition Motor exam (neuro): 5/5 motor strength present throughout Sensory Exam: Normal double simultaneous stimulation for sensation Coordination: [id number] test normal Extrem General: Yes normal to inspection, Yes full ROM and Yes capillary refill normal Psych Appearance: grossly normal Mental Status: mental status grossly normal Affect: normal affect Attitude: cooperative Thought process: Normal thought process present Thought content: Normal thought content present Insight: Good insight present (Psych) Medications Administered Discontinued Medications Generic Name Dose Route Start Last Admin Trade Name Freq PRN Reason Stop Dose Admin Acetaminophen 650 mg 09/20/23 09:24 09/20/23 09:27 Acetaminophen 325 Mg Tablet PO 09/20/23 09:25 650 mg ONCE ONE Administration Medical Decision Making Medical Decision Making [facility] Narrative: Patient is a 68 year old assigned female at with a history of HTN presenting to the emergency department today with a cough, fever, body aches, headache, and sore throat. Patient's physical exam was unremarkable. Patient's chest x-ray showed no acute process. Patient's COVID-19 and RSV tests were negative. Patient's Influenza test as positive. I explained my physical exam findings as well as all test results to the patient and the patient's daughter. I answered all questions asked by the patient and the patient's daughter. I stressed the importance of the patient taking her medication as prescribed. I stressed the importance of the patient following up with her primary care provider. I stressed the importance of the patient returning to the emergency department immediately if her symptoms were to worsen or if she were to develop any dizziness, shortness of breath, difficulty breathing, chest pain, blurry vision, loss of vision, nausea, vomiting, abdominal pain, fever, chills, back pain, or any other complaints. Patient verbalized agreement and understanding with this treatment plan and discharge. Differential Diagnosis Differential Diagnoses: The differential diagnosis associated with the presentation includes COVID-19 Influenza RSV Viral illness Pharyngitis Strep pharyngitis Admission/Observation Consideration of admission/observation: Escalation of care including admission/observation considered Patient would have been admitted to the hospital had her work up had any findings where hospital admission was appropriate and her clinical presentation warranted hospital admission. Lab Data [facility] Lab Attestation statement: I reviewed the patient's lab results. My interpretation of these results are in the [facility] Rationale portion of this note. Labs: Lab Results 09/20/23 Range/Units 09:29 Influenza Type A (PCR) POSITIVE A (Negative) Influenza Type B (PCR) NEGATIVE (Negative) RSV RNA Qual (PCR) NEGATIVE (Negative) SARS-CoV-2 RNA (RT-PCR) NEGATIVE (Negative) S. pyogenes GrpA ANDRES Negative (Negative) Independent Interpretation I performed an independent interpretation of an: Plain X-Ray Interpretation: My interpretation is in agreement with the radiologist's impression of this imaging study. EXAMINATION: XR CHEST CLINICAL INFORMATION: Cough and shortness of breath. COMPARISON: 06/13/2022 TECHNIQUE: 2 views of the chest were obtained. FINDINGS: The lungs are well expanded. No focal consolidation. Linear atelectasis versus scarring in the right midlung. No pleural effusion. Cardiac silhouette is unchanged. XR/XR chest 2V IMPRESSION: No acute abnormality. Dictated By: Sridevi Fernandes MD Signed By: Electronically signed by Sridevi Fernandes MD 09/20/23 1118 Radiology Impression Discussion of test interpretation with radiology: I have reviewed the radiologist's reading. Independent Historian Clinical information obtained from an independent historian. History obtained from or confirmed by: Other (patient's daughter provided additional history and confirmed the history provided by the patient.) Prescription Management I considered prescription management with: Antiviral (patient prescribed an antiviral for influenza) Chronic Conditions Patient?s care impacted by: Hypertension Discharge Plan Discharge Clinical Impression: Influenza Patient Disposition: Home, Self-Care Instructions: Influenza (DC) Additional Instructions: Follow up with your primary care provider. Return to the emergency department immediately if your symptoms worsen or if you develop any dizziness, shortness of breath, difficulty breathing, chest pain, blurry vision, loss of vision, nausea, vomiting, abdominal pain, fever, chills, back pain, or any other complaints. Prescriptions: New oseltamivir [Tamiflu] 75 mg capsule 75 mg PO DAILY 5 Days Qty: 5 0RF No Action allopurinol 100 mg tablet 100 mg PO QAM Qty: 90 3RF cholecalciferol (vitamin D3) [Vitamin D3] 50 mcg (2,000 unit) capsule 50 mcg PO QAM Qty: 30 11RF carvedilol 12.5 mg tablet 12.5 mg PO BID aspirin 81 mg tablet,delayed release (DR/EC) 81 mg PO BEDTIME acetaminophen [Tylenol Arthritis Pain] 650 mg tablet extended release 650 mg PO Q8H PRN (Reason: pain) Qty: 90 3RF amlodipine 5 mg tablet 5 mg PO DAILY lisinopril 20 mg tablet 20 mg PO DAILY Qty: 60 3RF (DME) blood pressure test kit-medium Kit See Rx Instructions .Route Qty: 1 0RF Rx Instructions: As directed levothyroxine 75 mcg tablet 75 mcg PO DAILY calcium carbonate-vitamin D3 [Oyster Shell Calcium-Vit D3] 500 mg-10 mcg (400 unit) tablet 1 tab PO Lubricant Eye 57.3-42.5 % ointment ophthalmic (eye) BEDTIME sertraline 100 mg tablet 100 mg PO DAILY Referrals: Leora Grande MD [Primary Care Provider] - Interventions: ED Discharge Assessment Last Done: 09/20/23 11:24 Discharge Date/Time: 09/20/23 11:24 Print Language: German
[2023-09-20 10:16] LABS: Influenza A PCR POSITIVE (Negative); Influenza B PCR NEGATIVE (Negative); Resp Syncy Virus RNA Qual PCR NEGATIVE (Negative); SARS COV2 PCR INHOUSE NEGATIVE (Negative)
[2023-09-20 11:24] VITALS: BP 150/98; PULSE 102; RESP 18; TEMP 37.8; O2SAT 97
== END 2023-09-20 11:24 | disposition home or self-care (01) ==
PROVIDERS: Emergency Provider Emergency Medicine; PCP Internal Medicine
DX: J11.1 Influenza due to unidentified influenza virus with other respiratory manifestations (principal); I10 Essential (primary) hypertension
CPT/HCPCS: 0241U; 71046; 87651; 99283

== ENCOUNTER 2023-11-05 07:59 | Outpatient (REF) | payer MEDICARE, MEDICAID, SELFPAY ==
[2023-11-05 08:14] LABS: MANUAL DIFF FLAG NO
[2023-11-05 08:46] LABS: Basophils Absolute Auto 0.1 X10*3/uL (0.0-0.2); Basophils Percent Auto 1.1 % (0-2); Eosinophils Absolute Auto 0.3 X10*3/uL (0.0-0.4); Eosinophils Percent Auto 4.9 % (0-4); Hemoglobin 14.1 g/dl (12.0-16.0); Imm Gran Abs Auto 0.01 X10*3/uL (0.00-0.03); Imm Gran Pct Auto 0.2 % (0.0-0.4); Lymphocytes Absolute Auto 2.6 X10*3/uL (1.2-4.9); Mean Corpuscular HGB Conc 34.4 g/dl (31.0-35.0); Mean Corpuscular Hemoglobin 31.8 pg (27.0-33.0); Mean Corpuscular Volume 92.6 fL (80.0-98.0); Mean Platelet Volume 10.8 fL (9.4-12.3); Monocytes Absolute Auto 0.7 X10*3/uL (0.1-1.2); Monocytes Percent Auto 10.4 % (2-11); Neutrophils Absolute Auto 2.9 x10*3/uL (2.0-8.3); Neutrophils Percent Auto 44.4 % (45-73); Platelet Count 280 X10*3/uL (160-400); Red Blood Count 4.43 X10*6/uL (4.20-5.50); Red Cell Distribution Width 13.5 % (11.0-16.0); White Blood Count 6.5 X10*3/uL (4.8-10.8)
[2023-11-05 09:21] LABS: Alanine Aminotransferase 23 U/L (0-31); Alkaline Phosphatase 80 U/L (39-117); Anion Gap 13 (12-20); Aspartate Amino Transferase 23 U/L (5-31); Bilirubin Total 0.5 mg/dL (0.0-1.0); Blood Urea Nitrogen 10 mg/dL (9-16); Calcium 9.6 mg/dL (8.4-10.2); Carbon Dioxide 25 mmol/L (22-29); Chloride 106 mmol/L (96-108); Cholesterol 177 mg/dL (<200); Estimated Glomerular Filt Rate > 60; Glucose Random 88 mg/dL (60-115); HDL Cholesterol 39 mg/dL (>40); LDL Cholesterol Calculated 116 mg/dL (<100); Potassium 4.1 mmol/L (3.3-5.1); Sodium 140 mmol/L (135-145); Total Protein 7.1 g/dL (6.5-8.0); Triglycerides 113 mg/dL (<150)
== END 2023-11-05 08:00 | disposition home or self-care (01) ==
LOC: HO.LAB 07:59
PROVIDERS: PCP Internal Medicine; Visit Provider Internal Medicine
DX: R42 Dizziness and giddiness (principal); I10 Essential (primary) hypertension; E89.0 Postprocedural hypothyroidism; F32.2 Major depressive disorder, single episode, severe without psychotic features
CPT/HCPCS: 36415; 80053; 80061; 85025

== ENCOUNTER 2024-02-11 08:44 | Outpatient (REF) | payer MEDICARE, MEDICAID, SELFPAY ==
[2024-02-11 10:07] LABS: Alanine Aminotransferase 35 U/L (0-31); Albumin Level 3.9 g/dL (3.5-5.0); Alkaline Phosphatase 69 U/L (39-117); Anion Gap 10 (12-20); Aspartate Amino Transferase 25 U/L (5-31); Bilirubin Total 0.6 mg/dL (0.0-1.0); Blood Urea Nitrogen 10 mg/dL (9-16); Calcium 9.9 mg/dL (8.4-10.2); Carbon Dioxide 28 mmol/L (22-29); Chloride 107 mmol/L (96-108); Cholesterol 167 mg/dL (<200); Estimated Glomerular Filt Rate > 60; Glucose Random 85 mg/dL (60-115); HDL Cholesterol 43 mg/dL (>40); LDL Cholesterol Calculated 109 mg/dL (<100); Potassium 4.3 mmol/L (3.3-5.1); Sodium 141 mmol/L (135-145); Triglycerides 78 mg/dL (<150)
[2024-02-11 10:09] LABS: Thyroid Stimulating Hormone 6.55 uIU/mL (0.32-4.0)
== END 2024-02-11 08:45 | disposition home or self-care (01) ==
LOC: HO.LAB 08:44
PROVIDERS: PCP Internal Medicine; Visit Provider Internal Medicine
DX: E89.0 Postprocedural hypothyroidism (principal); F32.4 Major depressive disorder, single episode, in partial remission; I10 Essential (primary) hypertension; M10.9 Gout, unspecified; M22.2X1 Patellofemoral disorders, right knee
CPT/HCPCS: 36415; 80053; 80061; 84443

== ENCOUNTER 2024-02-28 08:35 | Outpatient (AMB) | payer MEDICARE, MEDICAID, SELFPAY ==
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
[2024-02-28 08:39] VITALS: BP 130/88; PULSE 71; BMI 27.6
== END 2024-02-28 09:19 | disposition home or self-care (01) ==
PROVIDERS: PCP Internal Medicine; Visit Provider Student in an Organized Health Care Education/Training Program
DX: E89.0 Postprocedural hypothyroidism (principal); M85.88 Other specified disorders of bone density and structure, other site
CPT/HCPCS: 99214

== ENCOUNTER → 2024-02-28 08:35 | Outpatient (BNVA) | payer MEDICARE, MEDICAID, SELFPAY | PROVIDERS: PCP Internal Medicine; Visit Provider Student in an Organized Health Care Education/Training Program | DX: E89.0 Postprocedural hypothyroidism (principal); M85.89 Other specified disorders of bone density and structure, multiple sites; Z78.0 Asymptomatic menopausal state; Z90.710 Acquired absence of both cervix and uterus; Z90.722 Acquired absence of ovaries, bilateral | CPT/HCPCS: 99212 ==

== ENCOUNTER 2024-04-03 08:36 | Outpatient (REF) | payer MEDICARE, MEDICAID, SELFPAY ==
[2024-04-03 10:59] LABS: Free T4 (Free Thyroxine) 1.32 ng/dL (0.71-1.85); Thyroid Stimulating Hormone 0.45 uIU/mL (0.32-4.0)
[2024-04-04 22:53] LABS: Thyroglobulin <0.1 ng/mL; Thyroglobulin Antibodies <1 IU/mL (< or = 1)
[2024-04-07 08:13] LABS: Thyroglobulin Antibody <1 IU/mL (<=1); Thyroglobulin Level <0.1 ng/mL
== END 2024-04-03 08:37 | disposition home or self-care (01) ==
LOC: HO.LAB 08:36
PROVIDERS: PCP Internal Medicine; Visit Provider Student in an Organized Health Care Education/Training Program
DX: E89.0 Postprocedural hypothyroidism (principal); E04.1 Nontoxic single thyroid nodule
CPT/HCPCS: 36415; 84432; 84439; 84443; 86800

== ENCOUNTER 2024-05-31 08:48 | Outpatient (AMB) | payer MEDICARE, MEDICAID, SELFPAY ==
--- OUTSIDE RECORDS SUMMARY | 2024-05-31 09:00 | XMS_ITS | Continuity of Care Document ---
Author Organization [facility] [address] [place] [address] Phone [phone] Care Team Providers Care Creative Technologist Name Role Phone [place] Care Team Information Director Of Residential Services [phone] Problems Active Problems Provider Date Essential hypertension Marlon Sauer M.D. Ons et: 11/02/2022 H/O: chirag Sauer M.D. Onset: Major depressive disorder Marlon Sauer M.D. Onset: 11/02/2022 Hypothyroidism Marlon Sauer M.D. Onset: Gout Marlon Sauer M.D. Onset: Social History Type Date Description Comments Sex Unknown Tobacco Use Start: Unknown End: Unknown Quit Smoking Status Reviewed: 11/02/22 Quit ETOH Use Never used alcohol Tobacco Use Start: Unknown End: Unknown Patient is a former smoker Allergies and adverse reactions Description No Known Drug Allergies Medications Active Medications SIG Qnty Indications Ordering Provider Date Aspirin 8181mg Tablets DR 1 by mouth every day Marlon Sauer M.D. 11/02/2022 Levothyroxine [id number] Tablets Take 1 Tablet By Mouth Every Morning Melony Schuster, DO Amlodipine [id number] Tablets Take 1 Tablet By Mouth Every Morning Adlakjean pierre, Leora Acetaminophen [id number] Tablets ER Take 1 Tablet By Mouth Three Times Daily as Needed For Pain Adlakha, Leora Hfzrmkwtle15.5mg Tablets 1 by mouth twice a day Saima Stauffer [id number] Tablets Take 1 Tablet By Mouth Every Morning Meghan Mccollum Hueqnigcnt62zu Tablets Randall Fariha Ku[place] as Leora Grande Vital Signs Date Vital Result Comment 11/02/2022 1:34pm BP Systolic 100 mmHg BP Diastolic 80 mmHg Heart Rate 61 /min Height 64.5 inches 5'4.50 Weight 165.00 lb BMI (Body Mass Index) 27.9 kg/m2 Results Test Acquired Date Facility Test Result H/L [place] Laboratory test finding 11/02/2022 [facility] TSH With Reflex To FT4 0.68 uIU/mL (0.4-4.2) Medical Devices Description No Information Available Encounters Type Date Location Provider Dx Diagnosis Office Visit 11/02/2022 1:45p Main Office Marlon Sauer M.D. E03.9 Hypothyroidism, unspecified I10 Essential (primary) hypertension M10.9 Gout, unspecified Assessments Date Code Description Provider 11/02/2022 E03.9 Hypothyroidism, unspecified Malron Sauer M.D. 11/02/2022 I10 Essential hypertension Marlon Sauer M.D. 11/02/2022 M10.9 Gout Marlon Saeur M.D. Plan of Treatment 11/02/2022 - Marlon Sauer M.D.* E03.9 Hypothyroidism, unspecified * I10 Essential hypertension * M10.9 Gout * * New Labs:* TSH With Reflex To FT4, Ordered: 11/02/22 * Thyroglobulin, Tumor Marker W/Reflex, Ordered: 11/02/22 Functional Status Description No Information Available Mental Status Description No Information Available Referrals Description No Information Available
--- NOTE | 2024-05-31 09:09 | A.OFFVIS_ITS ---
Vital Signs 05/31/24 09:10 Height 5 ft 6 in Weight 167 lb 15.876 oz BMI 27.1 BP 130/68 Blood Pressure Location Lt brachial Position Sitting Pulse 70 Pulse Source Monitor Intake Visit Reasons: 1 year follow up Intake Note: 1 yr f/up- Industrial Psychology Professor Required: Yes Industrial Psychology Professor Language: Admissions Clerk Name: [id number] Accompanied by: Self / Same As Patient Allergies No Known Allergies Allergy (Verified 02/28/24 08:43) Medication List - Last Reconciled 05/31/24 by Leon Rocha MD acetaminophen ER (Tylenol Arthritis Pain) 650 mg PO Q8H PRN allopurinol 100 mg PO QAM amlodipine 5 mg PO DAILY aspirin 81 mg PO BEDTIME blood pressure test kit-medium As directed calcium carbonate-vitamin D3 500 mg-10 mcg (400 unit) (Oyster Shell Calcium- Vitamin D3) 1 tab PO carvedilol 12.5 mg PO BID cholecalciferol (vitamin D3) (Vitamin D3) 50 mcg PO QAM levothyroxine 75 mcg PO DAILY lisinopril 20 mg PO QAM oseltamivir (Tamiflu) 75 mg PO DAILY 5 days sertraline 100 mg PO DAILY white petrolatum-mineral oil 57.3-42.5 % (Lubricant Eye) ophthalmic (eye) BEDTIME HPI Comments Details: Pleasant 68-year-old female here for follow-up. She was seen primarily in the past for hypertension and chest pain. Chest pain was pleuritic in nature. This was thought to be noncardiac in origin. She returns for follow-up and has no more chest pains. Her blood pressure control is good. She is compliant with medications. 02/24/23: She returns for follow-up. She is saying that she has been getting dizzy when she gets up in the morning after taking her blood pressure medications. She is describing lightheadedness. No vertigo. Otherwise stable and denying any other symptoms. 05/31/2024: She is here for follow-up. Doing well. No CP or SOB. She has been getting some dizziness after 30 mins of taking morning medications. [facility] Medical History (Updated 02/28/24 @ 09:33 by Bria Gutierrez MD) GERD (gastroesophageal reflux disease) Colon cancer screening Hiatal hernia Postoperative hypothyroidism Hypothyroidism Vitamin D deficiency Thyroid nodule Essential hypertension Gastritis Osteoporosis Osteopenia Surgical History Hx of colonoscopy Hx of esophageal hernia repair Hx of thyroidectomy History of endoscopy Status post removal of thyroid nodule Hx of tonsillectomy History of partial hysterectomy History of throat surgery History of delivery Status post incision and drainage Family History Sister History of breast cancer Father Automobile collision Mother Heart attack Social History Alcohol intake: never Patient Tobacco Use Status: Former Tobacco user Tobacco use type: Cigarette Cigarettes Per Day: 5 Years Smoked: 10 Current occupational status: employed 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 Review of Systems Const Denies chills, Denies fatigue, Denies fever(s), Denies frequent falls, Denies weakness, Denies weight gain and Denies weight loss ENT Reports dizziness Card Denies chest pain, Denies leg edema, Denies lightheadedness, Denies palpitations, Denies dyspnea and Denies dyspnea on exertion Resp Denies cough, Denies dyspnea and Denies dyspnea on exertion GI Denies hematochezia Musc Denies abnormal gait, Denies muscle weakness, Denies numbness, Denies radiating pain into limb and Denies tingling Neuro Denies abnormal gait, Reports dizziness, Denies frequent falls, Denies numbness, Denies tingling and Denies weakness Endo Denies fatigue and Denies palpitations Physical Exam Vital Signs: Last Vital Signs Pulse 70 05/31/24 09:10 BP 130/68 05/31/24 09:10 BMI result Body Mass Index 27.1 GENERAL APPEARANCE: in no acute distress. NECK/THYROID: no carotid bruit, no jugular venous distention. SKIN: no suspicious lesions, warm and dry. HEART: no murmurs, regular rate and rhythm, S1, S2 normal. LUNGS: clear to auscultation bilaterally. ABDOMEN: normal, bowel sounds present, soft, nontender, nondistended. EXTREMITIES: no clubbing, cyanosis, or edema. PERIPHERAL PULSES: equal. NEUROLOGIC: nonfocal, alert and oriented. PSYCH: mood/affect full range. Office Procedures EKG Details: Sinus rhythm 70 beats per minute, normal axis, low voltage in precordial leads, QTC 442 milliseconds. [id number], Complete Assessment & Plan Assessment & Plan (1) Essential hypertension: Code(s): I10 - Essential (primary) hypertension Category: Medical (2) Dizziness: Code(s): R42 - Dizziness and giddiness Category: Medical Plan Pleasant 68-year-old female who is here for follow-up. She has background history of hypertension. She is currently taking lisinopril 40 mg, carvedilol 12.5 mg twice a day amlodipine 5 mg daily. Blood pressure readings are good. She is complaining of lightheadedness specially when she stands up in the morning. She is saying this is a consistent symptom and happens after taking medications. Her lisinopril was decreased to 20 mg last time. I have advised her to take Lisinopril in the evening. She will see us back in few months. Thank you for allowing me to participate in the care of your patient. Please feel free to contact me if you have any questions. Orders: Orders CA echo transthoracic complete Today I10 - Essential (primary) hypertension Medications: Changed From lisinopril 20 mg PO QAM 90 tabs 1RF I10 - Essential (primary) hypertension To lisinopril 20 mg PO QPM 90 tabs 1RF I10 - Essential (primary) hypertension Coding Level of Care Code Est Pt Level 4 (47942) Diagnoses Essential hypertension I10 Dizziness R42 CPT Codes EKG - CPT: 87658-[id number], Complete ([id number])
[2024-05-31 09:10] VITALS: BP 130/68; PULSE 70; BMI 27.1
== END 2024-05-31 09:36 | disposition home or self-care (01) ==
PROVIDERS: PCP Internal Medicine; Visit Provider Internal Medicine Cardiovascular Disease
DX: I10 Essential (primary) hypertension (principal); R42 Dizziness and giddiness
CPT/HCPCS: 93010; 99214

== ENCOUNTER → 2024-05-31 08:48 | Outpatient (BNVA) | payer MEDICARE, MEDICAID, SELFPAY | PROVIDERS: PCP Internal Medicine; Visit Provider Internal Medicine Cardiovascular Disease | DX: I10 Essential (primary) hypertension (principal); R42 Dizziness and giddiness; R94.31 Abnormal electrocardiogram [ECG] [EKG] | CPT/HCPCS: 93005; 99212 ==

== ENCOUNTER 2024-06-15 13:37 | Outpatient (REF) | payer MEDICARE, MEDICAID, SELFPAY ==
--- NOTE | ~2024-06-15 | MM_ITS ---
EXAMINATION: MM SCREENING DIGITAL BREAST TOMOSYNTHESIS, BILATERAL CLINICAL INFORMATION: Screening. Asymptomatic. COMPARISON: Mammography: Comparison is made with available priors TECHNIQUE: Digital breast mammography with tomosynthesis is performed in both the craniocaudal and mediolateral oblique views along with computer-aided detection (CAD). FINDINGS: There are scattered areas of fibroglandular density (ACR BI-RADS breast composition Category b). Bilateral reduction mammoplasty. There are no significant masses, abnormal calcifications, or other abnormalities. MM/MM tomosynthesis screening BI IMPRESSION: No mammographic evidence of malignancy. ASSESSMENT: BI-RADS BI-RADS 2 - Benign Findings RECOMMENDATION: Routine annual mammography screening. 1 year F/U This examination should not preclude the clinical evaluation of a suspicious palpable abnormality. This patient's information was entered into a reminder system with a target due date for their next mammogram. Electronically signed by: Octavia Quiñones DO 06/24/2024 09:25 PM RAFFY
== END 2024-06-15 13:38 | disposition home or self-care (01) ==
LOC: HO.MAMMO 13:37
PROVIDERS: PCP Internal Medicine; Visit Provider Internal Medicine
DX: Z12.31 Encounter for screening mammogram for malignant neoplasm of breast (principal)
CPT/HCPCS: 77063; 77067

== ENCOUNTER → 2024-06-15 14:00 | Outpatient (BNV) | payer MEDICARE, MEDICAID, SELFPAY | PROVIDERS: PCP Internal Medicine; Visit Provider Internal Medicine | DX: Z12.31 Encounter for screening mammogram for malignant neoplasm of breast (principal) | CPT/HCPCS: 77063; 77067 ==

== ENCOUNTER → 2024-06-19 12:51 | Outpatient (REF) | payer MEDICARE, MEDICAID, SELFPAY ==
--- NOTE | 2024-06-19 12:54 | CA_ITS ---
Transthoracic Echocardiogram Patient (Last, First, Middle): Kirsten Boateng E Gender: Female Date of : 1955 Age: 69 Procedure Date: 06/19/2024 Procedure Type: Transthoracic Echocardiogram Location: OP Height: 167. cm Weight: 75.3 kg BSA: 1.84 m2 Heart Rate: 55 bpm BP: 140 / 90 mmHg [employer] Supervisor: CRISPIN Collazo MD: Leon Rocha MD Supervisor Blueprinting And Photocopy: Leon Rocha MD Symptoms: I10 - Essential (primary) hypertension Study Quality: Adequate ECG Rhythm: Bradycardia Conclusions: - Normal left ventricular size and systolic function. There is mildly increased left ventricular wall thickness. The visually estimated ejection fraction is between 60-65%. - E/E prime ratio is between 8 and 15 consistent with indeterminate filling pressures. - Normal right ventricular cavity size and systolic function. - There is trace (trivial) aortic valve regurgitation. - There is mild dilatation of the ascending aorta measuring 3.80 cm. Findings Left Ventricle Normal left ventricular size and systolic function. There is mildly increased left ventricular wall thickness. The visually estimated ejection fraction is between 60-65%. There is no evidence of regional wall motion abnormalities. Abnormal diastolic function is noted. Spectral Doppler is indicative of an impaired relaxation filling pattern. E/E prime ratio is between 8 and 15 consistent with indeterminate filling pressures. Right Ventricle Normal right ventricular cavity size and systolic function. Atria The left atrium is normal in size. The right atrium is normal in size. Aortic Valve Normal aortic valve structure and function. There is no aortic valve stenosis. There is trace (trivial) aortic valve regurgitation. Mitral Valve The mitral valve appears normal. There is no mitral valve regurgitation. There is no mitral valve stenosis. Pulmonic Valve The pulmonic valve is normal. There is trace pulmonic valve regurgitation. Tricuspid Valve Normal tricuspid valve structure. There is no tricuspid valve regurgitation. Normal right atrial pressure. There is no evidence of pulmonary hypertension. Great Vessels There is mild dilatation of the ascending aorta measuring 3.80 cm. The visualized portions of the pulmonary artery and branches are normal. Venous The inferior vena cava is normal in size and collapses greater than 50% with inspiration. Pericardium/Pleural There is no evidence of pericardial effusion. Prior Study Comparison Changes noted compared to prior study dated: 12/12/2019. Mild ascending aorta dilation Measurements 2D Linear Measurements IVSd: 1.17 0.6-0.9/0.6-1.0 cm LVIDd: 3.78 3.9-5.3/4.2-5.9 cm LVIDd Index: 2.05 2.4-3.2/2.2-3.1 cm/m2 LVIDs: 2.05 2.0-3.6 cm LVPWd: 1.06 0.7-1.1 cm LA Diam: 2.90 2.7-3.8/3.0-4.0 cm LAIDs Index: 1.58 1.5-2.3 cm/m2 LV Mass: 169.59 67-162/88-224 g LV Mass Index: 92.17 43-95/49-115 g/m2 LVOT Diam: 1.90 3.0+(-)1.3 cm 2D Systolic Function EF 4C: 68.10 >55% EF 2C: 71.90 >55% EF BiP: 69.40 >55% Mitral Valve MV Pk E: 0.67 MV PK A: 0.78 MV Decel Time: 302.00 E/A: 0.90 E'Lateral: 5.33 E'Medial: 4.03 E/E' Med: 16.60 E/E' Lat: 12.50 PHT: 88.00 MVA PHT: 2.50 Decel Jessamine: 2.22 Aortic Valve AoV Pk Daniel: 1.29 AoV Mn Daniel: 0.96 AoV VTI: 0.32 AoV Pk Grad: 7.00 Aov Mn Grad: 4.00 ELANA Cont.VTI: 2.21 LVOT LVOT Pk Daniel: 1.06 LVOT Mn Daniel: 0.71 LVOT VTI: 0.25 LVOT Pk Grad: 4.00 LVOT Mn Grad: 2.00 LVOT Diam: 1.90 LVOT Area: 2.84 Diastolic Function MV Pk E: 0.67 MV Pk A: 0.78 E/A: 0.90 E'Medial: 4.03 E/E' Med: 16.60 E' Laterial: 5.33 E/E' Lat: 12.50 Right Ventricle TAPSE (mm): 17.10 TVS' Daniel: 9.03 Tricuspid Valve TR Pk Daniel: 2.31 TR Pk Grad: 21.00 RA Press: 3.00 RVSP: 24.00 Great Vessels Aorta Sinus of Valsalva: 2.90 2.0-3.5 cm Ao Asc: 3.80 2.1-3.4 cm Ao Arch: 2.60 Pulmonary Valve PV Pk Daniel: 0.64 Peak PV Grad: 2.00 Updated in Other Vendor System with Status of Final Leon Rocha MD electronically signed on 06/26/2024 12:31:55 PM with status of Final
--- OUTSIDE RECORDS SUMMARY | 2024-06-19 14:50 | XMS_ITS | Continuity of Care Document ---
Author Organization [facility] [address] [place] [address] Phone [phone] Care Team Providers Care [employer] Officer Name Role Phone Leora Grande Care Team Information Outside Deliverer [phone] Problems Active Problems Provider Date Essential hypertension [...] every day Marlon Sauer M.D. 11/02/2022 Levothyroxine [id number] Tablets Take 1 Tablet By Mouth Every Morning Melony Schuster, DO Amlodipine Irkonukm5zx Tablets Take 1 Tablet By Mouth Every Morning Adlakjean pierre, Leora Acetaminophen [id number] Tablets ER Take 1 Tablet By Mouth Three Times Daily as Needed For Pain Adlakha, Leora Whcmtmiegp88.5mg Tablets 1 by mouth twice a day Saima Stauffer Fpngsiljfto986ml Tablets Take 1 Tablet By Mouth Every Morning Meghan Mccollum Hqjjtdtziy69vo Tablets [place] Fariha Ku[place] Grande Vital Signs Date Vital Result Comment 11/02/2022 1:34pm BP Systolic 100 mmHg BP Diastolic 80 mmHg Heart Rate 61 /min Height 64.5 inches 5'4.50 Weight 165.00 lb BMI (Body Mass Index) 27.9 kg/m2 Results Test Acquired Date Facility Test Result H/L Range N ote Laboratory test finding 11/02/2022 [facility] TSH With Reflex To FT4 0.68 uIU/mL (0.4-4.2) Medical Devices Description No Information Available Encounters Type Date Location Provider Dx Diagnosis Office Visit 11/02/2022 1:45p Main Office Marlon Sauer M.D. E03.9 Hypothyroidism, unspecified I10 Essential (primary) hypertension M10.9 Gout, unspecified Assessments Date Code Description Provider 11/02/2022 E03.9 Hypothyroidism, unspecified Marlon Sauer M.D. 11/02/2022 I10 Essential hypertension Marlon Sauer M.D. 11/02/2022 M10.9 Gout Marlon Sauer M.D. Plan of Treatment 11/02/2022 - Marlon Sauer M.D.* E03.9 Hypothyroidism, unspecified * I10 Essential hypertension * M10.9 Gout * * New Labs:* TSH With Reflex To FT4, Ordered: 11/02/22 * Thyroglobulin, Tumor Marker W/Reflex, Ordered: 11/02/22 Functional Status Description No Information Available Mental Status Description No Information Available Referrals Description No Information Available
== END ==
LOC: HO.CARD 12:51
PROVIDERS: PCP Internal Medicine; Visit Provider Internal Medicine Cardiovascular Disease
DX: I10 Essential (primary) hypertension (principal)
CPT/HCPCS: 93306

== ENCOUNTER → 2024-06-19 12:54 | Outpatient (BNV) | payer MEDICARE, MEDICAID, SELFPAY | PROVIDERS: PCP Internal Medicine; Visit Provider Internal Medicine Cardiovascular Disease | DX: I35.1 Nonrheumatic aortic (valve) insufficiency (principal); I51.89 Other ill-defined heart diseases | CPT/HCPCS: 93306 ==

== ENCOUNTER → 2024-07-17 12:39 | Outpatient (BNV) | payer MEDICARE, MEDICAID, SELFPAY | PROVIDERS: PCP Internal Medicine; Visit Provider Radiology Diagnostic Radiology | DX: R59.9 Enlarged lymph nodes, unspecified (principal) | CPT/HCPCS: 76536 ==

== ENCOUNTER 2024-08-16 13:25 | Outpatient (AMB) | payer MEDICARE, MEDICAID, SELFPAY ==
--- NOTE | 2024-08-16 13:29 | A.OFFVIS_ITS ---
Vital Signs 08/16/24 13:31 Height 5 ft 6 in Weight 171 lb 15.369 oz BMI 27.8 BP 128/72 Blood Pressure Location Lt brachial Position Sitting Pulse 76 Intake Visit Reasons: Gastric Ulcer moved up from 4pm Intake Note: Kirsten presents in the office as a new patient for a Gastric Ulcer. CC: She states that she is having lots of gasses. She states that the medication is not doing anything for her. Sometimes she has constipation but states her stomach is full of gas. She states she drinks green juice and it helps her at times. Electrical Service Technician Required: Yes Allergies No Known Allergies Allergy (Verified 08/16/24 13:29) HPI Comments Details: 69 y.o F with PMH of gastric ulcer 2020, [place]esophageal [place] s[place]p [place]et [place] [facility] [place] is here for main complaint of bloating. Reports bloating started almost 6 months ago. With this she is constipated. Otherwise no N/V, change in appetite. No unintentional weight loss. Drinks green juice to help with BMs. [facility] Medical History (Updated 08/16/24 @ 14:07 by Mariann Lombardo MD) Gastric ulcer GERD (gastroesophageal reflux disease) Colon cancer screening Hiatal hernia Postoperative hypothyroidism Hypothyroidism Vitamin D deficiency Thyroid nodule Essential hypertension Gastritis Osteoporosis Osteopenia Surgical History Hx of colonoscopy Hx of esophageal hernia repair Hx of thyroidectomy History of endoscopy Status post removal of thyroid nodule Hx of tonsillectomy History of partial hysterectomy History of throat surgery History of delivery Status post incision and drainage Family History Sister History of breast cancer Father Automobile collision Mother Heart attack Social History Alcohol intake: never Patient Tobacco Use Status: Former Tobacco user Tobacco use type: Cigarette Cigarettes Per Day: 5 Years Smoked: 10 Current occupational status: employed 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 Review of Systems Const All systems reviewed & are unremarkable except as noted in HPI and below Physical Exam Vital Signs: Last Vital Signs Pulse 76 08/16/24 13:31 BP 128/72 08/16/24 13:31 BMI result Body Mass Index 27.8 No apparent distress Nonicteric Abdomen soft, nondistended Alert and oriented x3, normal gait Assessment & Plan Assessment & Plan (1) Gastric ulcer: Code(s): K25.9 - Gastric ulcer, unspecified as acute or chronic, without hemorrhage or perforation Category: Medical (2) Bloating: Code(s): R14.0 - Abdominal distension (gaseous) Category: Medical Plan Ddx for bloating include IMO/constipation, PUD, malabsorption conisidered but pt without any abd pain/diarrhea. Plan: - Mgmt of constipation with increased hydration, fiber intake, senna and miralax - Start empiric omeprazole 20 daily - Barium swallow to r/o wrap slippage/malfunction - EGD to be booked Follow up after EGD Orders: Orders [place] barium swallow Today K21.9 - Gastro-esophageal reflux disease without esophagitis Medications: New polyethylene glycol 3350 (Miralax) 17 grams PO DAILY 238 grams 0RF omeprazole 20 mg PO DAILY 90 days 90 caps 0RF Coding Level of Care Code New Pt Level 4 (87415) Diagnoses Gastric ulcer K25.9 Bloating R14.0
[2024-08-16 13:31] VITALS: BP 128/72; PULSE 76; BMI 27.8
--- OUTSIDE RECORDS SUMMARY | 2024-08-16 16:01 | XMS_ITS | Encounter Summary ---
Author Organization [employer] Address [address] [facility] 7t [place] [address] Care Team Providers Care Neighborhood Service Center Director Name Role Phone Unavailable Primary Care Provider Unavailabl e Reason for Visit * Reason Comments Med Refill Encounter Details Date Type Department Care Team (Late Contact Info) Description 10/20/2023 Refill [facility] [address] [place] [address] [facility] [address] [place] [address] Vitamin D deficiency Social History Tobacco Use Types Packs/Day Years Used Date Smoking Tobacco: Never Smokeless Tobacco: Never Alcohol Use Standard Drinks/Week Comments Never 0 (1 standard drink = 0.6 oz pur e alcohol) Comments Unknown Sex and Gender Information Value Date Recorded Sex Assigned at Female 04/13/2022 10:20 AM EDT Legal Sex Female 10:20 AM EDT Gender Identity Female 04/13/2022 10:20 AM EDT Sexual Orientation Choose not to disclose 2021 10:20 AM EDT documented as of this encounter Plan of Treatment Upcoming Encounters Date Type Department Care Team (Late st Contact Info) Description 10/23/2024 10:45 AM EDT Office Visit [facility] [address] [place] [address] Whitney Fleming MD [address] [place] [address] documented as of this encounter Visit Diagnoses Diagnosis Vitamin D deficiency documented in this encounter
--- OUTSIDE RECORDS SUMMARY | 2024-08-16 16:01 | XMS_ITS | Encounter Summary ---
Author Organization [employer] Address [address] [facility] 7t [place] [address] Care Team Providers Care Alcoholic Counselor Name Role Phone Unavailable Primary Care Provider Unavailabl e Reason for Visit * Reason Onset Date Comments New pt appt 08/03/2024 Encounter Details Date Type Department Care Team (Late Contact Info) Description 08/03/2024 Telephone [facility] [address] [place] [address] Kishan Daly MD [address] [place] [address] New pt appt Social History Tobacco Use Types Packs/Day Years [...] AM EDT documented as of this encounter Miscellaneous Notes * Telephone Encounter - Alexa Johnson - 08/03/2024 3:20 PM EST TC placed to patient for scheduling of new patient visit. Agreed to 10-23-2024 with Lonnie Medical Conditions: High blood pressure Apptmnt reminder and release form sent via mail . documented in this encounter Plan of Treatment Upcoming Encounters Date Type Department Care Team (Late Contact Info) Description 10/23/2024 10:45 AM EDT Office Visit [facility] [address] [place] [address] Whitney Fleming MD [address] [place] [address] documented as of this encounter Visit Diagnoses Not on filedocumented in this encounter
--- OUTSIDE RECORDS SUMMARY | 2024-08-16 16:01 | XMS_ITS | Clinical Summary ---
Author Organization [employer] Address [address] [facility] 7t [place] [address] Care Team Providers Care Interior Design Principal Name Role Phone Unavailable Primary Care Provider Unavailabl e Allergies No known active allergies Medications allopurinol (Zyloprim) 100 MG tablet Take 100 mg by mouth in the morning. 2 Active D3 Super Strength 50 MCG (1999 UT) capsule Take 50 mcg by mouth in the morning. 2 Active colchicine (Colcrys) 0.6 MG tablet Take 1 tablet by mouth every 12 (twelve) hours. 0 Active naproxen (Naprosyn) 500 MG tablet Take 1 tablet by mouth every 12 (twelve) hours. 1 Active polyvinyl alcohol (Liquifilm Tears) 1.4 % ophthalmic solution one drop in each eye 3 times a day 0 Active oxyCODONE (Roxicodone) 5 MG immediate release tablet TAKE 1 TO 2 TABLETS BY MOUTH EVERY 6 HOURS NEEDED FOR PAIN 2 Active acetaminophen (Tylenol 8 Hour) 650 MG ER tabletIndications :COVID Take 1 tablet (650 mg) by mouth every 8 (eight) hours if needed for moderate pain or mild pain. 90 tablet 2 2 Active omeprazole (PriLOSEC) [address] capsuleIndication s:Heartburn TAKE 1 CAPSULE BY MOUTH TWICE DAILY IN THE MORNING AND AT BEDTIME 60 capsule 5 3 Active amLODIPine (Norvasc) 5 MG tabletIndications :Primary hypertension TAKE 1 TABLET BY MOUTH TWICE DAILY IN THE MORNING AND AT BEDTIME 180 tablet 1 3 Active carvedilol (Coreg) 12.5 MG tablet TAKE 1 TABLET BY MOUTH TWICE DAILY IN THE MORNING AND IN THE EVENING WITH FOOD 180 tablet 3 Active Aspirin Low Dose 81 MG EC tabletIndications :Hypertension, unspecified type TAKE 1 TABLET BY MOUTH EVERY EVENING 90 tablet 2 3 Active Oyster Shell Calcium + D3 500-10 MG-MCG tabletIndications :Vitamin D deficiency TAKE 1 TABLET BY MOUTH TWICE DAILY IN THE MORNING AND IN THE EVENING 180 tablet 1 3 Active sertraline (Zoloft) 100 MG tablet Take 100 mg by mouth in the morning. 3 Active Stool Softener/Laxative 50-8.6 MG tablet TAKE 2 TABLETS BY MOUTH EVERY DAY AT BEDTIME 4 Active lisinopril 20 MG tablet Take 20 mg by mouth in the morning. 4 Active levothyroxine (Synthroid, Levoxyl) 75 MCG tablet Take 75 mcg by mouth in the morning. 4 Active Active Problems No known active problems Encounters Date Type Department Care Team Description 08/03/2024 Telephone [facility] [address] [place] [id number] Kishan Daly MD New pt appt from Last 3 Months Family History Medical History Relation Name Comments Breast cancer Sister Relation Name Status Comments Sister Social History Tobacco Use Types Packs/Day Years Used Date Smoking Tobacco: Never Smokeless Tobacco: Never Tobacco Cessation:Counseling Given: Not Answered Alcohol Use Standard Drinks/Week Comments Never 0 (1 standard drink = 0.6 oz pur e alcohol) Comments Unknown Sex and Gender Information Value Date Recorded Sex Assigned at Female 04/13/2022 10:20 AM EDT Legal Sex Female 10:20 AM EDT Gender Identity Female 04/13/2022 10:20 AM EDT Sexual Orientation Choose not to disclose 2021 10:20 AM EDT Last Filed Vital Signs Vital Sign Reading Time Taken Comments Blood Pressure 100/70 01/14/2023 12:56 PM EDT Pulse 76 08/29/2021 12:03 AM EDT Temperature - - Respiratory Rate - - Oxygen Saturation - - Inhaled Oxygen Concentration - - Weight 81.1 kg (178 lb 12.8 oz) 022 12:03 AM EDT Height 164 cm (5' 4.57 ) 08/29/2021 12: 03 AM EDT Body Mass Index 30.15 08/29/2021 12:03 AM EDT Plan of Treatment Upcoming Encounters Date Type Department Care Team (Late st Contact Info) Description 10/23/2024 10:45 AM EDT Office Visit [facility] [address] [place] [address] Whitney Fleming MD [address] [place] [address] Health Maintenance Due Date Last Done Comments CT Colonography 1955 Colonoscopy 1955 Colorectal Cancer Screening 1955 Dental Prophylaxis 1955 Depression Screening 1955 FIT DNA/Cologuard 1955 FIT 1955 FOBT 1955 SDOH Screening 1955 Sigmoidoscopy 1955 Alcohol/Substance Use Screening 1965 Hepatitis C Screening 1971 Dental Oral Exam 07/18/2023 01/14/2023 Mammogram 11/22/2023 11/21/2021, 05/14, 05/23/2021, Additional history exists Dental X-Ray: Bitewings 01/16/2024 01/14/2023, 12/21 COVID-19 Vaccine ( season) 2024 03/18/2021, 08/20/2020, 07/30/2020 Influenza Vaccine (#1) 2024 , 04/23/2022, 04/17/2021, Additional history exists Tobacco Screening 10/03/2024 10/04/2023 Lipid Panel 01/08/2026 01/08/2021 Dental X-Ray: Full Mouth 01/15/2026 01/14/2023 RSV Patients and Patients Aged 60 years or older (1 - 1-dose 75+ series) 01/12/2028 DTaP/Tdap/Td Vaccines (3 - Td or Tdap) 10/16/2030 10/16/2020, 11/22/2012, 06/14/2007, Additional history exists Hepatitis A Vaccines Aged Out 03/05/2009 No long er eligible based on patient's age to complete this topic Hepatitis B Vaccines Completed 09/11/2013, 06/27/2013, 02/10/2013, Additional history exists Pneumococcal Vaccine: 50+ Years Completed 11/12/2023, 06/19/2019, 04/14/2018 Zoster Vaccines Completed 03/14/2024, 10/14, 04/14/2018 HIB Vaccines Aged Out No longer eligi ble based on patient's age to complete this topic HPV Vaccines Aged Out No longer eligi ble based on patient's age to complete this topic IPV Vaccines Aged Out No longer eligi ble based on patient's age to complete this topic Meningococcal Vaccine Aged Out No chace nakita eligible based on patient's age to complete this topic RSV under 20 months Aged Out No longe r eligible based on patient's age to complete this topic Rotavirus Vaccines Aged Out No longer eligible based on patient's age to complete this topic Procedures Procedure Name Priority Date/Time Associated Diagnosis Comments INTRAORAL - COMPLETE SERIES OF RADIOGRAPHIC IMAGES Routine 01/14/2023 1:00 PM EDT Dental caries COMPREHENSIVE ORAL EVALUATION - NEW OR ESTABLISHED PATIENT Routine 01/14/2023 1:00 PM EDT Dental caries MAMMOGRAM GENERIC Routine 11/21/2021 1:4 5 PM EDT LIPID PANEL, STANDARD Routine 01/08/2021 8:04 AM EDT from Last 3 Months or Most Recently Relevant to Health Maintenance Results * Mammography Report 1 (11/21/2021 1:45 PM EDT) Anatomical Region Laterality Modality Breast Bilateral Mammography 11/21/2021 1:45 PM EDT Narrative 12/17/2021 4:13 PM EDT Refer to the Notes tab for result details [facility] Procedure: Mammography Report 1 Procedure Note Provider, MD Brady - 09/06/2022 Refer to the Notes tab for result details [facility] Procedure: Mammography Report 1 Tj Strong MD IMG BI PROCEDURES Final Resu lt * (ABNORMAL) LIPID PANEL, STANDARD (01/08/2021 8:04 AM EDT) Chol/HDLC Ratio 4.3 <5.0 (calc) [facility] Cholesterol, Total 162 <200 mg/dL [facility] HDL Cholesterol 38(L) > OR = 50 mg/dL [facility] LDL Cholesterol 105(H) mg/dL (calc) [facility] Comment: Reference range: <100 ?? Desirable range <100 mg/dL for primary prevention; ?? <70 mg/dL for patients with CHD or diabetic patients ?? with > or = 2 CHD risk factors. ?? LDL-C is now calculated using the Jessica ?? calculation, which is a validated novel method providing ?? better accuracy than the Friedewald equation in the ?? estimation of LDL-C. ?? Isidoro BRUNO et al. TALIB. 2013;310(19): 2035-7541 ?? (http://[employer]/faq/FYO116) Non-HDL Cholesterol 124 <130 mg/dL (calc) [facility] Comment: For patients with diabetes plus 1 major ASCVD risk ?? factor, treating to a non-HDL-C goal of <100 mg/dL ?? (LDL-C of <70 mg/dL) is considered a therapeutic ?? option. Triglycerides 93 <150 mg/dL [facility] 01/08/2021 8:04 AM EDT us Tj Strong MD LAB BLOOD ORDERABLES Final R esult [facility] [address] from Last 3 Months or Most Recently Relevant to Health Maintenance Insurance [facility] STANDARD MEDICARE DENTAL-[facility] MEDICAID STAND ADULT
--- OUTSIDE RECORDS SUMMARY | 2024-08-16 16:01 | XMS_ITS | Continuity of Care Document ---
Author Organization [facility] [address] [place] [address] Phone [phone] Care Team Providers Care Utilities Service Investigator Name Role Phone Leora Grande Care Team Information Public Health Staff Nurse [phone] Problems Active Problems Provider Date Essential hypertension [...] every day Marlon Sauer M.D. 11/02/2022 Levothyroxine Ezlpim34jiu Tablets Take 1 Tablet By Mouth Every Morning Melony Schuster, DO Amlodipine Qgnegjlr7xj Tablets Take 1 Tablet By Mouth Every Morning Adlakjean pierre, Leora Acetaminophen KD019kw Tablets ER Take 1 Tablet By Mouth Three Times Daily as Needed For Pain Adlakha, Leora Nbaryhfaer14.5mg Tablets 1 by mouth twice a day Saima Stauffer Oyflyjdkayo094tt Tablets Take 1 Tablet By Mouth Every Morning Meghan Mccollum Ndlmemcdzr19vn Tablets [place] Fariha Kuoa [place] Vital Signs Date Vital Result Comment 11/02/2022 1:34pm BP Systolic 100 mmHg BP Diastolic 80 mmHg Heart Rate 61 /min Height 64.5 inches 5'4.50 Weight 165.00 lb BMI (Body Mass Index) 27.9 kg/m2 Results Test Acquired Date Facility Test Result H/L Range N ote Laboratory test finding 11/02/2022 [facility] TSH With Reflex To [...] Sauer M.D. Plan of Treatment 11/02/2022 - Malron Sauer M.D.* E03.9 Hypothyroidism, unspecified * I10 Essential hypertension * M10.9 Gout * * New Labs:* TSH With Reflex To FT4, Ordered: 11/02/22 * Thyroglobulin, Tumor Marker W/Reflex, Ordered: 11/02/22 Functional Status Description No Information Available Mental Status Description No Information Available Referrals Description No Information Available
== END 2024-08-16 14:47 | disposition home or self-care (01) ==
PROVIDERS: PCP Internal Medicine; Visit Provider Internal Medicine
DX: K25.9 Gastric ulcer, unspecified as acute or chronic, without hemorrhage or perforation (principal); R14.0 Abdominal distension (gaseous)
CPT/HCPCS: 99204

== ENCOUNTER → 2024-08-16 13:25 | Outpatient (BNVA) | payer MEDICARE, MEDICAID, SELFPAY | PROVIDERS: PCP Internal Medicine; Visit Provider Internal Medicine | DX: K25.9 Gastric ulcer, unspecified as acute or chronic, without hemorrhage or perforation (principal); R14.0 Abdominal distension (gaseous); K21.9 Gastro-esophageal reflux disease without esophagitis | CPT/HCPCS: 99202 ==

== ENCOUNTER 2024-08-19 10:18 | Outpatient (REF) | payer MEDICARE, MEDICAID, SELFPAY ==
--- OUTSIDE RECORDS SUMMARY | 2024-08-19 10:21 | XMS_ITS | Encounter Summary ---
Author Organization [employer] Address [address] [facility] 7t [place] [address] Care Team Providers Care Textiles Printer Name Role Phone Unavailable Primary Care Provider Unavailabl e Reason for Visit * Reason Comments Med Refill Encounter Details Date Type Department Care Team (Late Contact Info) Description 10/20/2023 Refill [facility] [address] [place] [address] [facility] [address] [place] [address] Vitamin D deficiency Social History Tobacco Use [...] Description 10/23/2024 10:45 AM EDT Office Visit [facility] [address] [place] [address] Whitney Fleming MD [address] [place] [address] documented as of this encounter Visit Diagnoses Diagnosis Vitamin D deficiency documented in this encounter
--- OUTSIDE RECORDS SUMMARY | 2024-08-19 10:21 | XMS_ITS | Encounter Summary ---
Author Organization [employer] Address [address] [facility] [address]t [place] [address] Care Team Providers Care Fan Mail Editor Name Role Phone Unavailable Primary Care Provider Unavailabl e Reason for Visit * Reason Onset Date Comments New pt appt 08/03/2024 Encounter Details Date Type Department Care Team (Late Contact Info) Description 08/03/2024 Telephone [facility] [address] [place] [address] Kishan Daly MD [address] [place] [address] New pt appt Social History Tobacco Use [...] Description 10/23/2024 10:45 AM EDT Office Visit [facility] [address] [place] [address] Whitney Fleming MD [address] [place] [address] documented as of this encounter Visit Diagnoses Not on filedocumented in this encounter
--- OUTSIDE RECORDS SUMMARY | 2024-08-19 10:22 | XMS_ITS | Clinical Summary ---
Author Organization [employer] Address [address] [facility] 7t [place] [address] Care Team Providers Care Group Worker Name Role Phone Unavailable Primary Care Provider [...] Type Department Care Team Description 08/03/2024 Telephone [facility] [address] [place] [address] [phone] Kishan Daly MD New pt appt from [...] Description 10/23/2024 10:45 AM EDT Office Visit [facility] [address] [place] [address] Whitney Fleming MD [address] [place] [address] Health Maintenance Due Date Last Done Comments [...] ?? Isidoro BRUNO et al. TALIB. 2013;310(19): 7345-9937 ?? (http://Granular.Springshot/faq/CWK475) Non-HDL Cholesterol 124 <130 mg/dL (calc) [facility] Comment: For patients with diabetes plus 1 major ASCVD risk ?? factor, treating to a non-HDL-C goal of <100 mg/dL ?? (LDL-C of <70 mg/dL) is considered a therapeutic ?? option. Triglycerides 93 <150 mg/dL [facility] 01/08/2021 8:04 AM EDT us Tj Strong MD LAB BLOOD ORDERABLES Final R esult [facility] [address] from Last 3 Months or Most Recently Relevant to Health Maintenance Insurance [facility] STANDARD MEDICARE DENTAL-[facility] MEDICAID STAND ADULT
--- OUTSIDE RECORDS SUMMARY | 2024-08-19 10:22 | XMS_ITS | Continuity of Care Document ---
Author Organization [facility] [address] [place] [address] Phone [phone] Care Team Providers Care Dope Pourer Name Role Phone Leora Grande Care Team Information Machine Printer Hose [phone] Problems Active Problems Provider Date Essential hypertension [...] every day Marlon Sauer M.D. 11/02/2022 Levothyroxine [id number] Tablets Take 1 Tablet By Mouth Every Morning Melony Schuster, DO Amlodipine Orhtwwef3aa Tablets Take 1 Tablet By Mouth Every Morning Adlakjean pierre, Leora Acetaminophen [id number] Tablets ER Take 1 Tablet By Mouth Three Times Daily as Needed For Pain Adlakha, Leora Jfclmxcxkj38.5mg Tablets 1 by mouth twice a day Saima Staufefr Yvqgbdgzatf698id Tablets Take 1 Tablet By Mouth Every Morning Meghan Mccollum Qevvufhvof06yl Tablets [place] Fariha [place] Leora Grande Vital Signs Date Vital Result Comment 11/02/2022 1:34pm BP Systolic 100 mmHg BP Diastolic 80 mmHg Heart Rate 61 /min Height 64.5 inches 5'4.50 Weight 165.00 lb BMI (Body Mass Index) 27.9 kg/m2 Results Test Acquired Date Facility Test Result H/L Range N ote Laboratory test finding 11/02/2022 [facility] Reference Lab TSH With Reflex To [...]
[2024-08-19 12:23] LABS: Free T4 (Free Thyroxine) 1.18 ng/dL (0.71-1.85); Thyroid Stimulating Hormone 1.27 uIU/mL (0.32-4.0)
== END 2024-08-19 10:19 | disposition home or self-care (01) ==
LOC: HO.LAB 10:18
PROVIDERS: PCP Internal Medicine; Visit Provider Student in an Organized Health Care Education/Training Program
DX: E89.0 Postprocedural hypothyroidism (principal)
CPT/HCPCS: 36415; 84439; 84443

== ENCOUNTER 2024-08-24 12:36 | Outpatient (AMB) | payer MEDICARE, MEDICAID, SELFPAY ==
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
[2024-08-24 12:41] VITALS: BP 126/68; PULSE 64; O2SAT 100; BMI 27.6
--- OUTSIDE RECORDS SUMMARY | 2024-08-24 15:52 | XMS_ITS | Clinical Summary ---
Author Organization [employer] Address [address] [facility] 7t [place] [address] Care Team Providers Care Freight Clerk Name Role Phone Unavailable Primary Care Provider [...] Care Team Description 08/03/2024 Telephone [facility] [address] [place] [address] [phone] Kishan Daly MD New pt appt from [...] 10:45 AM EDT Office Visit [facility] [address] [place] [address] Whitney Fleming MD [address] [place] [address] Health Maintenance Due Date Last Done Comments [...] ?? Isidoro BRUNO et al. TALIB. 2013;310(19): 4629-3353 ?? (http://Coolio.ALEXANDALEXA/faq/AUF601) Non-HDL Cholesterol 124 <130 mg/dL (calc) [facility] Comment: For patients with diabetes plus 1 major ASCVD risk ?? factor, treating to a non-HDL-C goal of <100 mg/dL ?? (LDL-C of <70 mg/dL) is considered a therapeutic ?? option. Triglycerides 93 <150 mg/dL [facility] 01/08/2021 8:04 AM EDT us Tj Strong MD LAB BLOOD ORDERABLES Final R esult [facility] [address] from Last 3 Months or Most Recently Relevant to Health Maintenance Insurance [facility] STANDARD MEDICARE DENTAL-[facility] MEDICAID STAND ADULT
--- OUTSIDE RECORDS SUMMARY | 2024-08-24 15:52 | XMS_ITS | Continuity of Care Document ---
Author Organization [facility] [address] [place] [address] Phone [phone] Care Team Providers Care Senior Quality Assurance Specialist Name Role Phone Leora Grande Care Team Information Reducer [phone] Problems Active Problems Provider Date Essential hypertension [...] every day Marlon Sauer M.D. 11/02/2022 Levothyroxine Mtuvup70opu Tablets Take 1 Tablet By Mouth Every Morning Melony Schuster, DO Amlodipine Yojxidpi1hd Tablets Take 1 Tablet By Mouth Every Morning Adlakjean pierre, Leora Acetaminophen HL101eg Tablets ER Take 1 Tablet By Mouth Three Times Daily as Needed For Pain Adlakha, Leora Nivazguroy54.5mg Tablets 1 by mouth twice a day Saima Stauffer Nyobmarfpbv016rz Tablets Take 1 Tablet By Mouth Every Morning Meghan Mccollum Pammmmhqai38yh Tablets [place] Fariha [place]ta [place] Leora Grande Vital Signs Date Vital Result Comment 11/02/2022 1:34pm BP Systolic 100 mmHg BP Diastolic 80 mmHg Heart Rate 61 /min Height 64.5 inches 5'4.50 Weight 165.00 lb BMI (Body Mass Index) 27.9 kg/m2 Results Test Acquired Date Facility Test Result H/L Range N ote TSH With Reflex To FT4 11/02/2022 [facility] Reference Lab TSH With Reflex To [...]
--- OUTSIDE RECORDS SUMMARY | 2024-08-24 15:52 | XMS_ITS | Encounter Summary ---
Author Organization [employer] Address [address] [facility] 7t [place] [address] Care Team Providers Care Eap Clinician Name Role Phone Unavailable Primary Care Provider Unavailabl e Reason for Visit * Reason Onset Date Comments New pt appt 08/03/2024 Encounter Details Date Type Department Care Team (Late Contact Info) Description 08/03/2024 Telephone [facility] [address] [place] [address] Kishan Daly MD [address] [place] [address] New pt appt Social History Tobacco Use [...] Description 10/23/2024 10:45 AM EDT Office Visit [facility] [address] [place] [address] Whitney Fleming MD [address] [place] [address] documented as of this encounter Visit Diagnoses Not on filedocumented in this encounter
--- OUTSIDE RECORDS SUMMARY | 2024-08-24 15:52 | XMS_ITS | Encounter Summary ---
Author Organization [employer] Address [address] [facility] 7t [place] [address] Care Team Providers Care Chain Hoist Operator Name Role Phone Unavailable Primary Care Provider Unavailabl e Reason for Visit * Reason Comments Med Refill Encounter Details Date Type Department Care Team (Late Contact Info) Description 10/20/2023 Refill [facility] [address] [place] [address] [facility] [address] [place] [address] Vitamin D deficiency Social History Tobacco Use [...] Description 10/23/2024 10:45 AM EDT Office Visit [facility] [address] [place] [address] Whitney Fleming MD [address] [place] [address] documented as of this encounter Visit Diagnoses Diagnosis Vitamin D deficiency documented in this encounter
== END 2024-08-24 13:20 | disposition home or self-care (01) ==
LOC: HO.ENCR 12:37
PROVIDERS: PCP Internal Medicine; Visit Provider Student in an Organized Health Care Education/Training Program
DX: E89.0 Postprocedural hypothyroidism (principal)
CPT/HCPCS: 99213

== ENCOUNTER → 2024-08-24 12:36 | Outpatient (BNVA) | payer MEDICARE, MEDICAID, SELFPAY | PROVIDERS: PCP Internal Medicine; Visit Provider Student in an Organized Health Care Education/Training Program | DX: E89.0 Postprocedural hypothyroidism (principal); M81.0 Age-related osteoporosis without current pathological fracture | CPT/HCPCS: 99212 ==

== ENCOUNTER 2024-10-09 09:38 | Outpatient (REF) | payer MEDICARE, MEDICAID, SELFPAY ==
[2024-10-09 09:56] LABS: MANUAL DIFF FLAG NO
--- OUTSIDE RECORDS SUMMARY | 2024-10-09 10:47 | XMS_ITS | Clinical Summary ---
Author Organization [employer] Address [address] [facility] 7t [place] [address] Care Team Providers Care Transformer Tester Name Role Phone Unavailable Primary Care Provider [...] Type Department Care Team Description 08/03/2024 Telephone [facility] [address] [place] [address] [phone] Kishan Daly MD New pt appt from [...] Description 10/23/2024 10:45 AM EDT Office Visit [facility] [address] [place] [address] Whitney Fleming MD [address] [place] [address] Health Maintenance Due Date Last Done Comments [...] ?? Isidoro BRUNO et al. TALIB. 2013;310(19): 8114-5408 ?? (http://PHHH[employer] Inc.MDC Media/faq/CLA849) Non-HDL Cholesterol 124 <130 mg/dL (calc) [facility] Comment: For patients with diabetes plus 1 major ASCVD risk ?? factor, treating to a non-HDL-C goal of <100 mg/dL ?? (LDL-C of <70 mg/dL) is considered a therapeutic ?? option. Triglycerides 93 <150 mg/dL [facility] 01/08/2021 8:04 AM EDT us Tj Strong MD LAB BLOOD ORDERABLES Final R esult [facility] [address] from Last 3 Months or Most Recently Relevant to Health Maintenance Insurance [facility] STANDARD MEDICARE DENTAL-[facility] MEDICAID STAND ADULT
--- OUTSIDE RECORDS SUMMARY | 2024-10-09 10:47 | XMS_ITS | Encounter Summary ---
Author Organization [employer] Address [address] [facility] 7t [place] [address] Care Team Providers Care Medical Research Tech Name Role Phone Unavailable Primary Care Provider Unavailabl e Reason for Visit * Reason Comments Med Refill Encounter Details Date Type Department Care Team (Late Contact Info) Description 10/20/2023 Refill [facility] [address] [place] [address] [facility] [address] [place] [address] Vitamin D deficiency Social History Tobacco Use [...] Description 10/23/2024 10:45 AM EDT Office Visit [facility] [address] [place] [address] Whitney Fleming MD [address] [place] [address] documented as of this encounter Visit Diagnoses Diagnosis Vitamin D deficiency documented in this encounter
--- OUTSIDE RECORDS SUMMARY | 2024-10-09 10:47 | XMS_ITS | Continuity of Care Document ---
Author Organization [facility] [address] [place] [address] Phone [phone] Care Team Providers Care Clinical Dietetic Technician Name Role Phone Leora Grande Care Team Information Tier Over [phone] Problems Active Problems Provider Date Essential hypertension [...] every day Marlon Sauer M.D. 11/02/2022 Levothyroxine Bsklrg00vfq Tablets Take 1 Tablet By Mouth Every Morning Melony Schuster, DO Amlodipine Mlbagffs1fr Tablets Take 1 Tablet By Mouth Every Morning Adlakjean pierre, Leora Acetaminophen TD405sv Tablets ER Take 1 Tablet By Mouth Three Times Daily as Needed For Pain Adlakha, Leora Liteugcqrj61.5mg Tablets 1 by mouth twice a day Saima Stauffer Vjgaxmmifww070tj Tablets Take 1 Tablet By Mouth Every Morning Meghan Mccollum Zudcjyfmnl44uy Tablets [employer] Fariha Tableta [place] Leora Grande Vital Signs Date Vital Result Comment 11/02/2022 1:34pm BP Systolic 100 mmHg BP Diastolic 80 mmHg Heart Rate 61 /min Height 64.5 inches 5'4.50 Weight 165.00 lb BMI (Body Mass Index) 27.9 kg/m2 Results Test Acquired Date Facility Test Result H/L Range N ote TSH With Reflex To FT4 11/02/2022 [facility] Reference Lab TSH With Reflex [...]
[2024-10-09 10:48] LABS: Basophils Absolute Auto 0.1 X10*3/uL (0.0-0.2); Eosinophils Absolute Auto 0.1 X10*3/uL (0.0-0.4); Eosinophils Percent Auto 2.1 % (0-4); Hematocrit 43.9 % (37.0-47.0); Imm Gran Abs Auto 0.01 X10*3/uL (0.00-0.03); Imm Gran Pct Auto 0.1 % (0.0-0.4); Lymphocytes Absolute Auto 2.4 X10*3/uL (1.2-4.9); Lymphocytes Percent Auto 34.9 % (20-40); Mean Corpuscular HGB Conc 34.2 g/dl (31.0-35.0); Mean Corpuscular Hemoglobin 31.6 pg (27.0-33.0); Mean Corpuscular Volume 92.6 fL (80.0-98.0); Mean Platelet Volume 11.2 fL (9.4-12.3); Monocytes Absolute Auto 0.7 X10*3/uL (0.1-1.2); Monocytes Percent Auto 10.1 % (2-11); Neutrophils Absolute Auto 3.5 x10*3/uL (2.0-8.3); Neutrophils Percent Auto 51.8 % (45-73); Platelet Count 280 X10*3/uL (160-400); Red Blood Count 4.74 X10*6/uL (4.20-5.50); Red Cell Distribution Width 13.2 % (11.0-16.0); White Blood Count 6.8 X10*3/uL (4.8-10.8)
[2024-10-09 11:11] LABS: Alanine Aminotransferase 29 U/L (0-31); Albumin Level 4.1 g/dL (3.5-5.0); Alkaline Phosphatase 91 U/L (39-117); Anion Gap 14 (12-20); Aspartate Amino Transferase 33 U/L (5-31); Bilirubin Total 0.5 mg/dL (0.0-1.0); Blood Urea Nitrogen 15 mg/dL (9-16); Calcium 9.5 mg/dL (8.4-10.2); Carbon Dioxide 26 mmol/L (22-29); Chloride 106 mmol/L (96-108); Cholesterol 177 mg/dL (<200); Estimated Glomerular Filt Rate > 60; Glucose Random 89 mg/dL (60-115); HDL Cholesterol 44 mg/dL (>40); LDL Cholesterol Calculated 113 mg/dL (<100); Potassium 4.3 mmol/L (3.3-5.1); Sodium 142 mmol/L (135-145); Total Protein 7.3 g/dL (6.5-8.0); Triglycerides 104 mg/dL (<150)
[2024-10-09 11:16] LABS: Thyroid Stimulating Hormone 3.16 uIU/mL (0.32-4.0)
== END 2024-10-09 09:39 | disposition home or self-care (01) ==
LOC: HO.LAB 09:38
PROVIDERS: PCP Internal Medicine; Visit Provider Internal Medicine
DX: E78.00 Pure hypercholesterolemia, unspecified (principal); E89.0 Postprocedural hypothyroidism; F32.5 Major depressive disorder, single episode, in full remission; I10 Essential (primary) hypertension
CPT/HCPCS: 36415; 80053; 80061; 84443; 85025

== ENCOUNTER 2024-11-10 08:45 | Outpatient (REF) | payer MEDICARE, MEDICAID, SELFPAY ==
--- NOTE | ~2024-11-10 | FL_ITS ---
EXAMINATION: XR BARIUM SWALLOW CLINICAL INFORMATION: There is reflux disease without esophagitis. COMPARISON: None available. TECHNIQUE: Routine barium swallow was performed in upright view under lateral fluoroscopy with thick barium . Patient was subsequently placed prone lying and thin barium was administered orally. FINDINGS: On oral administration of thick barium there is normal propagation of bolus from the oral cavity through the pharynx, esophagus into stomach without any obstruction or narrowing. There is mild retention of barium in the valleculae which clears with subsequent dry swallowing. On placing patient in prone lying and oral demonstration of thin barium there is good distention of the entire esophagus without any intraluminal filling defect. There is a small sliding hiatal hernia with mild gastroesophageal reflux. There is evidence of tertiary peristalsis in the distal esophagus in supine lying position. FLUOROSCOPY TIME: 1 minute 40 seconds DOSE AREA PRODUCT: 1288 uGy-m2 (microgray-meter squared) FL/FL barium swallow IMPRESSION: Small to moderate size sliding hiatal hernia with mild gastroesophageal reflux. Electronically signed by: Manuel Gates MD 11/10/2024 04:31 PM EDT
--- OUTSIDE RECORDS SUMMARY | 2024-11-10 08:47 | XMS_ITS | Encounter Summary ---
Author Organization [employer] Address [address] [facility] 7t [place] [address] Care Team Providers Care Axle Bearing Polisher Name Role Phone Whitney Fleming MD Primary Care Provider + Reason for Visit * Reason Comments Med Refill Encounter Details Date Type Department Care Team ([facility] Contact Info) Description 10/20/2023 Refill [facility]INE [address] [place] [address] [facility] [address] [place] [address] Vitamin D deficiency Social History Tobacco Use [...] Department Care Team (Late Contact Info) Description 05/09/2025 3:00 PM EST Office Visit [facility] OPTOMETRY [address] [place] [address] La Nena Anderson, OD [address] [place] [address] documented as of this encounter Visit Diagnoses Diagnosis Vitamin D deficiency documented in this encounter Care Teams Axle Bearing Polisher Relationship Specialty Start Date End Date Whitney Fleming MD [address] [place] [phone] PCP - General Internal Medicine 10/23/24 documented as of this encounter
== END 2024-11-10 08:46 | disposition home or self-care (01) ==
LOC: HO.XRAY 08:45
PROVIDERS: PCP Internal Medicine; Visit Provider Internal Medicine
DX: K21.9 Gastro-esophageal reflux disease without esophagitis (principal)
CPT/HCPCS: 74220

== ENCOUNTER → 2024-11-10 08:48 | Outpatient (BNV) | payer MEDICARE, MEDICAID, SELFPAY | PROVIDERS: PCP Internal Medicine; Visit Provider Radiology Diagnostic Radiology | DX: K44.9 Diaphragmatic hernia without obstruction or gangrene (principal) | CPT/HCPCS: 74246 ==

== ENCOUNTER 2025-05-23 08:41 | Outpatient (AMB) | payer MEDICARE, MEDICAID, SELFPAY ==
--- NOTE | 2025-05-23 09:33 | A.OFFVIS_ITS ---
Vital Signs 05/23/25 09:34 Height 5 ft 6 in Weight 173 lb 11.588 oz BMI 28.0 BP 122/66 Blood Pressure Location Lt brachial Position Sitting Pulse 65 Pulse Source Pulse Oximeter Pulse Oximetry (%) 96 Oxygen Delivery Method Room Air Intake Visit Reasons: OA Intake Note: Patient presents for osteoarthritis of the knees/gout, she was last seen here by Dr. Romero on 03/03/2023. Cutter Wet Machine Required: Yes Cutter Wet Machine Language: Packer Inspector Services: Cutter Wet Machine Present Cutter Wet Machine Name: Kirsten [id number] Information Interpreted: non-clinical & clinical Accompanied by: Self / Same As Patient Allergies No Known Allergies Allergy (Verified 05/23/25 09:39) HPI Comments Details: 70-year-old female with a past medical history of osteoarthritis and gout coming in today as a new patient. She has been a patient at this practice. She was last seen in [address] Delgado, that time her gout was under control, and she was on allopurinol 100 mg daily. Today she reports that her gout is under control she has not had any flares. She is maintained on allopurinol 100 mg daily. However she has bilateral knee pain which is getting worse. She has been seeing Orthopedics and she has been getting cortisone shot. She reports that her last cortisone shot was in November by arthritis treatment center in [place]. She reports that the cortisone shot gave her relief for 2 months however the pain has come back. I reviewed her x-rays of the knees which show moderate to severe arthritis In both knees, tricompartmental osteoarthritis. Along with this she endorses pain in bilateral CMCs, however has not notice any active synovitis. She also has some pain in the elbows. ROS: no fevers, weight loss, sob, bloody diarreha, no gout flare.no active sy novitis in any joints PHYSICAL EXAM General: Comfortable CVS: RRR Respiratory: clear to auscultation bilaterally. Good respiratory effort Skin: No lesions seen MSK: Patient is able to make a fist bilaterally. No tenderness in the MCPs PIPs. Full range of motion of the shoulders. Limited range of motion in the hips, patient has pain on flexion and extension of the knees.no synovitis in the feet bilaterally . - [facility] Medical History (Updated 08/16/24 @ 14:07 by Mariann Lombardo MD) Gastric ulcer GERD (gastroesophageal reflux disease) Colon cancer screening Hiatal hernia Postoperative hypothyroidism Hypothyroidism Vitamin D deficiency Thyroid nodule Essential hypertension Gastritis Osteoporosis Osteopenia Surgical History Hx of colonoscopy Hx of esophageal hernia repair Hx of thyroidectomy History of endoscopy Status post removal of thyroid nodule Hx of tonsillectomy History of partial hysterectomy History of throat surgery History of delivery Status post incision and drainage Family History Sister History of breast cancer Father Automobile collision Mother Heart attack Social History Alcohol intake: never Patient Tobacco Use Status: Former Tobacco user Tobacco use type: Cigarette Cigarettes Per Day: 5 Years Smoked: 10 Current occupational status: employed 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 Physical Exam Vital Signs: Last Vital Signs Pulse 65 05/23/25 09:34 BP 122/66 05/23/25 09:34 Pulse Ox 96 05/23/25 09:34 Oxygen Delivery Method Room Air 05/23/25 09:34 BMI result Body Mass Index 28.0 Office Procedures AMB Joint Injection/Aspiration Joint Injection/Aspiration Primary Site: Right Knee Coding 27303 - Large joint Procedure code (CPT) selection complete AMB Joint Injection/Aspiration Joint Injection/Aspiration Primary Site: Left Knee Coding 24779 - Large joint Procedure code (CPT) selection complete Office Meds lidocaine (PF) 10 mg/mL (1 %) injection solution Performing Provider: Samreen Basilio MD [place] [facility] Administered by: Samreen Basilio MD on 05/23/25 10:14 Dose Route Admin Location Dispensed Lot Number Expiration Date [facility] Installment Account Checker 1 mL Infiltration 2 mL [id number] 02/12/28 16338-897-25 [facility] Total Dispensed Waste 2 mL 50 % Kenalog 40 mg/mL suspension for injection Performing Provider: Samreen Basilio MD Performing Location[place] [facility] Administered by: Samreen Basilio MD on 05/23/25 10:14 Dose Route Admin Location Dispensed Lot Number Expiration Date [facility] Installment Account Checker 40 mg intra-articular KNEE RIGHT 1 mL [id number] 12/11/26 [address]- 1 [employer] Total Dispensed Waste 1 mL 0 % lidocaine (PF) 10 mg/mL (1 %) injection solution Performing Provider: Samreen Basilio MD Performing Location: [facility] Administered by: Samreen Basilio MD on 05/23/25 10:14 Dose Route Admin Location Dispensed Lot Number Expiration Date [facility] Installment Account Checker 1 mL Infiltration 2 mL [id number] 02/12/28 09494-109-32 [facility] Total Dispensed Waste 2 mL 50 % Kenalog 40 mg/mL suspension for injection Performing Provider: Samreen Basilio MD Performing Location: [facility] Administered by: Samreen Basilio MD on 05/23/25 10:14 Dose Route Admin Location Dispensed Lot Number Expiration Date [facility] Installment Account Checker 40 mg intra-articular KNEE LEFT 1 mL [id number] 12/11/26 [address]-2 [employer] Total Dispensed Waste 1 mL 0 % Assessment & Plan Assessment & Plan (1) Gout: Code(s): M10.9 - Gout, unspecified Category: Medical Qualifiers: Gout site: foot Gout etiology: idiopathic Chronicity: chronic Laterality: left Presence of tophus: without tophus Qualified Code(s): M1A.0720 - Idiopathic chronic gout, left ankle and foot, without tophus (tophi) (2) Bilateral primary osteoarthritis of knee: Code(s): M17.0 - Bilateral primary osteoarthritis of knee Category: Medical (3) Osteoarthritis of hands, bilateral: Code(s): M19.041 - Primary osteoarthritis, right hand; M19.042 - Primary osteoarthritis, left hand Category: Medical Plan Procedure was explained to the patient and informed consent was obtained. ? Risks associated with the procedure were discussed with the patient including but not limited to bleeding, infection, drug reactions and reactions to the topical anesthetic. Patient made aware of signs to look out for infectious complications. The right knee was identified and confirmed with patient. ?This was subsequently cleaned with chlorhexidine x 2. ? The area was then anesthetized using ethyl chloride spray. 40 mg Kenalog with 1 cc 1% lidocaine was injected without issue. ?Minimal to no bleeding. ?Patient tolerated procedure. Procedure was explained to the patient and informed consent was obtained. ? Risks associated with the procedure were discussed with the patient including but not limited to bleeding, infection, drug reactions and reactions to the topical anesthetic. Patient made aware of signs to look out for infectious complications. The left knee was identified and confirmed with patient. ?This was subsequently cleaned with chlorhexidine x 2. ? The area was then anesthetized using ethyl chloride spray. 40 mg Kenalog with 1 cc 1% lidocaine was injected without issue. ?Minimal to no bleeding. ?Patient tolerated procedure. 70-year-old female presenting to me as a new patient for the evaluation of gout and osteoarthritis. Patient was interested in bilateral steroid injections in bilateral knees for osteoarthritis. I reviewed with her the risks and benefits of doing this procedure. Also reviewed with her other treatment modalities for osteoarthritis including Synvisc injection and bilateral knee replacement surgery. Patient is interested in going to Orthopedic surgery to further explore surgical options, I will refer her there. In the meantime she is stable on 100 mg of allopurinol, has not had any recurrent gout flare. I will recheck CBC CMP uric acid today. I will follow up with her in 1 year to see how she is doing on current therapy Orders: Orders Uric Acid Today M17.0 - Bilateral primary osteoarthritis of knee, M19.041 - Primary osteoarthritis, right hand, M19.042 - Primary osteoarthritis, left hand, M1A.0720 - Idiopathic chronic gout, left ankle and foot, without tophus (tophi) Complete Blood Count Auto Diff Today Z79.899 - Other terminal operator (current) drug therapy Comprehensive Met. 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
[2025-05-23 09:34] VITALS: BP 122/66; PULSE 65; O2SAT 96; BMI 28.0
== END 2025-05-23 10:24 | disposition home or self-care (01) ==
LOC: HO.RHES 08:42
PROVIDERS: PCP Internal Medicine; Visit Provider Student in an Organized Health Care Education/Training Program
DX: M1A.0720 Idiopathic chronic gout, left ankle and foot, without tophus (tophi) (principal); M17.0 Bilateral primary osteoarthritis of knee; M19.041 Primary osteoarthritis, right hand; M19.042 Primary osteoarthritis, left hand
CPT/HCPCS: 20610; 99214

== ENCOUNTER → 2025-05-23 08:41 | Outpatient (BNVA) | payer OTHER, SELFPAY | PROVIDERS: PCP Internal Medicine; Visit Provider Student in an Organized Health Care Education/Training Program | DX: M17.0 Bilateral primary osteoarthritis of knee (principal); M19.041 Primary osteoarthritis, right hand; M19.042 Primary osteoarthritis, left hand; M1A.0720 Idiopathic chronic gout, left ankle and foot, without tophus (tophi); Z79.899 Other long term (current) drug therapy | CPT/HCPCS: 20610; 99212; J2003; J3301 ==

== ENCOUNTER 2025-06-04 13:35 | Outpatient (AMB) | payer MEDICARE, MEDICAID, SELFPAY ==
[2025-06-04 13:48] VITALS: BP 130/82; PULSE 65; BMI 27.6
--- NOTE | 2025-06-04 13:48 | A.OFFVIS_ITS ---
Vital Signs 06/04/25 13:48 Height 5 ft 6 in Weight 171 lb 1.259 oz BMI 27.6 BP 130/82 Blood Pressure Location Lt brachial Position Sitting Pulse 65 Pulse Source Pulse Oximeter Intake Visit Reasons: 1 yr f/up s/p echo Medical Program Specialist Required: Yes Medical Program Specialist Services: Medical Program Specialist Offered & Declined Accompanied by: Niece Allergies No Known Allergies Allergy (Verified 06/04/25 13:52) Medication List - Last Reconciled 06/04/25 by Jhonathan Jones NP acetaminophen ER (Tylenol Arthritis Pain) 650 mg PO Q8H PRN allopurinol 100 mg PO QAM amlodipine 5 mg PO DAILY aspirin 81 mg PO BEDTIME blood pressure test kit-medium As directed carvedilol 12.5 mg PO BID cholecalciferol (vitamin D3) (Vitamin D3) 50 mcg PO QAM levothyroxine 75 mcg PO DAILY lisinopril 20 mg PO DAILY polyethylene glycol 3350 (Miralax) 17 grams PO DAILY sennosides-docusate sodium 8.6-50 mg (Senna-S) 2 tabs PO BEDTIME white petrolatum-mineral oil 57.3-42.5 % (Lubricant Eye) ophthalmic (eye) BEDTIME HPI Comments Details: This is a 70-year-old female patient coming in for a follow-up visit, accompanied by her granddaughter who helped with the interpretation throughout the visit. Patient with a history of hypertension who has been following our office for dizziness. Today, patient is reporting unchanged dizziness after taking her morning pills and is otherwise denying any associated symptoms of chest discomfort, shortness of breath, palpitations, orthopnea, PND, leg edema, presyncope, or syncope. Patient is reporting compliance with all her medications and is taking carvedilol and lisinopril in the morning followed by amlodipine in the afternoon and carvedilol at bedtime. [facility] Medical History Gastric ulcer GERD (gastroesophageal reflux disease) Colon cancer screening Hiatal hernia Postoperative hypothyroidism Hypothyroidism Vitamin D deficiency Thyroid nodule Essential hypertension Gastritis Osteoporosis Osteopenia Surgical History Hx of colonoscopy Hx of esophageal hernia repair Hx of thyroidectomy History of endoscopy Status post removal of thyroid nodule Hx of tonsillectomy History of partial hysterectomy History of throat surgery History of delivery Status post incision and drainage Family History Sister History of breast cancer Father Automobile collision Mother Heart attack Social History Alcohol intake: never Patient Tobacco Use Status: Former Tobacco user Tobacco use type: Cigarette Cigarettes Per Day: 5 Years Smoked: 10 Current occupational status: employed 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 Review of Systems Const Denies daytime sleepiness, Denies difficulty sleeping, Denies snoring, Denies stops breathing during sleep and Denies weakness Card Denies chest pain, Denies rapid heart rate, Denies irregular heart rhythm, Denies claudication, Denies leg edema, Denies lightheadedness, Denies palpitations, Denies dyspnea, Denies dyspnea on exertion, Denies orthopnea, Denies paroxysmal nocturnal dyspnea and Denies slow heart rate Resp Denies cough, Denies dyspnea, Denies dyspnea on exertion and Denies snoring GI Reports no additional complaints, Denies hematochezia, Denies change in stool c haracter and Denies dyspepsia Musc Denies abnormal gait, Denies muscle weakness and Denies numbness Neuro Denies abnormal gait, Denies numbness and Denies weakness Endo Denies palpitations Physical Exam Vital Signs: Last Vital Signs Pulse 65 06/04/25 13:48 BP 130/82 06/04/25 13:48 BMI result Body Mass Index 27.6 Const General: cooperative, healthy appearing, comfortable and no acute distress Orientation/consciousness: patient oriented x3 HEENT Head: Yes normal to inspection Neck Neck: Yes normal visual inspection, Yes trachea midline and Yes supple Chest Chest palpation & inspection: normal inspection of the chest Resp Effort & Inspection: normal respiratory effort Auscultation: clear to auscultation bilaterally, no crackles, no rales, no rhonchi and no wheezes Cardio Jugular venous distension: no JVD Palpation: normal PMI Rate: regular rate Rhythm: regular rhythm Heart sounds: S1 normal heart sound present, S2 normal heart sound present, no click, no gallops, no murmurs and no rubs Peripheral pulses: Peripheral pulses 2+ throughout GI Inspection: Yes normal to inspection Palpation (GI): Soft to palpation Auscultation: normal bowel sounds Skin General skin exam: no rashes or lesions noted Neuro General: patient oriented x3 Extrem General: Yes normal to inspection, No no pedal edema and No calf tenderness Psych Appearance: grossly normal Mental Status: mental status grossly normal Speech and movement: Normal speech and movement present Office Procedures EKG Details: EKG today showed normal sinus rhythm, rate 65 beats per minute, nonspecific STT wave, normal MI, [place]. [address]-Orqxvhruspqfydoic, Complete Assessment & Plan Assessment & Plan (1) Essential hypertension: Code(s): I10 - Essential (primary) hypertension Category: Medical Plan: Blood pressure today is well-controlled. Patient is reporting unchanged dizziness usually after her morning medications. Patient's blood pressures has been mostly in the 130s systolically. Patient was advised to take lisinopril at bedtime however she is taking this in the morning with her carvedilol. Advised to changing it to bedtime. Continue amlodipine in the afternoon. Advised on l ow-salt diet. Advised on adequate hydration. Most recently we opted an echocardiogram on 06/22 24 that showed normal LV systolic function with the ejection fraction between 60-65%, intermitted feeling pressures, trace aortic valve regurgitation, and mild dilation of ascending aorta at 3.8 cm. (2) Dizziness: Code(s): R42 - Dizziness and giddiness Category: Medical Plan: As above. Advised on heart healthy diet, regular exercise, adequate hydration, med compliance and management of vascular risk factors. Follow up in 1 year, sooner if needed. In the interim, patient will call the office with any concerns or change in symptoms. This note was generated using voice recognition software. While every effort has been made to ensure accuracy and proper glaze handler, there may be occasional errors that could affect the content or meaning of the described symptoms. Orders: Orders AMB EKG-In Office Today I10 - Essential (primary) hypertension Coding Level of Care Code Est Pt Level 4 (20157) Add On Problem Visit Only Diagnoses Essential hypertension I10 Dizziness R42 CPT Codes EKG - CPT: 01817-Dkvrncknkxwkpahwn, Complete ([id number]) Time Spent (min) 31 Comment Time spent in reviewing the chart, test results, assessment, counseling and documentation.
--- OUTSIDE RECORDS SUMMARY | 2025-06-04 17:02 | XMS_ITS | Encounter Summary ---
Author Organization [employer] Address [address] [place] [address] Care Team Providers Care Doughnut Machine Operator Name Role Phone Whitney Fleming MD Primary Care Provider + Reason for Visit * Reason Comments Med Refill Encounter Details Date Type Department Care Team (Late st Contact Info) Description 10/20/2023 Refill [facility] MEDICINE [address] [place], [place] [phone] [facility] [address] [place], [place] [phone] Vitamin D deficiency Social History Tobacco Use [...] as of this encounter Plan of Treatment Not on file documented as of this encounter Visit Diagnoses Diagnosis Vitamin D deficiency documented in this encounter Care Teams Doughnut Machine Operator Relationship Specialty Start Date End Date Whitney Fleming MD [address] [place] [address] PCP - General Internal Medicine 10/23/24 documented as of this encounter
--- OUTSIDE RECORDS SUMMARY | 2025-06-04 17:02 | XMS_ITS | Encounter Summary ---
Author Organization [email or web address] Address [address] [place] [address] Care Team Providers Care Proposal Consultant Name Role Phone Whitney Fleming MD Primary Care Provider + Encounter Details Date Type Department Care Team ([facility] st Contact Info) Description 04/25/2025 Orders Only [facility] MEDICINE [address] [place] [address] [place], [place] Social History Tobacco Use Types Packs/Day Years Used Date Smoking Tobacco: Never Smokeless Tobacco: Never Alcohol Use Standard Drinks/Week Comments Never 0 (1 standard drink = 0.6 oz pur e alcohol) Alcohol Answer Date Recorded How often do you have a drink containing alcohol ? 0 04/26/2025 Average Number of Drinks Not on file 025 Frequency of Binge Drinking Not on file 04/14 Depression Answer Date Recorded Patient Health Questionnaire-9 Score 21 04/26/2025 Patient Health Questionnaire-9 Score 21 04/26/2025 Last PHQ-9: Questionnaire Data Not on file 1 06/26/2024 Housing Stability Answer Date Recorded What is your housing situation today? I have ivone kern 10/16/[address] you li ve. Do you have problems with any of the following? None of the above 10/16/2024 Food Insecurity Answer Date Recorded Within the past 12 months, y ou worried that your food would run out before you got money to buy more: Never True 10/16/2024 Within the past 12 months,th e food you bought just didn't last and you didn't have enough money to get more: Never True 10/2024 Transportation Answer Date Recorded In the past 12 months, has l ack of transportation kept you from medical appts, meetings, work or from getting things needed for daily living? No 10/16/2024 Utilities Answer Date Recorded In the past 12 months, has t he electric, gas, oil or water company threatened to shut off services in your home? No 10/16/2024 Depression Answer Date Recorded Patient Health Questionnaire-2 Score 6 04/26/2025 Internet Access Answer Date Recorded Internet Access Q1 Yes 10/16/2024 Internet Access Q2 Not on file 10/16/2024 Comments Unknown Sex and Gender Information Value [...] Diagnoses Not on filedocumented in this encounter Care Teams Proposal Consultant Relationship Specialty Start Date End Date Whitney Fleming MD [address] [place] [id number] PCP - General Internal Medicine 10/23/24 documented as of this encounter
--- OUTSIDE RECORDS SUMMARY | 2025-06-04 17:03 | XMS_ITS | Continuity of Care Document ---
Author Organization [facility] [address] [place] [address] Phone [phone] Care Team Providers Care Official Court Reporter Name Role Phone Leora Grande Care Team Information Judicial Assistant [phone] Problems Active Problems Provider Date Essential hypertension Marlon Sauer M.D. Ons et: 11/02/2022 H/O: chirag Sauer M.D. Onset: Major depressive disorder Marlon Sauer M.D. Onset: 11/02/2022 Hypothyroidism Marlon Sauer M.D. Onset: Gout Marlon Sauer M.D. Onset: Social History Type Date Description Comments Sex Female Sex Unknown Tobacco Use Start: Unknown End: Unknown Quit ETOH Use Never used alcohol Tobacco Use Start: Unknown End: Unknown Patient is a former smoker Allergies and adverse reactions Description No Known Drug Allergies Medications Active Medications SIG Qnty Indications Ordering Provider Date Aspirin 8181mg Tablets DR 1 by mouth every day Marlon Sauer M.D. 11/02/2022 Levothyroxine Qorvoc30jmh Tablets Take 1 Tablet By Mouth Every Morning Melony Schuster, DO Amlodipine Kiavkajx6jb Tablets Take 1 Tablet By Mouth Every Morning Adlakha, Leora Acetaminophen NR263ha Tablets ER Take 1 Tablet By Mouth Three Times Daily as Needed For Pain Adlakha, Leora Iymffhwnwh71.5mg Tablets 1 by mouth twice a day Saima Stauffer Lqgnkysggws295ua Tablets Take 1 Tablet By Mouth Every Morning Meghan Mccollum Cuegvjisuk67nt Tablets [place] Fariha Duarte [place] Leora Grande Vital Signs Date Vital Result Comment 11/02/2022 1:34pm BP Systolic 100 mmHg BP Diastolic 80 mmHg Heart Rate 61 /min Height 64.5 inches 5'4.50 Weight 165.00 lb BMI (Body Mass Index) 27.9 kg/m2 Results Test Acquired Date Facility Test Result H/L Range N ote TSH With Reflex To FT4 11/02/2022 [facility] TSH With Reflex To FT4 [...]
--- OUTSIDE RECORDS SUMMARY | 2025-06-04 17:03 | XMS_ITS | Clinical Summary ---
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 1 Active oxyCODONE (Roxicodone) 5 MG immediate release tablet TAKE 1 TO 2 TABLETS BY MOUTH EVERY 6 HOURS NEEDED FOR PAIN 2 Active amLODIPine (Norvasc) 5 MG tabletIndication s:Primary hypertension TAKE 1 TABLET BY MOUTH TWICE DAILY IN THE MORNING AND AT BEDTIME 180 tablet 1 3 Active carvedilol (Coreg) 12.5 MG tablet TAKE 1 TABLET BY MOUTH TWICE DAILY IN THE MORNING AND IN THE EVENING WITH FOOD 180 tablet 3 Active Aspirin Low Dose 81 MG EC tabletIndication s:Hypertension, unspecified type TAKE 1 TABLET BY MOUTH EVERY EVENING 90 tablet 2 3 Active Oyster Shell Calcium + D3 500-10 MG-MCG tabletIndication s:Vitamin D deficiency TAKE 1 TABLET BY MOUTH TWICE DAILY IN THE MORNING AND IN THE EVENING 180 tablet 1 3 Active Stool Softener/Laxativ e 50-8.6 MG tablet TAKE 2 TABLETS BY MOUTH EVERY DAY AT BEDTIME 4 Active lisinopril 20 MG tablet Take 20 mg by mouth in the morning. 4 Active levothyroxine (Synthroid, Levoxyl) 75 MCG tablet Take 75 mcg by mouth in the morning. 4 Active acetaminophen (Tylenol 8 Hour) 650 MG ER tabletIndication s:COVID Take 1 tablet (650 mg) by mouth every 8 (eight) hours if needed for moderate pain or mild pain. 90 tablet 2 5 Active dextran 70-hypromellose (artificial tears) 0.1-0.3 % ophthalmic solution Administer 1 drop into both eyes if needed in the morning, at noon, and at bedtime for dry eyes. 15 mL 11 5 026 Active Ventolin HFA 108 (90 Base) MCG/ACT inhaler INHALE 1 TO 2 PUFFS EVERY 4 HOURS NEEDED 5 Active benazepril (Lotensin) 20 MG tablet Take 1 tablet by mouth Once per day. 5 Active calcium carbonate 1500 (600 Ca) MG tablet Take 2 tablets by mouth Once per day. 5 Active sertraline (Zoloft) 100 MG tablet Take 1 tablet by mouth Once per day. 5 Active GAS RELIEF 125 MG capsule Take 1 capsule by mouth every 6 (six) hours during the day. 5 Active polyvinyl alcohol (Liquifilm Tears) 1.4 % ophthalmic solution Administer 1 drop into both eyes if needed for dry eyes. 15 mL 11 04/26/2025 11:13 AM EST 5 025 Discontin ued(Thera py completed ) Active Problems Problem Noted Date Diagnosed Date Gouty arthritis of left foot 04/26/2025 Shortness of breath 04/26/2025 Dry eyes 04/26/2025 Follicular thyroid carcinoma (CMS/HCC) 5 Hypothyroidism 11/02/2022 Assessment & Plan (01/12/2025 2:45 PM EDT): TSH is at goal, continue levothyroxine 75 mcg/day and recheck in 8 months Advised to take levothyroxine on empty stomach Thyroid nodule 11/10/2020 Overweight 04/14/2018 Constipation 11/22/2012 Assessment & Plan (01/12/2025 2:46 PM EDT): Most likely related to calcium supplementation, advised to increase water intake, fiber, prune juice, flaxseed powder, pear, and raisins Will obtain report of last colonoscopy Chest pain 05/10/2012 Gastroesophageal reflux disease 11/26/2011 Gastritis 11/26/2011 Hypertension 11/26/2011 Assessment & Plan (01/12/2025 2:40 PM EDT): Controlled. Compliant w/meds Continue carvedilol + amlodipine same dose Counseled re low salt diet/increase moderate physical activity. Check home BP BIW and prn CP/CORNEJO/BEAULIEU Non smoking patient. Follow-up in 6 months Osteoporosis 11/23/2011 Assessment & Plan (01/12/2025 2:41 PM EDT): Continue calcium + D Request BMD test from [facility], otherwise will order 1 next year. 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; Combined forms of age-related cataract of both eyes; Presbyopia of both eyes 05/18/2025 Travel 04/26/2025 9:00 AM EST Office Visit [facility] [address] [place] [address] Whitney Fleming MD Follicular thyroid carcinoma (CMS/HCC) (HCC) (Primary Dx); Gouty arthritis of left foot; Shortness of breath; Dry eyes; Encounter for immunization 04/26/2025 Travel 04/26/2025 Telephone [facility] [address] [place] [address] Whitney Fleming MD No Show 04/25/2025 Orders Only [facility] [address] [place] [address] PurvisAmy dodd DEA 04/25/2025 Telephone [facility] [address] [place] [id number] Whitney Fleming MD CHART PREP from Last 3 Months Immunizations Immunization Administration Dates Next Due Hep A, Adult 03/05/2009 Hep B, adult 09/11/2013, 4,02/10/2013,12/20 INFLUENZA VACCINE QUADRIVALE NT RECOMBINANT PRESERVATIVE FREE RIV4 03/11/2020 Influenza High-dose Quadriva lent Preservative Free 04/17/2021 Influenza Quadrivalent Adjuvanted 03/18/2023 Influenza injectable quadriv alent preservative free 04/23/2022 Influenza, High Dose Seasona l, Preservative Free 04/26/2025,06/19/2019,04/14/2018 Influenza, IIV3, injectable 04/17/2021,0 03/11/2020,06/19/2019,04/14 MMR 03/08/2009 Pneumococcal Conjugate PCV 13 04/14/2018 Pneumococcal Conjugate PCV 20 11/12/2023 Pneumococcal Polysaccharide PPSV23 06/19/2019 TD (adult), 2 Lf tetanus tox oid, preservative free, adsorbed 06/14/2007 Td (adult), unspecified 06/14/2007 Tdap 10/16/2020,11/22/2012 Zoster, Recombinant 03/14/2024,11/12/2023 Zoster, live 04/14/2018 Family History Medical History Relation Name Comments Breast cancer Sister Relation Name Status Comments Sister Social History Tobacco Use Types Packs/Day Years Used Date Smoking Tobacco: Former Cigarettes Smokeless Tobacco: Never Tobacco Cessation:Counseling Given: Not Answered Comments:Pt quit 30 yrs ago Alcohol Use Standard Drinks/Week Comments Never 0 [...] Access Q2 Not on file 10/16/2024 Comments No Sex and Gender Information Value Date Recorded Sex Assigned at Female 04/13/2022 10:20 AM EDT Legal Sex Female 10:20 AM EDT Gender Identity Female 04/13/2022 10:20 AM EDT Sexual Orientation Choose not to disclose 2021 10:20 AM EDT Last Filed Vital Signs Vital Sign Reading Time Taken Comments Blood Pressure 102/76 04/26/2025 9:37 AM EST Pulse 60 04/26/2025 9:37 AM EST Temperature 36.3 C (97.3 F) 04/26/2025 9:37 AM EST Respiratory Rate 20 04/26/2025 9:37 AM EST Oxygen Saturation - - Inhaled Oxygen Concentration - - Weight 78.9 kg (174 lb) 04/26/2025 9:37 AM EST Height 167.6 cm (5' 6 ) 04/26/2025 9:37 AM EST Body Mass Index 28.08 04/26/2025 9:37 AM EST Plan of Treatment Health Maintenance Due Date Last Done Comments CT Colonography 1953 Colonoscopy 1953 Colorectal Cancer Screening 1953 Dental Prophylaxis 1953 FIT DNA/Cologuard 1953 FIT 1953 FOBT 1953 Sigmoidoscopy 1953 Hepatitis C Screening 1971 Dental Oral Exam 07/18/2023 01/14/2023 Mammogram 11/22/2023 11/21/2021, 05/14, 05/23/2021, Additional history exists Dental X-Ray: Bitewings 01/16/2024 01/14/2023, 12/21 COVID-19 Vaccine ( season) 2025 03/18/2021, 08/20/2020, 07/30/2020 SDOH Screening 10/16/2025 10/16/2024 Depression Monitoring 10/24/2025 04/26/2025, 025 Lipid Panel 01/08/2026 01/08/2021 Dental X-Ray: Full Mouth 01/15/2026 01/14/2023 Alcohol/Substance Use Screening 04/26/2026 04/26/2025 Tobacco Screening 06/01/2026 06/01/2025 RSV Patients and Patients Aged 60 years [...] 04/14/2018 Zoster Vaccines Completed 03/14/2024, 10/14, 04/14/2018 Influenza Vaccine Completed 04/26/2025, , 04/23/2022, Additional history exists HIB Vaccines Aged Out No longer eligi ble based on patient's age to complete this topic HPV Vaccines Aged Out No longer eligi ble based on patient's age to complete this topic IPV Vaccines Aged Out No longer eligi ble based on patient's age to complete this topic Meningococcal B Vaccine Aged Out No l onger eligible based on patient's age to complete [...] result details Legacy Procedure: Mammography Report 1 us Tj Strong MD IMG BI PROCEDURES Final Resu lt * (ABNORMAL) LIPID PANEL, STANDARD (01/08/2021 8:04 AM EDT) Chol/HDLC Ratio 4.3 <5.0 (calc) [facility] Cholesterol, Total 162 <200 mg/dL [facility] HDL Cholesterol 38(L) > OR = 50 mg/dL [facility] LDL Cholesterol 105(H) mg/dL (calc) [facility] Comment: Reference range: <100 Desirable range <100 mg/dL for primary prevention; <70 mg/dL for patients with CHD or diabetic patients with > or = 2 CHD risk factors. LDL-C is now calculated using the Jessica calculation, which is a validated novel method providing better accuracy than the Friedewald equation in the estimation of LDL-C. Isidoro SS et al. TALIB. 2013;310(19): 4192-7380 (http://education.Axxana/faq/CKP189) Non-HDL Cholesterol 124 <130 mg/dL (calc) [facility] Comment: For patients with diabetes plus 1 major ASCVD risk factor, treating to a non-HDL-C goal of <100 mg/dL (LDL-C of <70 mg/dL) is considered a therapeutic option. Triglycerides 93 <150 mg/dL [facility] 01/08/2021 8:04 AM EDT us Tj Strong MD LAB BLOOD ORDERABLES Final R esult [facility] [address] from Last 3 Months or Most Recently Relevant to Health Maintenance Insurance [facility] STANDARD [facility]ICARE [facility] STAND ADULT Care Teams Air Export Operations Agent Relationship Specialty Start Date End Date Whitney Fleming MD [address] [place] [address] PCP - General Internal Medicine 10/23/24
== END 2025-06-04 14:19 | disposition home or self-care (01) ==
LOC: HO.HCS 13:35
PROVIDERS: PCP Internal Medicine
DX: I10 Essential (primary) hypertension (principal); R42 Dizziness and giddiness
CPT/HCPCS: 93010; 99214; G2211

== ENCOUNTER → 2025-06-04 13:35 | Outpatient (BNVA) | payer OTHER, SELFPAY | PROVIDERS: PCP Internal Medicine | DX: I10 Essential (primary) hypertension (principal); R42 Dizziness and giddiness | CPT/HCPCS: 93005; 99212 ==